=== PATIENT | female | born 1965 | race Caucasian/White ===

== ENCOUNTER → 2018-09-08 | Outpatient (CLI) | payer MEDICARE ==
--- NOTE | 2018-09-17 12:58 | MM ---
Reason for exam: screening (asymptomatic). Last mammogram was performed 1 year and 1 month ago. History: Patient is postmenopausal and had first child at age 34. Family history of breast cancer in sister at age 43. Took hormonal contraceptives for 20 years beginning at age 13. Took estrogen for 4 years beginning at age 42. Took progesterone for 4 years beginning at age 42. Physical Findings: A clinical breast exam by your physician is recommended on an annual basis and results should be correlated with mammographic findings. MG 3D Screening Mammo W/Cad Bilateral CC and MLO view(s) were taken. Prior study comparison: July 24, 2017, mammogram, performed at [facility]. September 26, 2015, mammogram, performed at [facility]. September 11, 2015, mammogram, performed at [facility]. October 06, 2012, bilateral digital screening mammo w/CAD. September 26, 2011, bilateral digital screening mammo w/CAD. The breast tissue is heterogeneously dense. This may lower the sensitivity of mammography. There are benign appearing round calcifications bilaterally. There is no discrete abnormality. ASSESSMENT: Benign, BI-RAD 2 RECOMMENDATION: Routine screening mammogram of both breasts in 1 year.
== END | disposition home or self-care (01) ==
LOC: RADMAMWWP 15:03
PROVIDERS: ATTEND Family Medicine
DX: Z12.31 Encounter for screening mammogram for malignant neoplasm of breast (principal)
CPT/HCPCS: 77063; 77067

== ENCOUNTER → 2018-11-04 | Outpatient (CLI) | payer MEDICARE | END | disposition home or self-care (01) | LOC: LABWHC1 13:21 | PROVIDERS: ATTEND Nurse Practitioner Acute Care | DX: I49.9 Cardiac arrhythmia, unspecified (principal) | CPT/HCPCS: 36415; 93005 ==

== ENCOUNTER → 2019-02-25 | Outpatient (CLI) | payer MEDICARE ==
--- NOTE | 2019-02-25 12:16 | MR ---
EXAMINATION TYPE: MR hip RT wo con DATE OF EXAM: 02/25/2019 COMPARISON: None HISTORY: Right hip pain Standard multiplanar, multisequence MRI departmental protocol Multiplanar, multisequence images of the right hip were acquired. Diffusion weighted imaging was perf ormed. FINDINGS: There is a bilateral curvilinear abnormal signal involving the subarticular bilateral femoral heads t he findings are suspicious for avascular necrosis. There is mild narrowing of the bilateral hip joint spaces with attenuation of the subarticular cartilage compatible with osteoarthritis. Right-sided la jose appears grossly intact. There is no evidence for acute fracture or dislocation. No intraosseous lesion seen. No free fluid evident. No evidence for soft tissue mass. Heterogenous bone marrow signal involving the pelvis is nonspecific. Correlate with CBC possible bone marrow reconversion. Postopera tive changes lumbar spine. IMPRESSION: 1. Findings are felt to bilateral avascular necrosis. Correlate clinically. 2. Abnormal decreased bone marrow signal throughout the pelvis could reflect bone marrow reconversion . Correlate with CBC.
== END ==
LOC: RADMRIMAIN 11:08
PROVIDERS: ATTEND Psychiatry & Neurology Neurology
DX: R93.7 Abnormal findings on diagnostic imaging of other parts of musculoskeletal system (principal); M25.551 Pain in right hip; Z88.8 Allergy status to other drugs, medicaments and biological substances

== ENCOUNTER → 2019-06-11 | Outpatient (CLI) | payer MEDICARE ==
--- NOTE | 2019-06-11 17:33 | MR ---
EXAMINATION TYPE: MR leo/nicole wo/w con DATE OF EXAM: 06/11/2019 COMPARISON: CT scan lumbar spine 02/12/2011. HISTORY: Cervicalgia, Low back pain, Radiculopathy L TECHNIQUE: Multiplanar, multisequence images of the lumbar spine is performed without and with IV contrast, util izing 10 mL intravenous Gadavist Multiplanar multiecho imaging of the cervical spine was obtained without and with IV contrast. FINDINGS: Cervical vertebra have normal alignment. There is metal artifact from previous fusion surgery at C5-6 and C6-7. There is posterior endplate spur formation at C6-7 with mild encroachment on the spinal ca nal. Canal is narrowed to 7.5 mm. There is similar narrowing at C3-4 due to posterior disc herniation and endplate spur formation. The brainstem is intact. I see no focal bone destruction. Contrast imag es show no pathologic enhancement. There is no evidence of cervical cord edema. Lumbar vertebra have normal alignment. There is narrowing at L5-S1 disc space with posterior fusion s urgery. There is no sign of lumbar spinal stenosis. There is mild lateral recess stenosis due to face t arthropathy at L3-4. There is no lumbar paraspinal mass. There is no compression fracture. I see no focal bone destruction. The contrast images show no lumbar pathologic enhancement. IMPRESSION: Previous cervical spine fusion surgery. There is a mild relative spinal stenosis at C3-4 and C6-7 as above. No fracture. Previous lumbar spine posterior fusion surgery. No spinal stenosis. No fracture. Lumbar spine appears not significantly different than old exam.
== END | disposition home or self-care (01) ==
LOC: RADMRIMAIN 10:22
PROVIDERS: ATTEND Psychiatry & Neurology Neurology
DX: M48.02 Spinal stenosis, cervical region (principal); M54.16 Radiculopathy, lumbar region; M54.6 Pain in thoracic spine; R51 Headache; Z98.1 Arthrodesis status
CPT/HCPCS: 72156; 72158; A9585

== ENCOUNTER → 2019-06-13 | Outpatient (CLI) | payer MEDICARE ==
--- NOTE | 2019-06-13 17:24 | MR ---
EXAMINATION TYPE: MR thoracic spine wo con DATE OF EXAM: 06/13/2019 COMPARISON: None HISTORY: Pain in thoracic spine, [place] CONTRAST: Performed utilizing 0 mL intravenous Gadavist gadolinium contrast. TECHNIQUE: Multiplanar, multiecho imaging on a 3.0 Anusha magnet is performed through the thoracic spi ne. Spinal cord maintains normal signal through its visualized course. Vertebral body alignment is normal. Vertebral body heights are preserved. Mild disc space narrowing and disc desiccation is within the lower thoracic spine. And T11-12: There is broad-based disc bulge with mild to moderate anterior thecal sac compression. Th is comes in close approximation with the spinal cord. No cord deformity is evident. No spinal canal s tenosis or neural foraminal stenosis is evident. T10-11: Broad-based disc bulge has moderate anterior thecal sac compression. This has cord contact. C ord deformity is not evident. No spinal canal stenosis or neural foraminal stenosis is present T8-9: Mild right paracentral disc bulge is present with anterior thecal sac contact. No spinal canal stenosis or neural foraminal stenosis is present. No spinal canal stenosis is evident. IMPRESSIONS: 1. Disc bulging present [id number] and T8-11-12 with mild to moderate anterior thecal sac compression. 2. Cord contact without cord deformity is present T10-T11. 3. Degenerative disc changes and disc desiccation lower thoracic spine.
--- NOTE | 2019-06-13 17:29 | MR ---
EXAMINATION TYPE: MR brain wo con DATE OF EXAM: 06/13/2019 COMPARISON: None HISTORY: Pain in thoracic spine, [place] CONTRAST: Performed utilizing 0 mL intravenous Gadavist gadolinium contrast. TECHNIQUE: Multiplanar, multiecho imaging on a 3.0 Anusha magnet is performed through the brain. Stud y is performed within 24 hours of arrival to the hospital. The craniovertebral junction is normal. The pituitary is normal. Diffusion-weighted imaging is performed. No abnormal hyperintensity is present to suggest an acute i ntracranial infarct or acute ischemic change. There are scattered punctate deep white matter changes within the bilateral cerebral hemispheres. Fin dings are nonspecific but could be related to microvascular ischemic change. Ventricles and sulci are appropriate for the patient age. IMPRESSIONS: 1. Chronic appearing deep white matter ischemic type changes.
== END | disposition home or self-care (01) ==
LOC: RADMRIMAIN 12:47
PROVIDERS: ATTEND Psychiatry & Neurology Neurology
DX: I67.82 Cerebral ischemia (principal); R90.89 Other abnormal findings on diagnostic imaging of central nervous system; M51.84 Other intervertebral disc disorders, thoracic region; M51.34 Other intervertebral disc degeneration, thoracic region; M54.16 Radiculopathy, lumbar region; M54.2 Cervicalgia
CPT/HCPCS: 70551; 72146

== ENCOUNTER → 2019-09-23 | Outpatient (CLI) | payer MEDICARE ==
--- NOTE | 2019-09-26 10:24 | MM ---
Reason for exam: screening (asymptomatic). Last mammogram was performed 1 year ago. History: Patient is postmenopausal and had first child at age 34. Family history of breast cancer in sister at age 43. Took hormonal contraceptives for 20 years beginning at age 13. Took estrogen for 4 years beginning at age 42. Took progesterone for 4 years beginning at age 42. Physical Findings: A clinical breast exam by your physician is recommended on an annual basis and results should be correlated with mammographic findings. MG 3D Screening Mammo W/Cad Bilateral CC and MLO view(s) were taken. Prior study comparison: September 08, 2018, bilateral MG 3d screening mammo w/cad. July 24, 2017, mammogram, performed at [facility]. The breast tissue is heterogeneously dense. This may lower the sensitivity of mammography. There is a 5mm mass in the left upper outer quadrant 6cm from nipple. Benign appearing bilateral calcifications. New 3mm asymmetry of the superior right breast at far posterior depth 13cm from nipple. ASSESSMENT: Incomplete: need additional imaging evaluation, BI-RAD 0 RECOMMENDATION: Special view mammogram of both breasts. If lesion persists on supplemental views, image directed ultrasound is recommended. [facility] will attempt to contact patient to return for supplemental views and ultrasound if indicated.
== END | disposition home or self-care (01) ==
LOC: RADMAMWWP 13:41
PROVIDERS: ATTEND Family Medicine
DX: Z12.31 Encounter for screening mammogram for malignant neoplasm of breast (principal)
CPT/HCPCS: 77063; 77067

== ENCOUNTER → 2019-10-06 | Outpatient (CLI) | payer MEDICARE ==
--- NOTE | 2019-10-06 13:17 | MM ---
Reason for exam: additional evaluation requested from abnormal screening. Last mammogram was performed less than 1 month ago. History: Patient is postmenopausal and had first child at age 34. Family history of breast cancer in sister at age 43. Took hormonal contraceptives for 20 years beginning at age 13. Took estrogen for 4 years beginning at age 42. Physical Findings: Nurse did not find any significant physical abnormalities on exam. MG 3D Work Up W/Cad TOVA Bilateral spot compression MLO view(s) were taken. XCCL view(s) were taken of the right breast. Spot compression CC and LM view(s) were taken of the left breast. Prior study comparison: September 23, 2019, bilateral MG 3d screening mammo w/cad. September 08, 2018, bilateral MG 3d screening mammo w/cad. The breast tissue is heterogeneously dense. This may lower the sensitivity of mammography. There is a 3mm right upper outer quadrant far posterior depth mass, likely a lymph node but not seen on prior exams. Ultrasound will be performed. The previously seen abnormality resolves on additional views and appears as fibroglandular tissue compatible with summation on the left breast. These results were verbally communicated with the patient and result sheet given to the patient on 10/06/19. ASSESSMENT: Incomplete: need additional imaging evaluation, BI-RAD 0 RECOMMENDATION: Ultrasound of the right breast. (upper outer quadrant)
--- NOTE | 2019-10-06 13:18 | USB ---
Reason for exam: additional evaluation requested from abnormal screening. History: Patient is postmenopausal and had first child at age 34. Family history of breast cancer in sister at age 43. Took hormonal contraceptives for 20 years beginning at age 13. Took estrogen for 4 years beginning at age 42. US Breast Workup Limited RT Right limited breast ultrasound including focal area of concern, retroareolar and axilla demonstrates no cystic or solid lesion seen. No sonographic correlate to the mammographic right finding. These results were verbally communicated with the patient and result sheet given to the patient on 10/06/19. ASSESSMENT: Probably benign, BI-RAD 3 RECOMMENDATION: Follow-up diagnostic mammogram of the right breast in 6 months.
== END | disposition home or self-care (01) ==
LOC: RADMAMWWP 10:33
PROVIDERS: ATTEND Family Medicine
DX: R92.8 Other abnormal and inconclusive findings on diagnostic imaging of breast (principal)
CPT/HCPCS: 77066; 76642; G0279; 77062

== ENCOUNTER → 2019-12-29 | Outpatient (CLI) | payer MEDICARE ==
[2019-12-29 14:00] LABS: HCT 46.7 % (34.0-46.0); HGB 15.3 gm/dL (11.4-16.0); MCH 30.6 pg (25.0-35.0); MCHC 32.9 g/dL (31.0-37.0); MCV 93.1 fL (80.0-100.0); Mean Platelet Volume 10.1; Platelet Count 120 k/uL (150-450); RBC 5.01 m/uL (3.80-5.40); RDW 12.8 % (11.5-15.5); WBC 10.4 k/uL (3.8-10.6)
[2019-12-29 14:04] LABS: Appearance,Urine Clear (Clear); Bilirubin,Urine Negative (Negative); Blood,Urine Negative (Negative); Color,Urine Light Yellow; Glucose,Urine (UA) Negative (Negative); Ketones,Urine Negative (Negative); Leukocyte Esterase,Urine Negative (Negative); Nitrite,Urine Negative (Negative); Protein,Urine Negative (Negative); Specific Gravity,Urine 1.007 (1.001-1.035); Urobilinogen,Urine <2.0 mg/dL (<2.0)
[2019-12-29 14:09] LABS: INR 0.9 (<1.2); Partial Thromboplastin Time 23.7 sec (22.0-30.0); Prothrombin Time 9.7 sec (9.0-12.0)
[2019-12-29 14:10] LABS: ALT 29 U/L (4-34); AST 40 U/L (14-36); African American GFR (CKD) >90 (>60 ml/min/1.73 sqM); Albumin 4.6 g/dL (3.5-5.0); Alkaline Phosphatase 91 U/L (38-126); Anion Gap 8 mmol/L; Blood Urea Nitrogen 16 mg/dL (7-17); Calcium 9.6 mg/dL (8.4-10.2); Carbon Dioxide 26 mmol/L (22-30); Chloride 103 mmol/L (98-107); Glucose 119 mg/dL (74-99); Non-African American GFR(CKD) >90 (>60 ml/min/1.73 sqM); Potassium 4.3 mmol/L (3.5-5.1); Sodium 137 mmol/L (137-145); Total Bilirubin 0.6 mg/dL (0.2-1.3); Total Protein 7.4 g/dL (6.3-8.2)
== END ==
LOC: LABPAT 12:54
PROVIDERS: ATTEND Orthopaedic Surgery
DX: Z01.818 Encounter for other preprocedural examination (principal); Z01.812 Encounter for preprocedural laboratory examination; M16.12 Unilateral primary osteoarthritis, left hip; Z51.81 Encounter for therapeutic drug level monitoring; Z79.01 Long term (current) use of anticoagulants
CPT/HCPCS: 36415; 80053; 81003; 85027; 85610; 85730; 87070; 93005

== ENCOUNTER → 2020-03-23 | Outpatient (CLI) | payer MEDICARE ==
[2020-03-23 13:54] LABS: HCT 46.1 % (34.0-46.0); HGB 15.1 gm/dL (11.4-16.0); MCH 31.2 pg (25.0-35.0); MCHC 32.8 g/dL (31.0-37.0); Mean Platelet Volume 9.5; Platelet Count 155 k/uL (150-450); RBC 4.85 m/uL (3.80-5.40); RDW 13.7 % (11.5-15.5); WBC 8.7 k/uL (3.8-10.6)
[2020-03-23 14:02] LABS: INR 0.9 (<1.2); Prothrombin Time 9.6 sec (9.0-12.0)
[2020-03-23 14:05] LABS: Appearance,Urine Clear (Clear); Bilirubin,Urine Negative (Negative); Blood,Urine Negative (Negative); Color,Urine Light Yellow; Glucose,Urine (UA) Negative (Negative); Ketones,Urine Negative (Negative); Leukocyte Esterase,Urine Negative (Negative); Nitrite,Urine Negative (Negative); PH, Urine 7.5 (5.0-8.0); Protein,Urine Negative (Negative); Specific Gravity,Urine 1.008 (1.001-1.035); Urobilinogen,Urine <2.0 mg/dL (<2.0)
[2020-03-23 14:07] LABS: ALT 26 U/L (4-34); AST 35 U/L (14-36); African American GFR (CKD) >90 (>60 ml/min/1.73 sqM); Albumin 4.2 g/dL (3.5-5.0); Alkaline Phosphatase 100 U/L (38-126); Anion Gap 6 mmol/L; Blood Urea Nitrogen 14 mg/dL (7-17); Calcium 9.4 mg/dL (8.4-10.2); Carbon Dioxide 25 mmol/L (22-30); Chloride 106 mmol/L (98-107); Glucose 111 mg/dL (74-99); Non-African American GFR(CKD) >90 (>60 ml/min/1.73 sqM); Potassium 4.8 mmol/L (3.5-5.1); Sodium 137 mmol/L (137-145); Total Bilirubin 0.6 mg/dL (0.2-1.3); Total Protein 7.3 g/dL (6.3-8.2)
== END | disposition home or self-care (01) ==
LOC: LABWHC1 12:13
PROVIDERS: ATTEND Orthopaedic Surgery
DX: Z01.818 Encounter for other preprocedural examination (principal)
CPT/HCPCS: 80053; 85027; 85610; 85730; 81003; 36415; U0003; 86850; 86900; 86901

== ENCOUNTER 2020-03-27 10:03 | Day surgery (SDC) | payer MEDICARE ==
[2020-03-22 14:15] VITALS: BMI 37.3
[~2020-03-27 10:03] MED LIST: ACETAMINOPHEN TAB 500 MG TAB PO ONE; DEXAMETHASONE SOD PHOSPHATE 10 MG/ML 1 ML VIAL IV ONE; GABAPENTIN 300 MG CAP PO ONE; LIDOCAINE 1% (10MG/ML) FOR IV START INTRADERMA PRN; MELOXICAM 7.5 MG TAB PO ONE; ONDANSETRON 4 MG/2 ML VIAL IVP ONE; TRANEXAMIC ACID 1,000 MG in SODIUM CHLORIDE 0.9% 100 ML IVPB ONE
[2020-03-27] MEDS: LACTATED RINGERS 1,000 ML IV SCH (10:33)
[2020-03-27] MEDS ORDERED: ONDANSETRON 4 MG/2 ML VIAL IVP PRN (11:26)
[2020-03-27] MEDS ORDERED: HYDROmorphone 0.5 MG/0.5 ML SYRINGE IVP PRN ×2 (11:26)
[2020-03-27] MEDS ORDERED: MAGNESIUM HYDROXIDE 2,400 MG/10 ML CUP PO PRN (11:26)
[2020-03-27] MEDS ORDERED: NALOXONE 0.4 MG/ML 1 ML VIAL IV PRN (11:26)
[2020-03-27] MEDS ORDERED: HYDROmorphone 1 MG/ML 1 ML SYRINGE IVP PRN (11:26)
[2020-03-27] MEDS ORDERED: hydrOXYzine PAMOATE 25 MG CAP PO PRN (11:26)
[2020-03-27] MEDS ORDERED: MIDAZOLAM 2 MG/2 ML VIAL ONE (11:41)
[2020-03-27] MEDS ORDERED: LIDOCAINE 1% INJ 10MG/ML (20 ML MDV) ONE (11:41)
[2020-03-27] MEDS ORDERED: SUCCINYLCHOLINE CHLORIDE VIAL 200 MG/10 ML VIAL IV ONE (11:41)
[2020-03-27] MEDS ORDERED: HEPARIN SODIUM,PORCINE 10,000 UNIT/ML 1 ML VIAL ONE (11:41)
[2020-03-27] MEDS ORDERED: fentaNYL (PF) 50 MCG/ML 2 ML AMP ONE (11:41)
[2020-03-27] MEDS ORDERED: SODIUM CHLORIDE 0.9% IRRIG 1,000 ML BTL IRRIGATION ONE (11:41)
[2020-03-27] MEDS ORDERED: PROPOFOL 10 MG/ML 20 ML VIAL IV ONE (11:41)
[2020-03-27] MEDS ORDERED: ePHEDrine SULFATE/0.9% NACL/PF 50 MG/5 ML SYRINGE IV ONE (11:41)
[2020-03-27] MEDS ORDERED: ONDANSETRON 4 MG/2 ML VIAL ONE (11:41)
[2020-03-27] MEDS ORDERED: HYDROmorphone (PF) 1 MG/ML ONE (11:41)
[2020-03-27] MEDS ORDERED: ceFAZolin 3,000 MG in SODIUM CHLORIDE 0.9% IRRIGATIO 3,000 ML IRRIGATION ONE (12:31)
[2020-03-27] MEDS: ROPIVACAINE 246.25 MG, EPINEPHrine 0.5 MG, KETOROLAC 30 MG, cloNIDine HCL/PF 80 MCG, WA... MISCELLANE ONE ×10 (12:32→13:11)
[2020-03-27] MEDS ORDERED: LACTATED RINGERS 1,000 ML IV ONE (12:58)
--- NOTE | 2020-03-27 13:20 | P.OP ---
Date of Procedure: 03/27/20 Preoperative Diagnosis: Severe avascular necrosis left hip Postoperative Diagnosis: Severe avacular necrosis left hip Procedure(s) Performed: Left total hip arthroplasty with a direct anterior approach Implants: Bangura and nephew Polarstem size 6 standard [employer]ura [employer] Nephew R3, 3 hole acetabular shell, 52 mm [employer]hew reflection 6.5 mm cancellus screw, 20 mm 2 [employer]hew R3, XLPE 20 acetabular liner [employer] Nephew Oxinium femoral head 36 m, +0 All components were press-fit. The articulation is Oxinium on polyethylene. Anesthesia: spinal Surgeon: Paul Trejo Office Manager Executive Assistant #1: Augustina Umaña Estimated Blood Loss (ml): 400 (190 mL returned with Cell Saver) Pathology: other (Femoral head) Condition: stable Disposition: PACU Indications for Procedure: After failure of conservative treatment we discussed the surgical and nonsurgical treatment options at length. Patient wishes to proceed with a total hip arthroplasty with a direct anterior approach. Complications specific to this procedure were discussed at length, including but not limited to infection, leg length discrepancy, dislocation, and nerve injury. Covid-19 was also discussed at length with the patient, and they are aware of the current policies and procedures. The patient was given the option of delaying surgery, but they elect to proceed knowing these risks. Patient is aware of all these complications and informed consent was obtained Operative Findings: The operative findings are consistent with severe avascular necrosis of the left hip Description of Procedure: Patient was seen and evaluated in the preoperative area, consent was reviewed, and the surgical site was marked with a skin marker. Patient was then brought to the operating room and given prophylactic antibiotics intravenously. 1 g of Tranexamic acid was also given. A spinal anesthetic was administered by the anesthesia department. The patient was then placed on the Painter table with the bony prominences well-padded. The hip area was then prepped and draped in usual sterile fashion. A universal timeout was then performed, which confirmed the patient's name, surgical site, ALLERGIES, and procedure being performed. Next the incision site was located at 1 cm distal and 1 cm lateral to the anterior superior iliac spine. The skin and subcutaneous tissues were sharply incised. Incision was carefully dissected down to the fascia overlying the tensor fascia trevor muscle. This fascia was then incised in line with the incision. Next, using blunt finger dissection, the tensor fascia trevor muscle was dissected off its investing fascia. The muscle was then carefully retracted laterally with a cobra retractor over the lateral neck of the femur. Next, the circumflex vessels were identified and cauterized using the AquaMantis device. The anterior hip capsule was then exposed. The capsule was then opened and an inverted T fashion. Cobra retractors were then placed intracapsularly. The proximal femur was then visualized. The femoral neck was then osteotomized appropriate level above the lesser trochanter. Small amount of traction was placed with the Painter table. A small wedge of bone was then removed from the remaining femoral head. Next, using a corkscrew femoral head was easily removed from the acetabulum. On gross visual inspection, the femoral head had evidence of avascular necrosis with subchondral collapse. Attention was then turned to the acetabulum. the acetabulum was exposed and any remaining labrum was excised. Sequential reaming of the acetabulum was performed using fluoroscopic guidance. When the appropriate size was reached, a trial was then placed. The position and fit of the trial was checked with fluoroscopy. The trial was then removed. Then, using fluoroscopic guidance, the final implant was impacted at 20 of anteversion and 40 of abduction, and fully seated in the acetabulum. 2 screws were then placed in the acetabulum. Again fluoroscopy was used to check position of the screws. Next, the liner was then impacted, with a 20 elevated liner located in the anterior superior quadrant. Component locking was confirmed. Attention was then directed to the femur. With the aid of the Painter table, the femur was externally rotated to approximately 130, extended, and abducted under the opposite leg. A side hook was then placed under the proximal femur, and the side hook elevator was used to elevate the proximal femur. Retractors were then placed. A capsular release was performed, as well as a release of the conjoined tendon, which afforded excellent visualization of the proximal femur. Next, a box osteotome was used to lateralize the proximal femur. A supervisor cigar making hand was then used to locate the femoral canal. Sequential broaching was then performed with appropriate size which afforded excellent fixation in the proximal femur. A trial was then placed with appropriate head and neck, and the hip was gently reduced with the aid of the Painter table. Fluoroscopy was then used to check position of the components, as well as to ensure equal leg lengths. The hip was then gently dislocated and the trials were then removed. Final implants were then impacted and the hip was again reduced. Final fluoroscopic x-rays confirmed that the components were in anatomic position, as well as equal leg lengths. The hip was also taken through range of motion, and found to be stable. The hip was then copiously irrigated with antibiotic solution with pulsatile lavage. The hip was then irrigated with Irrisept solution. The soft tissues were then injected with a ropivacaine solution, which consisted of 246.25 mg of ropivacaine, 0.5 mg of epinephrine, 30 mg of Toradol, 80 g of clonidine, and 48.45 mL of sterile water, for a total of 100 mL of fluid injected. A second dose of 1 g of Tranexamic acid was also given. the fascia was then closed with 2-0 strata fix suture. The subcutaneous tissue was closed with 3-0 Vicryl. The subcuticular tissue was closed with 3-0 strata fix suture. The skin was then closed with Dermabond glue and a sterile silver dressing. The patient was then transferred to the recovery room in stable condition. The undertaker assistant KARIME Crawford was required due to the complexity of surgery, and the need for skilled account management assistant for positioning, draping, exposure, retraction, and closure of the wound.
--- NOTE | 2020-03-27 13:31 | FL ---
EXAMINATION TYPE: FL guidance operating room DATE OF EXAM: 03/27/2020 HISTORY: Fluoroscopy time 36 seconds of fluoroscopy provided. IMPRESSION: 1. Fluoroscopy time.
--- NOTE | 2020-03-27 13:32 | XR ---
EXAMINATION TYPE: XR Hip Limited LT DATE OF EXAM: 03/27/2020 COMPARISON: NONE HISTORY: Postop TECHNIQUE: One view submitted. FINDINGS: There is postsurgical change in near anatomic alignment. There is soft tissue edema and emphysema. IMPRESSION: 1. Postoperative change. Appears in near-anatomic alignment.
[2020-03-27] MEDS: HYDROmorphone 0.5 MG/0.5 ML SYRINGE IVP PRN ×2 (13:58→14:06)
[2020-03-27] MEDS: SODIUM CHLORIDE 0.9% 1,000 ML IV SCH (15:34)
[2020-03-27 16:20] VITALS: RESP 18
[2020-03-27] MEDS ORDERED: OXYMETAZOLINE 0.05% NASL SPRAY 1 SPRAY BOTTLE EA NOSTRIL PRN (17:21)
[2020-03-27] MEDS ORDERED: DOXYLAMINE SUCCINATE 50 MG PO PRN (17:21)
[2020-03-27] MEDS: MORPHINE SULFATE ER 30 MG TABLET PO PRN (17:31)
--- NOTE | 2020-03-27 17:37 | P.CONS ---
History of Present Illness - Reason for Consult Recommendations regarding hypertensive medications - History of Present Illness Patient is admitted for left hip arthroplasty direct anterior approach for severe avascular necrosis of the left hip. Patient is postoperative only a few hours still coming out of anesthesia. Patient does have history of hypertension patient the pain is fairly well controlled at this time patient denied any fever chills nausea vomiting doesn't have a Anderson catheter didn't pass gas yet. Review of Systems REVIEW OF SYSTEMS: CONSTITUTIONAL: No fever, no malaise, no fatigue. HEENT: No recent visual problems or hearing problems. Denied any sore throat. CARDIOVASCULAR: No chest pain, orthopnea, PND, no palpitations, no syncope. PULMONARY: No shortness of breath, no cough, no hemoptysis. GASTROINTESTINAL: No diarrhea, no nausea, no vomiting, no abdominal pain. NEUROLOGICAL: No headaches, no weakness, no numbness. HEMATOLOGICAL: Denies any bleeding or petechiae. GENITOURINARY: Denies any burning micturition, frequency, or urgency. MUSCULOSKELETAL/RHEUMATOLOGICAL: Denies any joint pain, swelling, or any muscle pain. ENDOCRINE: Denies any polyuria or polydipsia. The rest of the 14-point review of systems is negative. Past Medical History Past Medical History: Fibromyalgia, Osteoarthritis (OA), Pneumonia, Thyroid Disorder Additional Past Medical History / Comment(s): migraines, "racing" heart rate, varicose veins, ulcer, lupus, sjogrens, thrombocytopeia, sinus issues History of Any Multi-Drug Resistant Organisms: None Reported Past Surgical History: Back Surgery, Hysterectomy, Tonsillectomy Additional Past Surgical History / Comment(s): spleenectomy, laparoscopy, alon cataracts with lens implants, cervical fusion x 2, lumbar fusion, alon carpal tunnel, rt leg "ablation" for a leak in a vein, Past Anesthesia/Blood Transfusion Reactions: No Reported Reaction Past Psychological History: No Psychological Hx Reported Smoking Status: Current every day smoker Past Alcohol Use History: Rare Additional Past Alcohol Use History / Comment(s): smoking 1/2 PPD, has smoked for 40 yrs Past Drug Use History: None Reported - Past Family History Mother Family Medical History: Cancer Additional Family Medical History / Comment(s): colon Medications and Allergies Home Medications Medication Instructions Recorded Confirmed Type Ascorbic Acid [Vitamin C] 1,000 mg PO DAILY 03/22/20 03/22/20 History Atorvastatin [Lipitor] 10 mg PO DAILY 03/22/20 03/22/20 History DULoxetine HCL [Cymbalta] 60 mg PO DAILY 03/22/20 03/22/20 History Doxylamine Succinate [Unisom] 50 mg PO HS 03/22/20 03/22/20 History Fluticasone Nasal Hundred [Flonase 1 spray EA NOSTRIL DAILY PRN 03/22/20 03/22/20 History Nasal Hundred] Hydroxychloroquine Sulfate 400 mg PO DAILY 03/22/20 03/22/20 History [Plaquenil] Ketorolac [Toradol] 10 mg PO BID PRN 03/22/20 03/22/20 History Levothyroxine Sodium [Synthroid] 100 mcg PO DAILY 03/22/20 03/22/20 History Magnesium 250 mg PO DAILY 03/22/20 03/22/20 History Morphine Sulfate [Ms Contin] 30 mg PO Q12HR 03/22/20 03/27/20 History Multivitamins, Thera [Multivitamin 1 tab PO HS 03/22/20 03/22/20 History (formulary)] Nadolol [Corgard] 80 mg PO DAILY 03/22/20 03/22/20 History Oxymetazoline 0.05% Nasl Hundred 2 spray EA NOSTRIL BID PRN 03/22/20 03/22/20 History [Afrin 0.05% Nasal Hundred] Phenylephrine HCl [Sudafed PE] 10 mg PO DAILY PRN 03/22/20 03/27/20 History Vitamin B Complex 1 each PO DAILY 03/22/20 03/22/20 History Zolpidem Tartrate [Zolpidem 12.5 mg PO HS PRN 03/22/20 03/22/20 History Tartrate ER] oxyCODONE HCL [OxyCONTIN] 10 mg PO Q12H 03/22/20 03/22/20 History Allergies Allergy/AdvReac Type Severity Reaction Status Date / Time Androgenic Anabolic Steroid AdvReac Unknown Verified 03/27/20 10:17 Antihistamines - Alkylamine AdvReac Unknown Verified 03/27/20 10:17 Physical Exam Vitals: Vital Signs Temp Pulse Pulse Resp BP BP Pulse Ox 03/27/20 16:54 74 110/73 98 03/27/20 16:24 69 119/82 97 03/27/20 16:09 69 110/74 100 03/27/20 15:54 69 117/77 99 03/27/20 15:39 69 116/77 99 03/27/20 15:29 71 18 03/27/20 15:24 97.4 F L 73 121/83 100 03/27/20 15:22 98.4 F 71 18 120/84 94 L 03/27/20 14:45 97.2 F L 71 16 127/76 100 03/27/20 14:30 71 17 121/72 99 03/27/20 14:15 69 16 122/71 100 03/27/20 14:00 71 16 127/79 99 03/27/20 13:44 97.2 F L 68 16 129/74 97 03/27/20 10:25 98.6 F 82 17 112/68 97 Intake and Output 03/27/20 03/27/20 03/27/20 06:59 14:59 22:59 Intake Total 1451 Output Total 400 Balance 1051 Intake: IV 1451 Output: Estimated Blood Loss 400 Other: Weight 106.2 kg PHYSICAL EXAMINATION: GENERAL: The patient is drowsy and oriented x3, not in any acute distress. Well developed, well nourished. HEENT: Pupils are round and equally reacting to light. EOMI. No scleral icterus. No conjunctival pallor. Normocephalic, atraumatic. No pharyngeal erythema. No thyromegaly. CARDIOVASCULAR: S1 and S2 present. No murmurs, rubs, or gallops. PULMONARY: Chest is clear to auscultation, no wheezing or crackles. ABDOMEN: Soft, nontender, nondistended, normoactive bowel sounds. No palpable organomegaly. MUSCULOSKELETAL: No joint swelling or deformity. EXTREMITIES: No cyanosis, clubbing, or pedal edema. NEUROLOGICAL: Gross neurological examination did not reveal any focal deficits. SKIN: No rashes. Assessment and Plan Plan: -Hypertension: Patient will be started on beta hari patient is on metabolic home patient blood pressure is expected to be bit low postoperatively. -Left hip arthroplasty and management as per primary service and patient is on the aspirin. Aspirin 325 mg for DVT prophylaxis -Hyperthyroidism continue with levothyroxine -depression continue with Cymbalta -Hyperlipidemia continue with Lipitor We'll continue to follow the patient on as-needed basis.
[2020-03-27] MEDS: oxyCODONE ER 10 MG TAB.ER.12H PO PRN (19:40)
[2020-03-27] MEDS ORDERED: SENNOSIDES-DOCUSATE SODIUM 1 EACH TAB PO SCH (21:00)
[2020-03-27] MEDS: ASPIRIN 81 MG PO SCH (21:42)
[2020-03-28] MEDS: SODIUM CHLORIDE 0.9% 1,000 ML IV SCH (00:18)
[2020-03-28] MEDS: LACTATED RINGERS 1,000 ML IV SCH (05:40)
[2020-03-28] MEDS: MORPHINE SULFATE ER 30 MG TABLET PO PRN (06:28)
[2020-03-28] MEDS ORDERED: LEVOTHYROXINE 100 MCG TAB PO SCH (06:30)
[2020-03-28] MEDS: oxyCODONE ER 10 MG TAB.ER.12H PO PRN (08:17)
[2020-03-28] MEDS: ASPIRIN 81 MG PO SCH (08:18)
[2020-03-28 08:22] LABS: Basophils # (A) 0.1 k/uL (0-0.2); Basophils % (A) 1 %; Eosinophils # (A) 0.3 k/uL (0-0.7); Eosinophils % (A) 3 %; HCT 37.7 % (34.0-46.0); HGB 12.2 gm/dL (11.4-16.0); Hypochromasia Slight; Lymphocytes # (A) 3.3 k/uL (1.0-4.8); Lymphocytes % (A) 25 %; MCH 31.1 pg (25.0-35.0); MCHC 32.3 g/dL (31.0-37.0); MCV 96.4 fL (80.0-100.0); Mean Platelet Volume 9.6; Monocytes # (A) 0.9 k/uL (0-1.0); Monocytes % (A) 7 %; Neutrophils # (A) 8.5 k/uL (1.3-7.7); Neutrophils % (A) 64 %; RBC 3.91 m/uL (3.80-5.40); RDW 13.6 % (11.5-15.5); WBC 13.4 k/uL (3.8-10.6)
[2020-03-28 08:45] VITALS: BP 95/63; PULSE 92; TEMP 98.7
--- NOTE | 2020-03-28 08:57 | P.DS ---
Providers Expected date of discharge: 03/28/20 Attending physician: Paul Trejo Consults: 03/27/20 11:26 Consult Physician Routine Consulting Provider: Jose J Carpenter Consult Reason/Comments: medical management Do you want consulting provider notified?: Yes Primary care physician: Gricelda Murdock - Discharge Diagnosis(es) (1) S/P total hip arthroplasty Current Visit: Yes Status: Acute (2) Avascular necrosis of bone of left hip Current Visit: Yes Status: Acute Hospital Course: This is a 54-year-old female with known history of avascular necrosis of the left hip. The patient presents for evaluation. After discussion and consideration patient elects to proceed with total hip arthroplasty. The patient is seen preoperatively by Dr. Trejo and medically cleared for surgery by their primary care physician. Patient is admitted to [facility] on 03/27/2020 for total hip arthroplasty. The procedures performed without complication or sequelae. The patient is doing well postoperatively. Labs and vital signs are stable on day of discharge. On day of discharge patient's hip incision is healing well. There is minimal erythema. There is no drainage noted at this time. There is minimal soft tissue swelling to the hip and thigh. Patient has full foot and ankle motion without difficulty or pain. Calf is soft and nontender to palpation. Neurovascular status to the left lower extremity is intact. Patient is discharged home in good condition. Patient has a pain contract with who will be prescribing post operative pain medication. Please see med rec for accurate list of home medications. Plan - Discharge Summary Discharge Rx Participant: Yes New Discharge Prescriptions: New Aspirin [Adult Low Dose Aspirin EC] 81 mg PO BID 30 Days #60 tablet. No Action oxyCODONE HCL [OxyCONTIN] 10 mg PO Q12H Morphine Sulfate [Ms Contin] 30 mg PO Q12HR Ketorolac [Toradol] 10 mg PO BID PRN PRN Reason: Pain Hydroxychloroquine Sulfate [Plaquenil] 400 mg PO DAILY Nadolol [Corgard] 80 mg PO DAILY DULoxetine HCL [Cymbalta] 60 mg PO DAILY Zolpidem Tartrate [Zolpidem Tartrate ER] 12.5 mg PO HS PRN PRN Reason: sleep Doxylamine Succinate [Unisom] 50 mg PO HS Atorvastatin [Lipitor] 10 mg PO DAILY Levothyroxine Sodium [Synthroid] 100 mcg PO DAILY Multivitamins, Thera [Multivitamin (formulary)] 1 tab PO HS Ascorbic Acid [Vitamin C] 1,000 mg PO DAILY Vitamin B Complex 1 each PO DAILY Magnesium 250 mg PO DAILY Oxymetazoline 0.05% Nasl [place] [Afrin 0.05% Nasal [place]] 2 spray EA NOSTRIL BID PRN PRN Reason: congesstion Fluticasone Nasal [place] [Flonase Nasal [place]] 1 spray EA NOSTRIL DAILY PRN PRN Reason: Congestion Phenylephrine HCl [Sudafed PE] 10 mg PO DAILY PRN PRN Reason: congesion Discharge Medication List Ascorbic Acid [Vitamin C] 1,000 mg PO DAILY 03/22/20 [History] Atorvastatin [Lipitor] 10 mg PO DAILY 03/22/20 [History] DULoxetine HCL [Cymbalta] 60 mg PO DAILY 03/22/20 [History] Doxylamine Succinate [Unisom] 50 mg PO HS 03/22/20 [History] Fluticasone Nasal [place] [Flonase Nasal [place]] 1 spray EA NOSTRIL DAILY PRN 03/22/20 [History] Hydroxychloroquine Sulfate [Plaquenil] 400 mg PO DAILY 03/22/20 [History] Ketorolac [Toradol] 10 mg PO BID PRN 03/22/20 [History] Levothyroxine Sodium [Synthroid] 100 mcg PO DAILY 03/22/20 [History] Magnesium 250 mg PO DAILY 03/22/20 [History] Morphine Sulfate [Ms Contin] 30 mg PO Q12HR 03/22/20 [History] Multivitamins, Thera [Multivitamin (formulary)] 1 tab PO HS 03/22/20 [History] Nadolol [Corgard] 80 mg PO DAILY 03/22/20 [History] Oxymetazoline 0.05% Nasl [place] [Afrin 0.05% Nasal [place]] 2 spray EA NOSTRIL BID PRN 03/22/20 [History] Phenylephrine HCl [Sudafed PE] 10 mg PO DAILY PRN 03/22/20 [History] Vitamin B Complex 1 each PO DAILY 03/22/20 [History] Zolpidem Tartrate [Zolpidem Tartrate ER] 12.5 mg PO HS PRN 03/22/20 [History] oxyCODONE HCL [OxyCONTIN] 10 mg PO Q12H 03/22/20 [History] Aspirin [Adult Low Dose Aspirin EC] 81 mg PO BID 30 Days #60 tablet. 03/28/20 [Rx] Follow up Appointment(s)/Referral(s): Gricelda Murdock MD [Primary Care Provider] - 1 Week Paul Trejo DO [Doctor of Osteopathic Medicine] - 04/11/20 11:00 am Patient Instructions/Handouts: Anterior Hip Replacement (DC) Activity/Diet/Wound Care/Special Instructions: Weightbearing as tolerated with walker. Leave dressing intact. Dressing may be removed by home care nurse or by patient in 10 days. May shower with dressing on. Recommend use of compression stockings daily until follow up to help prevent swelling and blood clots. May remove at night before sleeping. Please follow-up with [facility] in 2 weeks and call with any questions or concerns, . Discharge Disposition: HOME WITH HOME HEALTH SERVICES
[2020-03-28] MEDS ORDERED: DULoxetine HCL 60 MG CAPSULE.DR PO SCH (09:00)
[2020-03-28] MEDS ORDERED: ATORVASTATIN 10 MG TAB PO SCH (09:00)
[2020-03-28] MEDS ORDERED: NADOLOL 20 MG TAB PO SCH (09:00)
[2020-03-28] MEDS ORDERED: HYDROXYCHLOROQUINE SULFATE 200 MG TAB PO SCH (09:00)
[2020-03-28] MEDS ORDERED: MAGNESIUM OXIDE 400 MG TAB PO SCH (09:00)
[2020-03-28 11:07] LABS: Platelet Count 87 k/uL (150-450)
[2020-03-28 11:08] LABS: Poikilocytosis (M) Present
--- NOTE | 2020-03-28 12:52 | P.PN ---
Subjective no overnight events patient is clinically doing well but blood pressure remains low and 90 systolic after the patient patient blood pressure is not high at home either because of which are switching Nadolol all to metoprolol to avoid reflex tachycardia from discontinuation of nadolol Constitutional: Denied any fatigue denied any fever. Cardio vascular: denied any chest pain, palpitations Gastrointestinal denied any nausea vomiting Pulmonary: Denied any shortness of breath cough Neurologic denied any new focal deficits All inpatient medications were reviewed and appropriate changes in these medications as dictated in the interval history and assessment and plan. Objective - Vital Signs Vital signs: Vital Signs Temp 98.7 F 03/28/20 07:00 Pulse 92 03/28/20 08:00 Resp 18 03/28/20 08:00 BP 95/63 03/28/20 07:00 Pulse Ox 90 L 03/28/20 07:00 Intake & Output 03/27/20 03/28/20 03/28/20 18:59 06:59 18:59 Intake Total 1451 Output Total 400 400 300 Balance 1051 -400 -300 Weight 106.2 kg Intake: IV 1451 Output: Urine 400 300 Straight 300 Estimated Blood Loss 400 Other: Voiding Method Toilet # Bowel Movements 1 - Exam PHYSICAL EXAMINATION: GENERAL: The patient is alert and oriented x3, not in any acute distress. Obese HEENT: Pupils are round and equally reacting to light. EOMI. No scleral icterus. No conjunctival pallor. Normocephalic, atraumatic. No pharyngeal erythema. No thyromegaly. CARDIOVASCULAR: S1 and S2 present. No murmurs, rubs, or gallops. PULMONARY: Chest is clear to auscultation, no wheezing or crackles. ABDOMEN: Soft, chills or diarrhea secondary to be clear, sluggish bowel sounds Extremities: No cubbing, or pedal edema. NEUROLOGICAL: Gross neurological examination did not reveal any focal deficits. SKIN: No rashes. - Labs CBC & Chem 7: 03/28/20 07:34 Labs: Abnormal Lab Results - Last 24 Hours (Table) 03/28/20 Range/Units 07:34 WBC 13.4 H (3.8-10.6) k/uL Plt Count 87 L (150-450) k/uL Neutrophils # 8.5 H (1.3-7.7) k/uL Assessment and Plan Plan: -Hypertension: [place] as mentioned above -Left hip arthroplasty and management as per primary service and patient is on the aspirin. Aspirin 325 mg for DVT prophylaxis -Hyperthyroidism continue with levothyroxine -depression continue with Cymbalta -Hyperlipidemia continue with Lipitor
== END 2020-03-28 14:19 | disposition home health service (06) ==
LOC: OR 10:03 → 4SSUR 14:38 → OR 03-28 14:19
PROVIDERS: ATTEND Orthopaedic Surgery
DX: M87.052 Idiopathic aseptic necrosis of left femur (principal); I10 Essential (primary) hypertension; F32.9 Major depressive disorder, single episode, unspecified; E78.5 Hyperlipidemia, unspecified; E05.90 Thyrotoxicosis, unspecified without thyrotoxic crisis or storm; M35.00 Sjogren syndrome, unspecified; M32.9 Systemic lupus erythematosus, unspecified; D69.3 Immune thrombocytopenic purpura; F17.210 Nicotine dependence, cigarettes, uncomplicated; E66.9 Obesity, unspecified; G43.909 Migraine, unspecified, not intractable, without status migrainosus; I83.90 Asymptomatic varicose veins of unspecified lower extremity; M79.7 Fibromyalgia; Z88.8 Allergy status to other drugs, medicaments and biological substances; Z79.899 Other long term (current) drug therapy; Z79.890 Hormone replacement therapy; Z98.1 Arthrodesis status; Z87.01 Personal history of pneumonia (recurrent); Z90.710 Acquired absence of both cervix and uterus; Z90.89 Acquired absence of other organs; Z90.81 Acquired absence of spleen; Z98.41 Cataract extraction status, right eye; Z98.42 Cataract extraction status, left eye; Z96.1 Presence of intraocular lens; Z80.0 Family history of malignant neoplasm of digestive organs; Z82.49 Family history of ischemic heart disease and other diseases of the circulatory system; Z83.3 Family history of diabetes mellitus; Z68.37 Body mass index [BMI] 37.0-37.9, adult
CPT/HCPCS: 97110; 97161; 97535; 97165; 86891; 86900; 86901; 85025; 86850; 88300; 73501 ×2; 27130; P9022; C1776; J2250; J0171; J0330; J1644; J0690 ×3; J2405; J2001; J3010; J1885; J1170 ×2; J2795; J2704; J0735

== ENCOUNTER → 2020-05-15 | Outpatient (CLI) | payer MEDICARE ==
--- NOTE | 2020-05-15 15:48 | XR ---
Lumbar spine HISTORY: Intervertebral disc degeneration 4 views of the lumbar spine No comparisons Patient shows posterior lumbar fusion at L5-S1. Laminectomies are present at L5. There is a slight sp inal curvature. Lumbar vertebral bodies show preserved height and bone mineralization. Loss of disc h eight present L5-S1. There is multilevel spondylosis. Sclerosis in the posterior elements is consiste nt with facet arthropathy. IMPRESSION: Postop changes, degenerative disc disease. Facet arthropathy.
== END | disposition home or self-care (01) ==
LOC: RADXRMAIN 13:39
PROVIDERS: ATTEND Family Medicine
DX: M51.36 Other intervertebral disc degeneration, lumbar region (principal); M47.896 Other spondylosis, lumbar region; Z98.890 Other specified postprocedural states
CPT/HCPCS: 72100

== ENCOUNTER → 2020-05-29 | Outpatient (CLI) | payer MEDICARE ==
--- NOTE | 2020-05-29 12:55 | ECHOF ---
Referral Reason:R60.0 Localized edema MEASUREMENTS -------- HEIGHT: 168.9 cm WEIGHT: 112.5 kg BP: 108/60 RVIDd: 2.7 cm (< 3.3) IVSd: 1.0 cm (0.6 - 1.1) LVIDd: 4.3 cm (3.9 - 5.3) LVPWd: 1.0 cm (0.6 - 1.1) IVSs: 1.3 cm LVIDs: 2.7 cm LVPWs: 1.8 cm LA Diam: 3.4 cm (2.7 - 3.8) LAESV Index (A-L): 18.71 ml/m Ao Diam: 3.3 cm (2.0 - 3.7) AV Cusp: 2.0 cm (1.5 - 2.6) MV EXCURSION: 13.341 mm (> 18.000) MV EF SLOPE: 95 mm/s (70 - 150) EPSS: 0.5 cm MV E Kings: 0.92 m/s MV DecT: 181 ms MV A Kings: 0.86 m/s MV E/A Ratio: 1.07 RAP: 5.00 mmHg RVSP: 30.35 mmHg FINDINGS -------- Sinus rhythm. This was a technically good study. The left ventricular size is normal. Left ventricular wall thickness is normal. Overall left vent ricular systolic function is normal with, an EF between 60 - 65 %. The right ventricle is normal in size. Normal LA size by volume 22+/-6 ml/m2. The right atrium is normal in size. Interatrial and interventricular septum intact. The aortic valve is trileaflet and appears structurally normal. The mitral valve is normal. Mild tricuspid regurgitation present. Right ventricular systolic pressure is normal at < 35 mmHg. Trace/mild (physiologic) pulmonic regurgitation. The aortic root size is normal. Normal inferior vena cava with normal inspiratory collapse consistent with estimated right atrial pre ssure of 5 mmHg. There is no pericardial effusion. CONCLUSIONS -------- 1. The left ventricular size is normal. 2. Left ventricular wall thickness is normal. 3. Overall left ventricular systolic function is normal with, an EF between 60 - 65 %. 4. Mild tricuspid regurgitation present. 5. Trace/mild (physiologic) pulmonic regurgitation. 6. There is no pericardial effusion. TELEVISION STATION MANAGER: Danita Villeda RDCS
== END | disposition home or self-care (01) ==
LOC: RADECHMAIN 11:55
PROVIDERS: ATTEND Family Medicine
DX: I08.8 Other rheumatic multiple valve diseases (principal)
CPT/HCPCS: 93306

== ENCOUNTER → 2020-10-08 | Outpatient (CLI) | payer MEDICARE ==
--- NOTE | 2020-10-08 18:19 | US ---
EXAMINATION TYPE: US venous doppler duplex LE RT DATE OF EXAM: 10/08/2020 6:12 PM COMPARISON: NONE CLINICAL HISTORY: M25.561 pain in right knee. Pain x couple weeks. No hx of DVT. Patient does not jamal e blood thinner. SIDE PERFORMED: Right TECHNIQUE: The lower extremity deep venous system is examined utilizing real time linear array sonog shreyas with graded compression, doppler sonography and color-flow sonography. VESSELS IMAGED: Common Femoral Vein Deep Femoral Vein Greater Saphenous Vein * Femoral Vein Popliteal Vein Small Saphenous Vein * Proximal Calf Veins (* superficial vessels) Right Leg: No evidence of DVT in veins imaged at this time within the right leg. Limited due to kelsey a and patient body habitus. IMPRESSION: No sign of deep vein thrombosis in the right leg.
== END | disposition home or self-care (01) ==
LOC: RADUSWWP 17:01
PROVIDERS: ATTEND Orthopaedic Surgery
DX: I80.3 Phlebitis and thrombophlebitis of lower extremities, unspecified (principal)

== ENCOUNTER → 2020-11-01 | Outpatient (CLI) | payer MEDICARE ==
--- NOTE | 2020-11-01 13:15 | MR ---
EXAMINATION TYPE: MR knee RT wo con DATE OF EXAM: 11/01/2020 COMPARISON: None. HISTORY: Right knee pain x 1 month, no trauma TECHNIQUE: Multiplanar, multisequence imaging of the right knee is performed without IV contrast. FINDINGS: Exam slightly suboptimal secondary to patient's large body habitus. MEDIAL MENISCUS: Anterior and posterior horns are intact without tear. LATERAL MENISCUS: Anterior and posterior horns are intact without tear. CRUCIATE LIGAMENTS: The anterior and posterior cruciate ligaments are intact and unremarkable. COLLATERAL LIGAMENTS: The medial collateral ligament and lateral collateral ligament complex are inta ct and unremarkable. EXTENSOR MECHANISM: Visualized quadriceps and patellar tendons are intact. EFFUSION: Moderate size suprapatellar joint effusion. POPLITEAL CYST: No popliteal/claire cyst. TRICOMPARTMENT SPACES: Mild to moderate tricompartment joint space loss without significant spurring. CARTILAGE: Cartilaginous loss medial and lateral tibiofemoral compartments. No significant chondromal acia patella. BONE MARROW SIGNAL: No focal abnormal marrow signal is appreciated. OTHER: Extensive subcutaneous edema anterior prepatellar and superficial infrapatellar space. IMPRESSION: 1. No meniscal or ligamentous tear is seen. 2. Mild to moderate tricompartment degenerative changes as detailed above. 3. Moderate-sized suprapatellar joint effusion.
== END | disposition home or self-care (01) ==
LOC: RADMRIMAIN 11:27
PROVIDERS: ATTEND Orthopaedic Surgery
DX: M17.11 Unilateral primary osteoarthritis, right knee (principal)

== ENCOUNTER → 2020-12-19 | Outpatient (CLI) | payer MEDICARE ==
[2020-12-19 15:22] LABS: Appearance,Urine Clear (Clear); Bilirubin,Urine Negative (Negative); Blood,Urine Negative (Negative); Color,Urine Light Yellow; Glucose,Urine (UA) Negative (Negative); Ketones,Urine Negative (Negative); Leukocyte Esterase,Urine Negative (Negative); Nitrite,Urine Negative (Negative); Protein,Urine Negative (Negative); Specific Gravity,Urine 1.004 (1.001-1.035); Urobilinogen,Urine <2.0 mg/dL (<2.0)
[2020-12-19 23:58] LABS: HCT 43.3 % (37.2-46.3); HGB 14.3 g/dL (12.0-15.0); MCH 29.8 pg (27.0-32.0); MCV 90.2 fL (80.0-97.0); Platelet Count 139 X 10*3/uL (140-440); RDW 14.5 % (11.5-14.5); WBC 11.61 X 10*3/uL (4.50-10.00)
[2020-12-20 01:19] LABS: Basophils # (M) 0 X 10*3/uL (0.00-0.10); Eosinophils # (M) 1.63 X 10*3/uL (0.04-0.35); Lymphocytes # (M) 6.27 X 10*3/uL (0.90-5.00); Neutrophils # (M) 3.02 X 10*3/uL (2.00-8.90); Neutrophils % (M) 26 %
[2020-12-20 17:13] LABS: African American GFR (CKD) 82.8 (60.0-200.0); Albumin 4.5 g/dL (3.80-4.90); Albumin/Globulin Ratio 1.96 (1.60-3.17); Anion Gap 11.3 mmol/L (4.00-12.00); BUN/Creat Ratio 16.67 Ratio (12.00-20.00); Calcium 9.5 mg/dL (8.7-10.3); Carbon Dioxide 22.7 mmol/L (21.6-31.8); Globulin 2.3 g/dL (1.6-3.3); Non-African American GFR(CKD) 71.5 (60.0-200.0); Potassium 4.7 mmol/L (3.5-5.5); Total Bilirubin 0.4 mg/dL (0.2-1.2); Total Protein 6.8 g/dL (6.2-8.2)
== END | disposition home or self-care (01) ==
LOC: LABWHC1 14:34
PROVIDERS: ATTEND Family Medicine
DX: Z01.812 Encounter for preprocedural laboratory examination (principal)
CPT/HCPCS: 36415; 80053; 81003; 84443; 85025

== ENCOUNTER 2021-02-18 14:27 | Emergency (ER) | payer MEDICARE ==
[2021-02-18] MEDS ORDERED: SODIUM CHLORIDE 0.9% 1,000 ML IV STA (15:54)
--- NOTE | 2021-02-18 16:31 | ED ---
General Adult HPI - General Source: patient, RN notes reviewed Mode of arrival: wheelchair Limitations: no limitations <Nishant Messina - Last Filed: 02/18/21 19:44> <Citlaly Ramsay - Last Filed: 02/19/21 12:46> - General Chief complaint: Shortness of Breath Stated complaint: SOB Time Seen by Provider: 02/18/21 15:50 - History of Present Illness Initial comments: Patient is a 55-year-old female that presents to emergency department complaining of increased shortness of breath for the last 2 days.. She notes that there is a rumble in her chest. She notes that she does have a history of bilateral pneumonia and this episode feels very similar to that one. She was in no apparent distress or pain while sitting up in bed during exam and interview. She did note that she's had recent knee surgery so is hard for removed. She notes that she does smoke approximately half a pack to one pack of cigarettes per day. She denied any chest pain headache nausea vomiting diarrhea constipation fever fatigue chills. (Nishant Messina) - Related Data Home Medications Medication Instructions Recorded Confirmed Ascorbic Acid [Vitamin C] 1,000 mg PO DAILY 03/22/20 02/18/21 Atorvastatin [Lipitor] 20 mg PO DAILY 03/22/20 02/18/21 DULoxetine HCL [Cymbalta] 60 mg PO DAILY 03/22/20 02/18/21 Doxylamine Succinate [Unisom] 50 mg PO HS 03/22/20 02/18/21 Hydroxychloroquine Sulfate 200 mg PO DAILY 03/22/20 02/18/21 [Plaquenil] Ketorolac [Toradol] 10 mg PO BID PRN 03/22/20 02/18/21 Levothyroxine Sodium [Synthroid] 100 mcg PO DAILY 03/22/20 02/18/21 Magnesium 250 mg PO DAILY 03/22/20 02/18/21 Morphine Sulfate [Ms Contin] 30 mg PO Q12HR 03/22/20 02/18/21 Multivitamins, Thera [Multivitamin 1 tab PO HS 03/22/20 02/18/21 (formulary)] Oxymetazoline 0.05% Nasl [place] 2 spray EA NOSTRIL BID PRN 03/22/20 02/18/21 [Afrin 0.05% Nasal [place]] Vitamin B Complex 1 each PO DAILY 03/22/20 02/18/21 oxyCODONE HCL [OxyCONTIN] 10 mg PO Q12H 03/22/20 02/18/21 [place] [[place]] 5 mg PO TID 02/18/21 02/18/21 Pregabalin [Lyrica] 150 mg PO TID 02/18/21 02/18/21 Previous Rx's Medication Instructions Recorded Metoprolol Succinate (ER) [Toprol 50 mg PO DAILY #30 tab 03/28/20 XL] Albuterol Inhaler [Ventolin Hfa 2 puff INHALATION RT-QID #1 inhaler 02/18/21 Inhaler] Doxycycline Hyclate 100 mg PO BID #10 tab 02/18/21 Allergies Allergy/AdvReac Type Severity Reaction Status Date / Time Androgenic Anabolic Steroid AdvReac Unknown Verified 02/18/21 16:52 Antihistamines - Alkylamine AdvReac Unknown Verified 02/18/21 16:52 Review of Systems ROS Other: All systems not noted in ROS Statement are negative. <Nishant Messina - Last Filed: 02/18/21 19:44> ROS Other: All systems not noted in ROS Statement are negative. <Citlaly Ramsay - Last Filed: 02/19/21 12:46> ROS Statement: Those systems with pertinent positive or pertinent negative responses have been documented in the HPI. Past Medical History Past Medical History: Fibromyalgia, Osteoarthritis (OA), Pneumonia, Thyroid Disorder Additional Past Medical History / Comment(s): migraines, "racing" heart rate, varicose veins, ulcer, lupus, sjogrens, thrombocytopeia, sinus issues History of Any Multi-Drug Resistant Organisms: None Reported Past Surgical History: Back Surgery, Hysterectomy, Tonsillectomy Additional Past Surgical History / Comment(s): spleenectomy, laparaoscy, alon cataracts with lens implants, cervical fusion x 2, lumbar fusion, alon carpal tunnel, rt leg "ablation" for a leak in a vein, Past Anesthesia/Blood Transfusion Reactions: No Reported Reaction Past Psychological History: No Psychological Hx Reported Past Alcohol Use History: Rare Past Drug Use History: None Reported - Past Family History Mother Family Medical History: Cancer Additional Family Medical History / Comment(s): colon <Nishant Messina - Last Filed: 02/18/21 19:44> General Exam Limitations: no limitations General appearance: alert, in no apparent distress, obese Head exam: Present: atraumatic, normocephalic, normal inspection Eye exam: Present: normal appearance, PERRL, EOMI. Absent: scleral icterus, conjunctival injection, periorbital swelling Neck exam: Present: normal inspection. Absent: tenderness, meningismus, lymphadenopathy Respiratory exam: Present: rhonchi (Bilaterally in the middle lower lobes). Absent: normal lung sounds bilaterally, respiratory distress, wheezes, rales, stridor Cardiovascular Exam: Present: regular rate, normal rhythm, normal heart sounds. Absent: systolic murmur, diastolic murmur, rubs, gallop, clicks GI/Abdominal exam: Present: soft, normal bowel sounds. Absent: distended, tende rness, guarding, rebound, rigid Extremities exam: Present: normal inspection, full ROM, normal capillary refill. Absent: tenderness, pedal edema, joint swelling, calf tenderness Neurological exam: Present: alert, oriented X3, CN II-XII intact Psychiatric exam: Present: normal affect, normal mood Skin exam: Present: warm, dry, intact, normal color. Absent: rash <Nishant Messina - Last Filed: 02/18/21 19:44> Course Vital Signs 02/18/21 02/18/21 02/18/21 14:34 17:37 20:51 Temperature 97.8 F Pulse Rate 81 74 75 Respiratory 18 18 16 Rate Blood Pressure 140/86 113/96 137/81 O2 Sat by Pulse 97 98 96 Oximetry 02/18/21 22:18 Temperature 97.5 F L Pulse Rate 75 Respiratory 18 Rate Blood Pressure 132/82 O2 Sat by Pulse 95 Oximetry EKG Findings - EKG Comments: EKG Findings:: Ventricular rate 75 bpm, [place] interval 112 ms, QRS duration 96 ms, QT/QTC 384/428 ms, PRT axes 48/74/45. Normal sinus rhythm, normal ECG. <Nishant Messina - Last Filed: 02/18/21 19:44> Medical Decision Making - Lab Data Result diagrams: 02/18/21 16:13 02/18/21 16:13 - EKG Data -: EKG Interpreted by Ca EKG shows normal: sinus rhythm Rate: normal - Radiology Data Radiology results: report reviewed, image reviewed <Nishant Messina - Last Filed: 02/18/21 19:44> - Lab Data Result diagrams: 02/18/21 16:13 02/18/21 16:13 <Citlaly Ramsay - Last Filed: 02/19/21 12:46> - Medical Decision Making 55 she'll female complaining of increased shortness of breath over the last 2 days. Labs, EKG, chest x-ray, bus driver/monitor, 1 L normal saline ordered. Labs: D-dimer elevated at 0.8. Rest of labs unremarkable. CT chest angiogram to rule out pulmonary embolus ordered. Case discussed with Dr. Ramsay (Nishant Messina) Patient was evaluated by myself. Patient presents with shortness of breath for a month which has worsened over the past couple of days. Laboratory studies are reviewed. Elevated d-dimer therefore patient was sent for CT of her chest. CT demonstrates a small pulmonary nodule for which this is related to the patient that she will need to follow with her primary care doctor for further evaluation and repeat imaging. He ate given a prescription for an inhaler and doxycycline. Also recommended treatment with the steroid pack however the patient refused. Instructed that she should stop taking aspirin, continue using her Flonase and take an antihistamine daily. Return to the emergency room for any new or worsening symptoms. Patient agreed to this was discharged in stable condition (Citlaly Ramsay) - Lab Data Lab Results 02/18/21 02/18/21 02/18/21 Range/Units 16:13 16:13 16:13 WBC 11.8 H (3.8-10.6) k/uL RBC 4.95 (3.80-5.40) m/uL Hgb 14.5 (11.4-16.0) gm/dL Hct 45.0 (34.0-46.0) % MCV 90.9 (80.0-100.0) fL MCH 29.4 (25.0-35.0) pg MCHC 32.3 (31.0-37.0) g/dL RDW 13.8 (11.5-15.5) % Plt Count 62 L (150-450) k/uL MPV 10.8 Neutrophils % 34 % Lymphocytes % 47 % Monocytes % 7 % Eosinophils % 7 % Basophils % 1 % Neutrophils # 4.0 (1.3-7.7) k/uL Lymphocytes # 5.5 H (1.0-4.8) k/uL Monocytes # 0.8 (0-1.0) k/uL Eosinophils # 0.8 H (0-0.7) k/uL Basophils # 0.2 (0-0.2) k/uL Manual Slide Review Performed Large Platelets Present PT 9.7 (9.0-12.0) sec INR 0.9 (<1.2) APTT 24.2 (22.0-30.0) sec D-Dimer 0.81 H (<0.60) mg/L FEU Sodium 138 (137-145) mmol/L Potassium 4.3 (3.5-5.1) mmol/L Chloride 106 (98-107) mmol/L Carbon Dioxide 24 (22-30) mmol/L Anion Gap 8 mmol/L BUN 15 (7-17) mg/dL Creatinine 0.77 (0.52-1.04) mg/dL Est GFR (CKD-EPI)AfAm >90 (>60 ml/min/1.73 sqM) Est GFR (CKD-EPI)NonAf 87 (>60 ml/min/1.73 sqM) Glucose 85 (74-99) mg/dL Plasma Lactic Acid Tani (0.7-2.0) mmol/L Calcium 9.5 (8.4-10.2) mg/dL Total Bilirubin 0.7 (0.2-1.3) mg/dL AST 44 H (14-36) U/L ALT 30 (4-34) U/L Alkaline Phosphatase 123 (38-126) U/L Troponin I (0.000-0.034) ng/mL Total Protein 7.5 (6.3-8.2) g/dL Albumin 4.5 (3.5-5.0) g/dL 02/18/21 02/18/21 Range/Units 16:13 16:13 WBC (3.8-10.6) k/uL RBC (3.80-5.40) m/uL Hgb (11.4-16.0) gm/dL Hct (34.0-46.0) % MCV (80.0-100.0) fL MCH (25.0-35.0) pg MCHC (31.0-37.0) g/dL RDW (11.5-15.5) % Plt Count (150-450) k/uL MPV Neutrophils % % Lymphocytes % % Monocytes % % Eosinophils % % Basophils % % Neutrophils # (1.3-7.7) k/uL Lymphocytes # (1.0-4.8) k/uL Monocytes # (0-1.0) k/uL Eosinophils # (0-0.7) k/uL Basophils # (0-0.2) k/uL Manual Slide Review Large Platelets PT (9.0-12.0) sec INR (<1.2) APTT (22.0-30.0) sec D-Dimer (<0.60) mg/L FEU Sodium (137-145) mmol/L Potassium (3.5-5.1) mmol/L Chloride (98-107) mmol/L Carbon Dioxide (22-30) mmol/L Anion Gap mmol/L BUN (7-17) mg/dL Creatinine (0.52-1.04) mg/dL Est GFR (CKD-EPI)AfAm (>60 ml/min/1.73 sqM) Est GFR (CKD-EPI)NonAf (>60 ml/min/1.73 sqM) Glucose (74-99) mg/dL Plasma Lactic Acid Tani 0.7 (0.7-2.0) mmol/L Calcium (8.4-10.2) mg/dL Total Bilirubin (0.2-1.3) mg/dL AST (14-36) U/L ALT (4-34) U/L Alkaline Phosphatase (38-126) U/L Troponin I <0.012 (0.000-0.034) ng/mL Total Protein (6.3-8.2) g/dL Albumin (3.5-5.0) g/dL - EKG Data EKG Comments: Ventricular rate 75 bpm, [place] interval 112 ms, QRS duration 96 ms, QT/QTC 384/428 ms, PRT axes 48/74/45. Normal sinus rhythm, normal ECG (Nishant Messina) - Radiology Data Chest x-ray: Slightly of the hemidiaphragms may represent and then some medicines change. Otherwise no acute cardiopulmonary process (Messina,Nishant) Disposition <Nishant Messina - Last Filed: 02/18/21 19:44> Is patient prescribed a controlled substance at d/c from ED?: No Time of Disposition: 21:49 <Maggie Ramsayah Silvina - Last Filed: 02/19/21 12:46> Clinical Impression: Cough, Bronchospasm, Pulmonary nodule Disposition: HOME SELF-CARE Condition: Stable Instructions (If sedation given, give patient instructions): Acute Bronchitis (ED) Additional Instructions: Please follow up with your primary care doctor in 2-4 days. They need to follow you for you 4 mm pulmonary nodule. Use the inhaler every 4 hours. Take the antibiotic as directed. Return to the ED for any new or worsening symptoms. Prescriptions: Doxycycline Hyclate 100 mg PO BID #10 tab Albuterol Inhaler [Ventolin Hfa Inhaler] 2 puff INHALATION RT-QID #1 inhaler Referrals: Gricelda Murdock MD [Primary Care Provider] - 1-2 days
[2021-02-18 16:38] LABS: Basophils # (A) 0.2 k/uL (0-0.2); Basophils % (A) 1 %; Eosinophils # (A) 0.8 k/uL (0-0.7); Eosinophils % (A) 7 %; HGB 14.5 gm/dL (11.4-16.0); Lymphocytes # (A) 5.5 k/uL (1.0-4.8); Lymphocytes % (A) 47 %; MCH 29.4 pg (25.0-35.0); MCHC 32.3 g/dL (31.0-37.0); MCV 90.9 fL (80.0-100.0); Mean Platelet Volume 10.8; Monocytes # (A) 0.8 k/uL (0-1.0); Monocytes % (A) 7 %; Neutrophils % (A) 34 %; RBC 4.95 m/uL (3.80-5.40); RDW 13.8 % (11.5-15.5); WBC 11.8 k/uL (3.8-10.6)
[2021-02-18 16:45] LABS: ALT 30 U/L (4-34); AST 44 U/L (14-36); African American GFR (CKD) >90 (>60 ml/min/1.73 sqM); Albumin 4.5 g/dL (3.5-5.0); Alkaline Phosphatase 123 U/L (38-126); Anion Gap 8 mmol/L; Blood Urea Nitrogen 15 mg/dL (7-17); Calcium 9.5 mg/dL (8.4-10.2); Carbon Dioxide 24 mmol/L (22-30); Chloride 106 mmol/L (98-107); Glucose 85 mg/dL (74-99); Non-African American GFR(CKD) 87 (>60 ml/min/1.73 sqM); Potassium 4.3 mmol/L (3.5-5.1); Sodium 138 mmol/L (137-145); Total Bilirubin 0.7 mg/dL (0.2-1.3); Total Protein 7.5 g/dL (6.3-8.2)
--- NOTE | 2021-02-18 17:01 | XR ---
EXAMINATION TYPE: XR chest 2V DATE OF EXAM: 02/18/2021 CLINICAL HISTORY: difficulty breathing. TECHNIQUE: Frontal and lateral view of the chest. COMPARISON: None FINDINGS: There is some flattening of the hemidiaphragms. The cardiomediastinal silhouette is within normal limits for size. Pulmonary vasculature is normal. There is no focal air space opacity. No pl eural effusion. No pneumothorax seen. Degenerative changes of the spine. IMPRESSION: Flattening of the hemidiaphragms may represent emphysematous change. Otherwise no acute cardiopulmona ry process.
[2021-02-18 17:08] LABS: INR 0.9 (<1.2)
[2021-02-18 17:09] LABS: Partial Thromboplastin Time 24.2 sec (22.0-30.0); Prothrombin Time 9.7 sec (9.0-12.0)
[2021-02-18 17:19] LABS: Platelet Count 62 k/uL (150-450)
[2021-02-18 17:21] LABS: Large Platelets Present
[2021-02-18 17:36] LABS: D-Dimer 0.81 mg/L FEU (<0.60)
--- NOTE | 2021-02-18 20:31 | CT ---
EXAMINATION TYPE: CT chest angio for PE DATE OF EXAM: 02/18/2021 COMPARISON: Same day radiographs. HISTORY: Elevated DDimer CT DLP: 504.1 mGycm Automated exposure control for dose reduction was used. CONTRAST: CT Chest for pulmonary embolism performed with with IV Contrast, patient injected with 100 mL of Isov ue 370. FINDINGS: LUNGS: The lungs are grossly clear, there is no significant infiltrate. There is no pleural effusio n or pneumothorax seen. The tracheobronchial tree is patent. There is a 4 mm left upper lobe nodule. MEDIASTINUM: There is satisfactory enhancement of the pulmonary artery and its branches, there is no CT evidence for pulmonary embolism. There are no greater than 1 cm hilar or mediastinal lymph nodes. No pericardial effusion is seen. OTHER: No additional significant abnormality is seen. IMPRESSION: No acute PE or other cardiopulmonary abnormality. Nonspecific 4 mm left upper lobe nodule. Recommend follow-up in 3-6 months.
[2021-02-18 20:53] VITALS: PULSE 75
[2021-02-18] MEDS ORDERED: DOXYCYCLINE 100 MG CAP PO STA (21:46)
[2021-02-18 22:21] VITALS: BP 132/82; RESP 18; TEMP 97.5
== END 2021-02-18 22:18 | disposition home or self-care (01) ==
LOC: EC 14:27
DX: J98.01 Acute bronchospasm (principal); R91.1 Solitary pulmonary nodule; M19.90 Unspecified osteoarthritis, unspecified site; M79.7 Fibromyalgia; F17.210 Nicotine dependence, cigarettes, uncomplicated; Z79.1 Long term (current) use of non-steroidal anti-inflammatories (NSAID); Z79.899 Other long term (current) drug therapy
CPT/HCPCS: 36415; 93005; 85379; 80053; 83605; 84484; 85025; 85610; 85730; 71046; 71275; 99285; Q9967

== ENCOUNTER → 2021-10-14 | Outpatient (CLI) | payer MEDICARE ==
--- NOTE | 2021-10-14 15:40 | MR ---
EXAMINATION TYPE: MR lumbar spine wo con DATE OF EXAM: 10/14/2021 COMPARISON: None HISTORY: Spondylosis, radiculopathy, lumbar pain CONTRAST: 0 mL intravenous Gadavist. TECHNIQUE: Multiplanar, multisequence images of the lumbar spine were acquired. FINDINGS: Postsurgical changes from pedicle screws are present L5-S1. Some magnetic susceptibility a rtifact is evident. L5-S1: No significant disc bulge or disc herniation. Some disc space narrowing is present. No forami nal stenosis. Laminectomy has been performed. No obvious spinal canal stenosis. L4-L5: No significant disc bulge or disc herniation. No spinal canal stenosis. No foraminal stenosi s. L3-L4: No significant disc bulge or disc herniation. No spinal canal stenosis. No foraminal stenosi s. L2-L3: No significant disc bulge or disc herniation. No spinal canal stenosis. No foraminal stenosi s. L1-L2: No significant disc bulge or disc herniation. No spinal canal stenosis. No foraminal stenosi s. T12-L1: No significant disc bulge or disc herniation. No spinal canal stenosis. No foraminal stenos is. IMPRESSION: 1. No suspicious spinal canal stenosis or significant disc bulge in the postsurgical lumbar spine
== END | disposition home or self-care (01) ==
LOC: RADMRIMAIN 11:55
PROVIDERS: ATTEND Psychiatry & Neurology Neurology
DX: M51.16 Intervertebral disc disorders with radiculopathy, lumbar region (principal); Z98.890 Other specified postprocedural states
CPT/HCPCS: 72148

== ENCOUNTER → 2022-02-05 | Outpatient (CLI) | payer MEDICARE ==
[2022-02-05 19:10] LABS: ALT 25 U/L (8-44); AST 33 U/L (13-35); African American GFR (CKD) 82.3 (60.0-200.0); Albumin 4.2 g/dL (3.8-4.9); Albumin/Globulin Ratio 1.45 (1.60-3.17); Alkaline Phosphatase 103 U/L (41-126); BUN/Creat Ratio 23.11 Ratio (12.00-20.00); Blood Urea Nitrogen 20.8 mg/dL (9.0-27.0); Calcium 9.5 mg/dL (8.7-10.3); Carbon Dioxide 22.2 mmol/L (20.0-27.5); Chloride 103 mmol/L (96-109); Chol/HDL Ratio 3.71 Ratio; Globulin 2.9 g/dL (1.6-3.3); Glucose 109 mg/dL (70-110); LDL Cholesterol,Calculated 96.4 mg/dL (0.0-131.0); Potassium 4.8 mmol/L (3.5-5.5); Sodium 136 mmol/L (135-145); Total Protein 7.1 g/dL (6.2-8.2)
[2022-02-05 19:19] LABS: Basophils # (A) 0.13 X 10*3/uL (0.00-0.10); Basophils % (A) 1.3 %; Eosinophils # (A) 0.87 X 10*3/uL (0.04-0.35); Eosinophils % (A) 8.9 %; HCT 46.9 % (37.2-46.3); HGB 14.9 g/dL (12.0-15.0); Immature Grans, Automated 0.2 %; Lymphocytes # (A) 4.38 X 10*3/uL (0.90-5.00); MCH 29.6 pg (27.0-32.0); MCHC 31.8 g/dL (32.0-37.0); MCV 93.2 fL (80.0-97.0); Mean Platelet Volume 13.3 fL (9.5-12.2); Monocytes # (A) 0.94 X 10*3/uL (0.20-1.00); Monocytes % (A) 9.7 %; NRBC Per 100 WBC 0 /100 WBCS (0.0-0.0); Neutrophils % (A) 34.9 %; Platelet Count 173 X 10*3/uL (140-440); RBC 5.03 X 10*6/uL (4.10-5.20); RDW 14.4 % (11.5-14.5); WBC 9.74 X 10*3/uL (4.50-10.00)
== END | disposition home or self-care (01) ==
LOC: LABWHC1 11:20
PROVIDERS: ATTEND Family Medicine
DX: E03.9 Hypothyroidism, unspecified (principal); E78.5 Hyperlipidemia, unspecified
CPT/HCPCS: 36415; 80053; 80061; 84439; 84443; 85025

== ENCOUNTER → 2023-01-27 | Outpatient (CLI) | payer MEDICARE ==
--- NOTE | 2023-01-27 16:14 | XR ---
EXAMINATION TYPE: XR chest 2V DATE OF EXAM: 01/27/2023 COMPARISON: 02/18/2021 HISTORY: Shortness of breath TECHNIQUE: Frontal and lateral views of the chest are obtained. FINDINGS: Scattered senescent parenchymal changes noted. Hyperinflation compatible with COPD. No evidence for infiltrate. No evidence for atelectasis. Heart size is stable. Mediastinal structures are stable and grossly unremarkable. No evidence for hilar prominence. Degenerative changes dorsal spine. IMPRESSION: 1. No evidence for acute pulmonary disease.
== END | disposition home or self-care (01) ==
LOC: RADXRMAIN 15:53
PROVIDERS: ATTEND Family Medicine
DX: R07.9 Chest pain, unspecified (principal)
CPT/HCPCS: 71046

== ENCOUNTER 2023-02-10 14:36 | Inpatient (IN) | payer MEDICARE ==
[2023-02-10] MEDS ORDERED: SODIUM CHLORIDE 0.9% 1,000 ML IV STA (15:10)
[2023-02-10] MEDS ORDERED: IPRATROPIUM-ALBUTEROL 3 ML NEB INHALATION STA ×2 (15:10→16:50)
[2023-02-10] MEDS ORDERED: methylPREDNISolone SOD SUCCI 125 MG/2 ML VIAL IV STA (15:10)
--- NOTE | 2023-02-10 15:26 | ED ---
SOB HPI - General Chief Complaint: Shortness of Breath Stated Complaint: INOCENCIO Time Seen by Provider: 02/10/23 15:09 Source: patient, RN notes reviewed, old records reviewed Mode of arrival: wheelchair Limitations: no limitations - History of Present Illness Initial Comments: This is a 49-year-old female to the emergency department for evaluation brought in by her son for evaluation of severe shortness of breath and inability are unable to perform any tests without significant shortness of breath and resting. Patient has a history of daily smoking patient states it's of a cigarette without having severe shortness of breath and coughing. No fevers some occasional chest pain no travel history or sick contacts. Denies exposure to coronavirus. Patient has never had coronavirus. MD Complaint: shortness of breath, cough Severity: moderate Severity scale (1-10): 4 Quality: dull Improves With: nothing Worsens With: nothing Known History Of: COPD Context: recent URI Associated Symptoms: denies other symptoms Treatments Prior to Arrival: none - Related Data Home Medications Medication Instructions Recorded Confirmed Ascorbic Acid [Vitamin C] 1,000 mg PO DAILY 03/22/20 02/10/23 Atorvastatin [Lipitor] 20 mg PO DAILY 03/22/20 02/10/23 DULoxetine HCL [Cymbalta] 60 mg PO DAILY 03/22/20 02/10/23 Doxylamine Succinate [Unisom] 50 mg PO HS 03/22/20 02/10/23 Hydroxychloroquine Sulfate 200 mg PO BID 03/22/20 02/10/23 [Plaquenil] Levothyroxine Sodium [Synthroid] 100 mcg PO DAILY 03/22/20 02/10/23 Magnesium 250 mg PO DAILY 03/22/20 02/10/23 Morphine Sulfate [Ms Contin] 30 mg PO BID 03/22/20 02/10/23 Vitamin B Complex 1 cap PO DAILY 03/22/20 02/10/23 oxyCODONE HCL [OxyCONTIN] 10 mg PO Q12H 03/22/20 02/10/23 Pregabalin [Lyrica] 150 mg PO TID 02/18/21 02/10/23 Albuterol Inhaler [Ventolin Hfa 2 puff INHALATION RT-QID PRN 02/10/23 02/10/23 Inhaler] Multivit-Min/Iron/Folic/Lutein 1 tab PO HS 02/10/23 02/10/23 [Centrum Silver Women Tablet] Previous Rx's Medication Instructions Recorded Metoprolol Succinate (ER) [Toprol 50 mg PO DAILY #30 tab 03/28/20 XL] Allergies Allergy/AdvReac Type Severity Reaction Status Date / Time Androgenic Anabolic Steroid AdvReac Unknown Verified 02/10/23 17:01 Antihistamines - Alkylamine AdvReac Unknown Verified 02/10/23 17:01 Review of Systems ROS Statement: Those systems with pertinent positive or pertinent negative responses have been documented in the HPI. ROS Other: All systems not noted in ROS Statement are negative. Past Medical History Past Medical History: Fibromyalgia, Osteoarthritis (OA), Pneumonia, Thyroid Disorder Additional Past Medical History / Comment(s): migraines, "racing" heart rate, varicose veins, ulcer, lupus, sjogrens, thrombocytopeia, sinus issues History of Any Multi-Drug Resistant Organisms: None Reported Past Surgical History: Back Surgery, Hysterectomy, Tonsillectomy Additional Past Surgical History / Comment(s): spleenectomy, laparaoscy, alon cataracts with lens implants, cervical fusion x 2, lumbar fusion, alon carpal tunnel, rt leg "ablation" for a leak in a vein, Past Anesthesia/Blood Transfusion Reactions: No Reported Reaction Past Psychological History: No Psychological Hx Reported Smoking Status: Current every day smoker Past Alcohol Use History: Rare Past Drug Use History: None Reported - Past Family History Mother Family Medical History: Cancer Additional Family Medical History / Comment(s): colon General Exam Limitations: no limitations General appearance: alert, anxious, in distress Head exam: Present: atraumatic, normocephalic, normal inspection Eye exam: Present: normal appearance, PERRL, EOMI. Absent: scleral icterus, conjunctival injection, periorbital swelling ENT exam: Present: normal exam, mucous membranes moist Neck exam: Present: normal inspection. Absent: tenderness, meningismus, lymphadenopathy Respiratory exam: Present: respiratory distress, wheezes. Absent: rales, rhonchi, stridor Cardiovascular Exam: Present: normal rhythm, tachycardia, normal heart sounds. Absent: systolic murmur, diastolic murmur, rubs, gallop, clicks GI/Abdominal exam: Present: soft, normal bowel sounds. Absent: distended, tenderness, guarding, rebound, rigid Extremities exam: Present: normal inspection, full ROM, normal capillary refill. Absent: tenderness, pedal edema, joint swelling, calf tenderness Back exam: Present: normal inspection Neurological exam: Present: alert, oriented X3, CN II-XII intact Psychiatric exam: Present: normal affect, normal mood Skin exam: Present: warm, dry, intact, normal color. Absent: rash Course Vital Signs 02/10/23 02/10/23 02/10/23 14:41 15:30 15:47 Temperature 98.5 F Pulse Rate 105 H 103 H 106 H Respiratory 28 H Rate Blood Pressure 136/71 O2 Sat by Pulse 85 L Oximetry 02/10/23 02/10/23 16:50 18:21 Temperature 98.4 F Pulse Rate 100 82 Respiratory 22 19 Rate Blood Pressure 118/80 121/84 O2 Sat by Pulse 92 L 92 L Oximetry - Reevaluation(s) Reevaluation #1: 02/10/23 18:52 Medical record is reviewed Reevaluation #2: 02/10/23 18:52 Patient symptoms are not improved here in the ER, mildly improved with supplemental O2 Reevaluation #3: 02/10/23 18:52 Patient informed results and questions are answered Reevaluation #4: 02/10/23 18:53 Was pt. sent in by a medical professional or institution? @ -no Did you speak to anyone other than the patient for history? @ -no Did you review nursing and triage notes? @ -agree Were old charts reviewed? @ -no Differential Diagnosis? @ -dyspnea EKG interpreted by me (3pts min.)? @ -yes X-rays interpreted by me (1pt min.)? @ -yes CT interpreted by me (1pt min.)? @ -no U/S interpreted by me (1pt. min.)? @ -no What testing was considered but not performed? (CT, X-rays, U/S, labs)? Why? @ -no What meds were considered but not given? Why? @ -no Did you discuss the management of the patient with other professionals? @ -no Did you reconcile home meds? @ -yes Was smoking cessation discussed for >3mins.? @ -no Was critical care preformed (if so, how long)? @ -yes Were there social determinants of health that impacted care today? How? (Ho melessness, low income, unemployed, alcoholism, drug addiction, transportation, low edu. Level, literacy, decrease access to med. care, retirement, rehab)? @ -no Was there de-escalation of care discussed even if they declined? (Discuss DNR or withdrawal of care, Hospice)? @ -no What co-morbidities impacted this encounter? (DM, HTN, Smoking, COPD, CAD, Cancer, CVA,, sleep apnea, morbid obesity) @ -no Was patient admitted / discharged? @ -admit Undiagnosed new problem with uncertain prognosis? @ -no Drug Therapy requiring intensive monitoring for toxicity (Heparin, Nitro, Insulin, Cardizem)? @ -no Were any procedures done? @ -no Diagnosis/symptom? @ -pna,copd,hypoxia Acute, or Chronic, or Acute on Chronic? @ -acute Uncomplicated (without systemic symptoms) or Complicated (systemic symptoms)? @ -complicated Side effects of treatment? @ -no Exacerbation, Progression, or Severe Exacerbation] @ -no Poses a threat to life or bodily function? @ -yes Reevaluation #5: 02/10/23 18:53 Differential Dyspnea: Coronary syndrome, arrhythmia, tamponade, asthma, COPD, pulmonary embolism, pneumonia, pneumothorax, pulmonary effusion, anaphylaxis, diabetic ketoacidosis, flailed chest, pulmonary contusion, diaphragmatic rupture, anemia, neuromuscular , this is not meant to be an all-inclusive list. - Consultations Consultation #1: Spoke with admitting physicians who agree to admit this patient Medical Decision Making - Medical Decision Making 67 female DF for evaluation. Patient does have pneumonia, severe COPD undiagnosed, shortness of breath hypoxia here in the ER, negative for coronavirus. Patient be admitted for pulmonary consultation and treatment secondary to severe hypoxia - Lab Data Result diagrams: 02/10/23 15:32 02/10/23 15:32 Lab Results 02/10/23 02/10/23 02/10/23 Range/Units 15:32 15:32 15:32 WBC 17.4 H (3.8-10.6) k/uL RBC 4.73 (3.80-5.40) m/uL Hgb 14.2 (11.4-16.0) gm/dL Hct 43.0 (34.0-46.0) % MCV 90.9 (80.0-100.0) fL MCH 30.1 (25.0-35.0) pg MCHC 33.1 (31.0-37.0) g/dL RDW 13.8 (11.5-15.5) % Plt Count 129 L (150-450) k/uL MPV 11.2 Neutrophils % 69 % Lymphocytes % 19 % Monocytes % 6 % Eosinophils % 4 % Basophils % 0 % Neutrophils # 12.0 H (1.3-7.7) k/uL Lymphocytes # 3.2 (1.0-4.8) k/uL Monocytes # 1.0 (0-1.0) k/uL Eosinophils # 0.7 (0-0.7) k/uL Basophils # 0.1 (0-0.2) k/uL PT 10.2 (9.0-12.0) sec INR 1.0 (<1.2) APTT 27.7 (22.0-30.0) sec D-Dimer 0.76 H (<0.60) mg/L FEU Sodium 136 L (137-145) mmol/L Potassium 4.7 (3.5-5.1) mmol/L Chloride 101 (98-107) mmol/L Carbon Dioxide 28 (22-30) mmol/L Anion Gap 7 mmol/L BUN 14 (7-17) mg/dL Creatinine 0.55 (0.52-1.04) mg/dL Est GFR (CKD-EPI)AfAm >90 (>60 ml/min/1.73 sqM) Est GFR (CKD-EPI)NonAf >90 (>60 ml/min/1.73 sqM) Glucose 90 (74-99) mg/dL Calcium 9.1 (8.4-10.2) mg/dL Total Bilirubin 0.9 (0.2-1.3) mg/dL AST 44 H (14-36) U/L ALT 21 (4-34) U/L Alkaline Phosphatase 113 (38-126) U/L Troponin I (0.000-0.034) ng/mL NT-Pro-B Natriuret Pep pg/mL Total Protein 7.0 (6.3-8.2) g/dL Albumin 3.8 (3.5-5.0) g/dL 02/10/23 02/10/23 Range/Units 15:32 15:32 WBC (3.8-10.6) k/uL RBC (3.80-5.40) m/uL Hgb (11.4-16.0) gm/dL Hct (34.0-46.0) % MCV (80.0-100.0) fL MCH (25.0-35.0) pg MCHC (31.0-37.0) g/dL RDW (11.5-15.5) % Plt Count (150-450) k/uL MPV Neutrophils % % Lymphocytes % % Monocytes % % Eosinophils % % Basophils % % Neutrophils # (1.3-7.7) k/uL Lymphocytes # (1.0-4.8) k/uL Monocytes # (0-1.0) k/uL Eosinophils # (0-0.7) k/uL Basophils # (0-0.2) k/uL PT (9.0-12.0) sec INR (<1.2) APTT (22.0-30.0) sec D-Dimer (<0.60) mg/L FEU Sodium (137-145) mmol/L Potassium (3.5-5.1) mmol/L Chloride (98-107) mmol/L Carbon Dioxide (22-30) mmol/L Anion Gap mmol/L BUN (7-17) mg/dL Creatinine (0.52-1.04) mg/dL Est GFR (CKD-EPI)AfAm (>60 ml/min/1.73 sqM) Est GFR (CKD-EPI)NonAf (>60 ml/min/1.73 sqM) Glucose (74-99) mg/dL Calcium (8.4-10.2) mg/dL Total Bilirubin (0.2-1.3) mg/dL AST (14-36) U/L ALT (4-34) U/L Alkaline Phosphatase (38-126) U/L Troponin I <0.012 (0.000-0.034) ng/mL NT-Pro-B Natriuret Pep 195 pg/mL Total Protein (6.3-8.2) g/dL Albumin (3.5-5.0) g/dL - EKG Data -: EKG Interpreted by Me (EKG is sinus tachycardia 103 MA 116 QRS 94 QTC 379) - Radiology Data Radiology results: report reviewed (Chest x-ray CT chest show significant inflammation pneumonia), image reviewed Disposition Clinical Impression: Community acquired pneumonia, Acute exacerbation of chronic obstructive pulmonary disease, Hypoxia Disposition: ADMITTED IP TO THIS HOSP Condition: Serious Is patient prescribed a controlled substance at d/c from ED?: No Time of Disposition: 16:55
[2023-02-10 15:51] LABS: Basophils # (A) 0.1 k/uL (0-0.2); Basophils % (A) 0 %; Eosinophils # (A) 0.7 k/uL (0-0.7); Eosinophils % (A) 4 %; HGB 14.2 gm/dL (11.4-16.0); Lymphocytes # (A) 3.2 k/uL (1.0-4.8); Lymphocytes % (A) 19 %; MCH 30.1 pg (25.0-35.0); MCHC 33.1 g/dL (31.0-37.0); MCV 90.9 fL (80.0-100.0); Mean Platelet Volume 11.2; Monocytes % (A) 6 %; Neutrophils % (A) 69 %; Platelet Count 129 k/uL (150-450); RBC 4.73 m/uL (3.80-5.40); RDW 13.8 % (11.5-15.5); WBC 17.4 k/uL (3.8-10.6)
[2023-02-10 16:09] LABS: ALT 21 U/L (4-34); AST 44 U/L (14-36); African American GFR (CKD) >90 (>60 ml/min/1.73 sqM); Albumin 3.8 g/dL (3.5-5.0); Alkaline Phosphatase 113 U/L (38-126); Anion Gap 7 mmol/L; Blood Urea Nitrogen 14 mg/dL (7-17); Calcium 9.1 mg/dL (8.4-10.2); Carbon Dioxide 28 mmol/L (22-30); Chloride 101 mmol/L (98-107); Glucose 90 mg/dL (74-99); Non-African American GFR(CKD) >90 (>60 ml/min/1.73 sqM); Sodium 136 mmol/L (137-145); Total Bilirubin 0.9 mg/dL (0.2-1.3)
[2023-02-10 16:18] LABS: Potassium 4.7 mmol/L (3.5-5.1)
--- NOTE | 2023-02-10 16:26 | XR ---
EXAMINATION TYPE: XR chest 1V portable DATE OF EXAM: 02/10/2023 Comparison: 01/27/2023 Clinical History: 57 year-old female shortness of breath Findings: Heart normal size. Aorta within normal limits. Mild patchy and hazy bibasilar opacities have develope d from prior. No pleural effusion. ACDF hardware. Impression: New mild patchy and hazy bilateral opacities. Correlate for possible etiologies such as interstitial pneumonitis, hypersensitivity pneumonitis, and atypical/COVID pneumonia.
[2023-02-10 16:40] LABS: Partial Thromboplastin Time 27.7 sec (22.0-30.0); Prothrombin Time 10.2 sec (9.0-12.0)
[2023-02-10] MEDS ORDERED: AZITHROMYCIN 500 MG in SODIUM CHLORIDE 0.9% 250 ML IVPB STA (16:50)
[2023-02-10] MEDS ORDERED: ONDANSETRON 4 MG/2 ML VIAL IVP PRN (16:50)
[2023-02-10] MEDS ORDERED: NALOXONE 0.4 MG/ML 1 ML VIAL IV PRN (16:50)
[2023-02-10] MEDS: SODIUM CHLORIDE 0.9% 1,000 ML IV SCH (17:01)
--- NOTE | 2023-02-10 17:49 | CT ---
EXAMINATION TYPE: CT angio chest CT DLP: 435 mGycm, Automated exposure control for dose reduction was used. DATE OF EXAM: 02/10/2023 5:38 PM COMPARISON: 02/18/2021 CLINICAL INDICATION:Female, 57 years old with history of sob; SOB TECHNIQUE/CONTRAST: CTA scan of the thorax is performed with IV Contrast, patient injected with 90cc mL of Isovue 370, pu lmonary embolism protocol. MIP images are created and reviewed these are created on a separate works tation.. FINDINGS: Pulmonary Artery: There is no evidence for a central filling defect within the pulmonary vasculature to suggest acute pulmonary embolism. Limited evaluation of the segmental and subsegmental branches se condary to bolus timing. The pulmonary artery is of normal size. Lungs/Pleura: Peripheral groundglass opacities are seen throughout the lungs. Airway: Large airways are patent. Heart: Heart is within normal limits for size. Vasculature: No evidence of aortic aneurysm. Mediastinum: No gross evidence of adenopathy. Musculoskeletal: No acute osseous abnormalities Soft Tissues: Unremarkable. Lower neck: No significant findings. Upper Abdomen: No significant findings. IMPRESSION: 1. No evidence of central pulmonary embolism. Limited evaluation of the segmental and subsegmental br anches. 2. Peripheral groundglass pulmonary opacities consistent with atypical pulmonary infection such as CO VID-19.
[2023-02-10] MEDS ORDERED: ALBUTEROL NEBULIZED 1.25 MG/3 ML INHALATION SCH (20:00)
[2023-02-10] MEDS: oxyCODONE ER 10 MG TAB.ER.12H PO SCH (20:32)
[2023-02-10] MEDS: MORPHINE SULFATE ER 30 MG TABLET PO SCH (20:32)
[2023-02-10] MEDS: HYDROXYCHLOROQUINE SULFATE 200 MG TAB PO SCH (20:32)
[2023-02-10] MEDS: PREGABALIN 75 MG CAP PO SCH (20:33)
[2023-02-10] MEDS: DOXYLAMINE SUCCINATE 25 MG PO SCH (20:34)
[2023-02-10] MEDS ORDERED: ALBUTEROL NEBULIZED 2.5 MG/3 ML INHALATION PRN (21:12)
[2023-02-11] MEDS: methylPREDNISolone SOD SUCCI 125 MG/2 ML VIAL IV SCH ×4 (00:04→17:23)
[2023-02-11] MEDS: SODIUM CHLORIDE 0.9% 1,000 ML IV SCH ×3 (00:06→16:09)
--- NOTE | 2023-02-11 05:46 | P.CNPUL ---
History of Present Illness Consult date: 02/11/23 Requesting physician: Kenton Ordoñez Reason for consult: COPD, pneumonia Chief complaint: Shortness of breath History of present illness: I'm seeing this patient in new consultation today 01/22/2023 for community- acquired pneumonia. Patient is a 57-year-old female with past medical history significant for splenectomy, fibromyalgia, lupus, Sjogren's, hypothyroidism, current 1 pack per day every day smoker. Patient presented to the emergency room yesterday with chief complaint of shortness of breath that started approximately 2 weeks ago. Patient was treated outpatient for bronchitis with a combination of steroids and a Z-Jules. Her PCP is Dr. Murdock. Patient's shortness breath has been worse over the last 2 days. There is an associated minimally productive cough. Patient denies any subjective fevers, chills, chest pain, hemoptysis. Denies sick contacts. Patient is currently sitting up in bed, on 3 L nasal cannula, in no acute distress. Lung sounds are bronchospastic with scattered rhonchi on auscultation. Patient's chest x-ray on arrival showed mild patchy and hazy infiltrates at the bilateral bases. Follow-up chest CTA showed no evidence of pulmonary embolism, and peripheral ground glass pulmonary opacities consistent with atypical pneumonia. Patient was negative for COVID- 19, influenza, RSV. Patient's CBC on arrival shows leukocytosis with a WBC count of 17.4, hemoglobin 14.2, hematocrit hematocrit 43, platelets 129,000. Patient's BMP was essentially unremarkable. Patient's troponins were negative 3. NT proBNP was low. Patient is on a combination of azithromycin and ceftriaxone for community acquired pneumonia. Patient is receiving a combin ation of bronchodilators and IV Solu-Medrol. Anticoagulated with Lovenox. Afebrile. Vital signs are stable this time. Review of Systems REVIEW OF SYSTEMS: CONSTITUTIONAL: Denies any recent significant weight loss or weight gain. EYES: Denies change in vision. EARS, NOSE, MOUTH, THROAT: Denies headaches, denies sore throat. CARDIOVASCULAR: Denies chest pain, palpitations or syncopal episodes. RESPIRATORY: See HPI GASTROINTESTINAL: Denies change in appetite, abdominal pain, nausea and vomiting, or diarrhea GENITOURINARY: Denies hematuria, denies infections. MUSKULOSKELETAL: Denies pain, denies swelling. INTEGUMENTARY: Denies rash, denies eczema. NEUROLOGICAL: Denies recent memory loss, no recent seizure activity. PSYCHIATRIC: Denies anxiety, denies depression. HEMATOLOGIC/LYMPHATIC: Denies anemia, denies enlarged lymph node Past Medical History Past Medical History: Fibromyalgia, Osteoarthritis (OA), Pneumonia, Thyroid Disorder Additional Past Medical History / Comment(s): migraines, "racing" heart rate, varicose veins, ulcer, lupus, sjogrens, thrombocytopeia, sinus issues History of Any Multi-Drug Resistant Organisms: None Reported Past Surgical History: Back Surgery, Hysterectomy, Tonsillectomy Additional Past Surgical History / Comment(s): spleenectomy, laparaoscy, alon cataracts with lens implants, cervical fusion x 2, lumbar fusion, alon carpal tunnel, rt leg "ablation" for a leak in a vein, Past Anesthesia/Blood Transfusion Reactions: No Reported Reaction Smoking Status: Current every day smoker - Past Family History Mother Family Medical History: Cancer Additional Family Medical History / Comment(s): colon Medications and Allergies Home Medications Medication Instructions Recorded Confirmed Type Ascorbic Acid [Vitamin C] 1,000 mg PO DAILY 03/22/20 02/10/23 History Atorvastatin [Lipitor] 20 mg PO DAILY 03/22/20 02/10/23 History DULoxetine HCL [Cymbalta] 60 mg PO DAILY 03/22/20 02/10/23 History Doxylamine Succinate [Unisom] 50 mg PO HS 03/22/20 02/10/23 History Hydroxychloroquine Sulfate 200 mg PO BID 03/22/20 02/10/23 History [Plaquenil] Levothyroxine Sodium [Synthroid] 100 mcg PO DAILY 03/22/20 02/10/23 History Magnesium 250 mg PO DAILY 03/22/20 02/10/23 History Morphine Sulfate [Ms Contin] 30 mg PO BID 03/22/20 02/10/23 History Vitamin B Complex 1 cap PO DAILY 03/22/20 02/10/23 History oxyCODONE HCL [OxyCONTIN] 10 mg PO Q12H 03/22/20 02/10/23 History Metoprolol Succinate (ER) [Toprol 50 mg PO DAILY #30 tab 03/28/20 02/10/23 Rx XL] Pregabalin [Lyrica] 150 mg PO TID 02/18/21 02/10/23 History Albuterol Inhaler [Ventolin Hfa 2 puff INHALATION RT-QID PRN 02/10/23 02/10/23 History Inhaler] Multivit-Min/Iron/Folic/Lutein 1 tab PO HS 02/10/23 02/10/23 History [Centrum Silver Women Tablet] Allergies Allergy/AdvReac Type Severity Reaction Status Date / Time Androgenic Anabolic Steroid AdvReac Unknown Verified 02/10/23 17:01 Antihistamines - Alkylamine AdvReac Unknown Verified 02/10/23 17:01 Physical Exam Vitals: Vital Signs Temp Pulse Pulse Resp BP BP Pulse Ox 02/11/23 01:43 97.9 F 91 17 113/79 94 L 02/10/23 21:19 86 02/10/23 21:13 84 02/10/23 19:39 96.8 F L 17 120/62 98 02/10/23 18:21 98.4 F 82 19 121/84 92 L 02/10/23 16:50 100 22 118/80 92 L 02/10/23 15:47 106 H 02/10/23 15:30 103 H 02/10/23 14:41 98.5 F 105 H 28 H 136/71 85 L Intake and Output 02/10/23 02/10/23 02/11/23 14:59 22:59 06:59 Other: Voiding Method Toilet Weight 113.398 kg 113.398 kg GENERAL EXAM: Alert, 49-year-old white female, comfortable in no apparent distress. HEAD: Normocephalic and atraumatic EYES: Normal reaction of pupils, equal size. NOSE: Clear with pink turbinates. THROAT: No erythema or exudates. NECK: No masses, no JVD. CHEST: No chest wall deformity. LUNGS: Equal air entry with expiratory wheezes and scattered rhonchi throughout. On 3 L nasal cannula. No conversational dyspnea or accessory muscle use.. CVS: S1 and S2 normal with no audible murmur, regular rhythm. No extra heart sounds ABDOMEN: No hepatosplenomegaly, active bowel sounds, no guarding or rigidity. SPINE: No scoliosis or deformity SKIN: No rashes CENTRAL NERVOUS SYSTEM: No focal deficits, tone is normal in all 4 extremities. EXTREMITIES: There is no peripheral edema, clubbing, or cyanosis. Peripheral pulses are intact. Results - Laboratory Findings CBC and BMP: 02/10/23 15:32 02/10/23 15:32 PT/INR, D-dimer PT 10.2 sec (9.0-12.0) 02/10/23 15:32 INR 1.0 (<1.2) 02/10/23 15:32 D-Dimer 0.76 mg/L FEU (<0.60) H 02/10/23 15:32 Abnormal lab findings: Abnormal Labs 02/10/23 02/10/23 02/10/23 15:32 15:32 15:32 WBC 17.4 H Plt Count 129 L Neutrophils # 12.0 H D-Dimer 0.76 H Sodium 136 L AST 44 H - Diagnostic Findings Chest x-ray: image reviewed CT scan - chest: image reviewed Assessment and Plan Assessment: Suspected acute COPD exacerbation secondary to community-acquired pneumonia Acute hypoxic respiratory failure secondary to above History of splenectomy Sjogren's Lupus Fibromyalgia Chronic nicotine dependence Plan: Patient's medication, labs, chest x-ray, chest CTA reviewed Continue supplemental oxygen to maintain oxygen saturation of 92% or greater Continue azithromycin and Rocephin Blood cultures pending Sputum culture ordered Continue bronchodilators and SoluMedrol Start Symbicort inhaler Nicotine replacement offered smoking cessation information provided Lovenox for DVT prophylaxis We will continue to follow I have personally seen and examined the patient, performed the documentation and the assessment and plan as written. Number of minutes spent on the visit:20 . Time with Patient: Greater than 30
[2023-02-11] MEDS: ALBUTEROL NEBULIZED 2.5 MG/3 ML INHALATION SCH ×4 (08:33→21:30)
[2023-02-11] MEDS: SYMBICORT 160-4.5 MCG INHALER INHALATION SCH ×2 (08:33→21:29)
[2023-02-11] MEDS: ENOXAPARIN 40 MG/0.4 ML SYRINGE SQ SCH (09:24)
[2023-02-11] MEDS: NICOTINE 21MG/24HR PATCH TRANSDERM SCH (09:27)
[2023-02-11] MEDS: HYDROXYCHLOROQUINE SULFATE 200 MG TAB PO SCH ×2 (09:28→20:31)
[2023-02-11] MEDS: PREGABALIN 75 MG CAP PO SCH ×3 (09:28→20:32)
[2023-02-11] MEDS: MORPHINE SULFATE ER 30 MG TABLET PO SCH ×2 (09:28→20:31)
[2023-02-11] MEDS: oxyCODONE ER 10 MG TAB.ER.12H PO SCH ×2 (09:34→20:31)
[2023-02-11 11:14] LABS: Basophils # (A) 0.02 X 10*3/uL (0.00-0.10); Basophils % (A) 0.1 %; Eosinophils # (A) 0 X 10*3/uL (0.04-0.35); Eosinophils % (A) 0 %; HGB 13.6 g/dL (12.0-15.0); Immature Grans, Automated 0.7 %; Lymphocytes # (A) 3.01 X 10*3/uL (0.90-5.00); Lymphocytes % (A) 18.1 %; MCH 29.8 pg (27.0-32.0); MCHC 31.6 g/dL (32.0-37.0); MCV 94.1 fL (80.0-97.0); Monocytes # (A) 0.35 X 10*3/uL (0.20-1.00); Monocytes % (A) 2.1 %; NRBC Per 100 WBC 0 /100 WBCS (0.0-0.0); Platelet Count 150 X 10*3/uL (140-440); RBC 4.57 X 10*6/uL (4.10-5.20); WBC 16.59 X 10*3/uL (4.50-10.00)
[2023-02-11 14:41] LABS: African American GFR (CKD) 110.7 (60.0-200.0); Albumin 3.8 g/dL (3.8-4.9); Albumin/Globulin Ratio 1.34 (1.60-3.17); Anion Gap 13.2 mmol/L (10.00-18.00); BUN/Creat Ratio 21.03 Ratio (12.00-20.00); Blood Urea Nitrogen 14.7 mg/dL (9.0-27.0); Calcium 9.1 mg/dL (8.7-10.3); Carbon Dioxide 22.7 mmol/L (20.0-27.5); Globulin 2.8 g/dL (1.6-3.3); Non-African American GFR(CKD) 95.6 (60.0-200.0); Potassium 4.9 mmol/L (3.5-5.5); Total Bilirubin 0.2 mg/dL (0.30-1.20); Total Protein 6.6 g/dL (6.2-8.2)
[2023-02-11] MEDS: AZITHROMYCIN 500 MG in SODIUM CHLORIDE 0.9% 250 ML IVPB SCH (16:09)
[2023-02-11] MEDS: DOXYLAMINE SUCCINATE 25 MG PO SCH (20:31)
--- NOTE | 2023-02-11 21:52 | P.CONS ---
History of Present Illness - Reason for Consult Consult date: 02/11/23 Pneumonia Requesting physician: Lenore Frost - Chief Complaint Increasing shortness of breath and cough x few days - History of Present Illness Patient is a 57-year-old female with a past medical history significant for fibromyalgia osteoarthritis history of pneumonia and also with history of splenectomy presenting to the ER for evaluation of increasing short ness of breath and cough that has been going on for the last 2 to 3 weeks patient has been complaining of mostly cough which has been moderate intensity initially dry however not bring up some sputum which evaluated: No hemoptysis did have some lower rib cage chest pain from coughing patient has been treated by primary care physician with a Z-Jules however the patient did not have any improvement in her symptoms after worsening as the patient presented to hospital on arrival to the ER the patient was afebrile no fever has been recorded subsequently her white count 17.4 with a left shift kidney function has been normal liver enzymes are normal influenza RSV and COVID testing has been negative patient did have a chest x-ray new mild patchy and hazy bilateral opacity CT angiogram of the chest no evidence of PE peripheral groundglass opacities consider atypical pulmonary infection patient did have a negative COVID test here and also at home COVID test when her symptoms started and another covid test by her primary care physician were negative patient has been started on Rocephin and Zithromax , infectious diseases was consulated for further managment of antibiotic therapy Review of Systems Positive point and negatives has been mentioned in the HPI, complete review of systems was performed and all other systems are negative Past Medical History Past Medical History: Fibromyalgia, Osteoarthritis (OA), Pneumonia, Thyroid Disorder Additional Past Medical History / Comment(s): migraines, "racing" heart rate, varicose veins, ulcer, lupus, sjogrens, thrombocytopeia, sinus issues History of Any Multi-Drug Resistant Organisms: None Reported Past Surgical History: Back Surgery, Hysterectomy, Tonsillectomy Additional Past Surgical History / Comment(s): spleenectomy, laparaoscy, alon cataracts with lens implants, cervical fusion x 2, lumbar fusion, alon carpal tunnel, rt leg "ablation" for a leak in a vein, Past Anesthesia/Blood Transfusion Reactions: No Reported Reaction Smoking Status: Current every day smoker - Past Family History Mother Family Medical History: Cancer Additional Family Medical History / Comment(s): colon Medications and Allergies Home Medications Medication Instructions Recorded Confirmed Type Ascorbic Acid [Vitamin C] 1,000 mg PO DAILY 03/22/20 02/10/23 History Atorvastatin [Lipitor] 20 mg PO DAILY 03/22/20 02/10/23 History DULoxetine HCL [Cymbalta] 60 mg PO DAILY 03/22/20 02/10/23 History Doxylamine Succinate [Unisom] 50 mg PO HS 03/22/20 02/10/23 History Hydroxychloroquine Sulfate 200 mg PO BID 03/22/20 02/10/23 History [Plaquenil] Levothyroxine Sodium [Synthroid] 100 mcg PO DAILY 03/22/20 02/10/23 History Magnesium 250 mg PO DAILY 03/22/20 02/10/23 History Morphine Sulfate [Ms Contin] 30 mg PO BID 03/22/20 02/10/23 History Vitamin B Complex 1 cap PO DAILY 03/22/20 02/10/23 History oxyCODONE HCL [OxyCONTIN] 10 mg PO Q12H 03/22/20 02/10/23 History Metoprolol Succinate (ER) [Toprol 50 mg PO DAILY #30 tab 03/28/20 02/10/23 Rx XL] Pregabalin [Lyrica] 150 mg PO TID 02/18/21 02/10/23 History Albuterol Inhaler [Ventolin Hfa 2 puff INHALATION RT-QID PRN 02/10/23 02/10/23 History Inhaler] Multivit-Min/Iron/Folic/Lutein 1 tab PO HS 02/10/23 02/10/23 History [Centrum Silver Women Tablet] Nicotine 21Mg/24Hr Patch [Habitrol] 1 patch TRANSDERM DAILY #5 patch 02/17/23 Rx cefUROXime axetiL [Ceftin] 500 mg PO BID 5 Days #10 tab 02/17/23 Rx predniSONE 10 mg PO DIRECTED #40 tab 02/17/23 Rx Allergies Allergy/AdvReac Type Severity Reaction Status Date / Time Androgenic Anabolic Steroid AdvReac Unknown Verified 02/10/23 17:01 Antihistamines - Alkylamine AdvReac Unknown Verified 02/10/23 17:01 Physical Exam Vitals: Vital Signs Temp Pulse Pulse Resp BP BP Pulse Ox 02/11/23 12:44 84 02/11/23 12:31 84 02/11/23 08:45 86 18 02/11/23 08:36 94 L 02/11/23 08:33 84 18 02/11/23 07:06 97.9 F 85 19 116/78 93 L 02/11/23 01:43 97.9 F 91 17 113/79 94 L 02/10/23 21:19 86 02/10/23 21:13 84 02/10/23 19:39 96.8 F L 17 120/62 98 02/10/23 18:21 98.4 F 82 19 121/84 92 L 02/10/23 16:50 100 22 118/80 92 L 02/10/23 15:47 106 H 02/10/23 15:30 103 H Intake and Output 02/11/23 02/11/23 02/11/23 06:59 14:59 22:59 Other: Voiding Method Toilet # Voids 3 GENERAL DESCRIPTION: Middle-aged female lying in bed, no distress. No tachypnea or accessory muscle of respiration use. HEENT: Shows Pallor , no scleral icterus. Oral mucous membrane is dry. NECK: Trachea central, no thyromegaly. LUNGS: Unlabored breathing. Coarse breath sounds bilaterally, occasional wheeze. HEART: S1, S2, regular rate and rhythm. No loud murmur ABDOMEN: Soft, no tenderness , guarding or rigidity, no organomegaly EXTREMITIES: No edema of feet. SKIN: No rash, no masses palpable. NEUROLOGICAL: The patient is awake, alert, oriented x3, mood and affect normal. Results CBC & Chem 7: 02/16/23 07:22 02/16/23 07:22 Labs: Abnormal Lab Results - Last 24 Hours (Table) 02/10/23 02/10/23 02/10/23 Range/Units 15:32 15:32 15:32 WBC 17.4 H (3.8-10.6) k/uL MCHC (32.0-37.0) g/dL Plt Count 129 L (150-450) k/uL MPV (9.5-12.2) fL Immature Gran # (0.00-0.04) X 10*3/uL Neutrophils # 12.0 H (1.3-7.7) k/uL Eosinophils # (0.04-0.35) X 10*3/uL D-Dimer 0.76 H (<0.60) mg/L FEU Sodium 136 L (137-145) mmol/L BUN/Creatinine Ratio (12.00-20.00) Ratio Glucose (70-110) mg/dL Total Bilirubin (0.30-1.20) mg/dL AST 44 H (14-36) U/L Albumin/Globulin Ratio (1.60-3.17) g/dL 02/11/23 02/11/23 Range/Units 06:32 06:32 WBC 16.59 H (3.8-10.6) k/uL MCHC 31.6 L (32.0-37.0) g/dL Plt Count (150-450) k/uL MPV 13.0 H (9.5-12.2) fL Immature Gran # 0.11 H (0.00-0.04) X 10*3/uL Neutrophils # 13.10 H (1.3-7.7) k/uL Eosinophils # 0 L (0.04-0.35) X 10*3/uL D-Dimer (<0.60) mg/L FEU Sodium (137-145) mmol/L BUN/Creatinine Ratio 21.03 H (12.00-20.00) Ratio Glucose 147 H (70-110) mg/dL Total Bilirubin 0.20 L (0.30-1.20) mg/dL AST (14-36) U/L Albumin/Globulin Ratio 1.34 L (1.60-3.17) g/dL Assessment and Plan (1) Community acquired pneumonia Current Visit: Yes Status: Acute Code(s): J18.9 - PNEUMONIA, UNSPECIFIED ORGANISM SNOMED Code(s): 570492258 Plan: 1patient presented to hospital with increasing shortness of breath and cough symptom has been going on for 2-4 presented to the hospital and has been outpatient Zithromax therapy with multiple negative COVID testing patient did have a chest x-ray as well as CT suggested multifocal airspace disease suggestive of atypical infection. 2we will obtain a sputum for Gram stain and culture check a CRP and a procalcitonin level. 3continue with Rocephin and Zithromax. We will follow on clinical condition and cultures to further adjust medication if needed Thank you for this consultation we will follow the patient along with you Time with Patient: Greater than 30
--- NOTE | 2023-02-11 22:24 | HP ---
HISTORY AND PHYSICAL CHIEF COMPLAINT: Shortness of breath. HISTORY OF PRESENT ILLNESS: This is a 57-year-old woman with a past medical history of pneumonia, fibromyalgia, history of smoking, was complaining of shortness of breath over the past several days. The patient came to [facility]. The chest x-ray showed bilateral lower lobe infiltrates and D-dimer was elevated. CT angio showed bilateral interstitial infiltrate highly suggestive of COVID pneumonia or viral interstitial pneumonia. The patient was admitted for further evaluation and treatment. Initial viral testing was negative. There is no history of any fever, rigors, or chills. PAST MEDICAL HISTORY: Reviewed, include fibromyalgia, history of pneumonia. The rest of the history and rest of the chart is also reviewed. HOME MEDICATIONS: Reviewed include multivitamin. Dose and rest of the chart are also reviewed. ALLERGIES: Reviewed include antihistamines. FAMILY HISTORY: History of cancer. SOCIAL HISTORY: Continued smoking. Rare alcohol intake. REVIEW OF SYSTEMS: A 14-point review is negative except as mentioned earlier. PHYSICAL EXAMINATION: VITAL SIGNS: Pulse is 86, blood pressure 116/72, respirations 18. HEENT: Conjunctivae normal. NECK: No jugular venous distention. CARDIOVASCULAR: S1, S2 muffled. RESPIRATIONS: Bilateral scattered rhonchi. Expiratory wheezing also present. ABDOMEN: Soft, nontender. LEGS: No edema. No swelling. NERVOUS SYSTEM: No focal deficits. SKIN: No ulcer, rash, bleeding. JOINTS: No active deforming arthropathy. LABORATORY DATA: Reviewed. CT scan, chest x-ray personally reviewed. ASSESSMENT: 1. Bilateral interstitial pneumonia, possibly viral pneumonia. Rule out COVID-19 pneumonia. 2. Chronic obstructive pulmonary disease acute exacerbation. 3. History of nicotine dependence. 4. Degenerative joint disease. 5. History of pneumonia. 6. Fibromyalgia. 7. Multiple medical issues. RECOMMENDATIONS: This is a 57-year-old woman, who presented with multiple complex medical issues. We will monitor the patient closely. We will treat COPD with intensive bronchodilators, IV steroids, and empiric antibiotics. Infectious Disease evaluation. Procalcitonin. I would repeat COVID PCR. Resume the home medications once they are confirmed. Monitor blood sugars closely. Prognosis guarded because of multiple complex medical issues. Further recommendations to follow. MMODL / IJN: [id number] /
[2023-02-12] MEDS: SODIUM CHLORIDE 0.9% 1,000 ML IV SCH ×3 (00:02→15:38)
[2023-02-12] MEDS: methylPREDNISolone SOD SUCCI 125 MG/2 ML VIAL IV SCH ×4 (00:04→17:52)
[2023-02-12] MEDS: NICOTINE 21MG/24HR PATCH TRANSDERM SCH (07:58)
[2023-02-12] MEDS: PREGABALIN 75 MG CAP PO SCH ×3 (07:58→21:49)
[2023-02-12] MEDS: MORPHINE SULFATE ER 30 MG TABLET PO SCH ×2 (07:58→21:49)
[2023-02-12] MEDS: oxyCODONE ER 10 MG TAB.ER.12H PO SCH ×2 (07:59→21:49)
[2023-02-12] MEDS: HYDROXYCHLOROQUINE SULFATE 200 MG TAB PO SCH ×2 (07:59→22:05)
[2023-02-12] MEDS: ENOXAPARIN 40 MG/0.4 ML SYRINGE SQ SCH (08:00)
[2023-02-12] MEDS: SYMBICORT 160-4.5 MCG INHALER INHALATION SCH ×2 (09:03→23:08)
[2023-02-12] MEDS: ALBUTEROL NEBULIZED 2.5 MG/3 ML INHALATION SCH ×4 (09:03→23:07)
--- NOTE | 2023-02-12 13:01 | XR ---
EXAMINATION TYPE: XR chest 1V portable DATE OF EXAM: 02/12/2023 HISTORY: Shortness of breath. COMPARISON: 02/10/2023 TECHNIQUE: Single view of the chest is submitted. FINDINGS: Demonstrated are scattered senescent parenchymal change. Patchy hazy bilateral opacities seen previously appear to have improved although there is persistent interstitial prominence and bronchial wall thickening. The heart is stable. Hilar and mediastinal structures are within normal limits. Degenerative changes are seen of the dorsal spine. IMPRESSION: 1. Correlate for interstitial pneumonia or atypical pneumonia. Overall appearance is improved. Corre late clinically.
--- NOTE | 2023-02-12 13:21 | P.PN ---
Subjective Progress Note Date: 02/12/23 I'm seeing this patient in new consultation today 01/22/2023 for community- acquired pneumonia. Patient is a 57-year-old female with past medical history significant for splenectomy, fibromyalgia, lupus, Sjogren's, hypothyroidism, current 1 pack per day every day smoker. Patient presented to the emergency room yesterday with chief complaint of shortness of breath that started approximately 2 weeks ago. Patient was treated outpatient for bronchitis with a combination of steroids and a Z-Jules. Her PCP is Dr. Murdock. Patient's shortness breath has been worse over the last 2 days. There is an associated minimally productive cough. Patient denies any subjective fevers, chills, chest pain, hemoptysis. Denies sick contacts. Patient is currently sitting up in bed, on 3 L nasal cannula, in no acute distress. Lung sounds are bronchospastic with scattered rhonchi on auscultation. Patient's chest x-ray on arrival showed mild patchy and hazy infiltrates at the bilateral bases. Follow-up chest CTA showed no evidence of pulmonary embolism, and peripheral ground glass pulmonary opacities consistent with atypical pneumonia. Patient was negative for COVID- 19, influenza, RSV. Patient's CBC on arrival shows leukocytosis with a WBC count of 17.4, hemoglobin 14.2, hematocrit hematocrit 43, platelets 129,000. Patient's BMP was essentially unremarkable. Patient's troponins were negative 3. NT proBNP was low. Patient is on a combination of azithromycin and ceftriaxone for community acquired pneumonia. Patient is receiving a combination of bronchodilators and IV Solu-Medrol. Anticoagulated with Lovenox. Afebrile. Vital signs are stable this time. The patient is seen today 02/12/2023 in follow-up on the regular medical floor. She is slightly better today compared to yesterday. Still short of breath with minimal exertion. Still with a loose nonproductive cough. Maintaining O2 saturations in the 90s on 3 L/m per nasal cannula. Her pro-calcitonin is 0.08. Follow-up chest x-ray shows interstitial pneumonia versus atypical pneumonia. Overall improvement in appearance. Blood cultures pending. Sputum culture pending. Follow-up COVID-19 screen still negative. She remains on ceftriaxone and azithromycin. Continued on Symbicort and albuterol along with IV Solu-Medrol. NicoDerm patch in place. Objective - Vital Signs Vital signs: Vital Signs Temp 97.7 F 02/12/23 07:01 Pulse 94 02/12/23 12:09 Resp 18 02/12/23 12:09 BP 126/83 02/12/23 07:01 Pulse Ox 96 02/12/23 09:07 FiO2 Intake & Output 02/11/23 02/12/23 02/12/23 18:59 06:59 18:59 Intake Total 500 Balance 500 Intake: Oral 500 Other: Voiding Method Toilet Toilet Toilet # Voids 2 5 - Exam GENERAL EXAM: Alert, pleasant 49-year-old female, on 3 L nasal cannula, comfortable in no apparent distress. HEAD: Normocephalic. EYES: Normal reaction of pupils, equal size. NOSE: Clear with pink turbinates. THROAT: No erythema or exudates. NECK: No masses, no JVD. CHEST: No chest wall deformity. LUNGS: Equal air entry with few scattered rhonchi bilaterally. CVS: S1 and S2 normal with no audible murmur, regular rhythm. ABDOMEN: No hepatosplenomegaly, normal bowel sounds, no guarding or rigidity. SPINE: No scoliosis or deformity SKIN: No rashes CENTRAL NERVOUS SYSTEM: No focal deficits, tone is normal in all 4 extremities. EXTREMITIES: There is no peripheral edema. No clubbing, no cyanosis. Peripheral pulses are intact. - Labs CBC & Chem 7: 02/11/23 06:32 02/11/23 06:32 Labs: Abnormal Lab Results - Last 24 Hours (Table) 02/11/23 02/12/23 Range/Units 06:32 05:56 BUN/Creatinine Ratio 21.03 H (12.00-20.00) Ratio Glucose 147 H (70-110) mg/dL Total Bilirubin 0.20 L (0.30-1.20) mg/dL C-Reactive Protein 6.4 H (<1.0) mg/dL Albumin/Globulin Ratio 1.34 L (1.60-3.17) g/dL Microbiology - Last 24 Hours (Table) 02/10/23 17:30 Blood Culture - Preliminary Blood 02/10/23 17:15 Blood Culture - Preliminary Blood 02/11/23 12:36 Sputum Culture - Preliminary Sputum Assessment and Plan Assessment: Suspected acute COPD exacerbation secondary to community-acquired pneumonia. Follow-up CoVID 19 19 screen negative. Pro-calcitonin 0.08. Follow-up chest x- ray showing improvement. Continued on antibiotics for now. Acute hypoxic respiratory failure secondary to above History of splenectomy Sjogren's Lupus Fibromyalgia Chronic nicotine dependence Plan: The patient was seen and evaluated Chest x-ray, labs and medications reviewed Follow-up CoVID 19 screen negative Continue ceftriaxone and azithromycin Continue bronchodilators and steroids Titrate the FiO2 as tolerated We will continue to follow I have personally seen and examined the patient, performed the documentation and the assessment and plan as written. Number of minutes spent on the visit: 10.
[2023-02-12] MEDS: AZITHROMYCIN 500 MG in SODIUM CHLORIDE 0.9% 250 ML IVPB SCH (16:22)
[2023-02-12] MEDS: DOXYLAMINE SUCCINATE 25 MG PO SCH (21:48)
[2023-02-12] MEDS: diphenhydrAMINE 25 MG CAP PO PRN (21:50)
[2023-02-13] MEDS: SODIUM CHLORIDE 0.9% 1,000 ML IV SCH ×2 (00:14→04:58)
[2023-02-13] MEDS: methylPREDNISolone SOD SUCCI 125 MG/2 ML VIAL IV SCH ×5 (00:20→23:00)
--- NOTE | 2023-02-13 05:04 | PN ---
PROGRESS NOTE DATE OF SERVICE: 02/12/2023 SUBJECTIVE: This is a 57-year-old woman who was admitted with bilateral interstitial pneumonia, possibly viral pneumonia, is being closely monitored. The patient is feeling slightly better. The most recent chest x-ray, which I reviewed personally showed some improvement. OBJECTIVE: VITAL SIGNS: Pulse is 107, blood pressure 114/80, respirations 17. CHEST: A few scattered rhonchi and crackles. ABDOMEN: Soft. NERVOUS SYSTEM: Nonfocal. LABORATORY DATA: Reviewed. COVID-19 test is negative ASSESSMENT: 1. Bilateral interstitial pneumonia, possibly viral pneumonia: COVID-19 test is negative. 2. Chronic obstructive pulmonary disease acute exacerbation. 3. History of nicotine dependence. 4. Degenerative joint disease. 5. History of pneumonia. 6. History of nicotine dependence. 7. Fibromyalgia. 8. Multiple medical issues. RECOMMENDATIONS: Recommend to continue current management and symptomatic treatment. Continue with bronchodilators, empiric antibiotics, steroids. Closely follow with Infectious Disease. Further recommendations to follow. MMODL / IJN: [id number] /
[2023-02-13] MEDS: HYDROXYCHLOROQUINE SULFATE 200 MG TAB PO SCH ×2 (08:39→20:44)
[2023-02-13] MEDS: MORPHINE SULFATE ER 30 MG TABLET PO SCH ×2 (08:40→20:43)
[2023-02-13] MEDS: PREGABALIN 75 MG CAP PO SCH ×3 (08:40→20:43)
[2023-02-13] MEDS: oxyCODONE ER 10 MG TAB.ER.12H PO SCH ×2 (08:40→20:43)
[2023-02-13] MEDS: NICOTINE 21MG/24HR PATCH TRANSDERM SCH (08:40)
[2023-02-13] MEDS: ENOXAPARIN 40 MG/0.4 ML SYRINGE SQ SCH (08:41)
[2023-02-13] MEDS: ALBUTEROL NEBULIZED 2.5 MG/3 ML INHALATION SCH ×4 (08:55→21:29)
[2023-02-13] MEDS: SYMBICORT 160-4.5 MCG INHALER INHALATION SCH ×2 (08:55→21:29)
[2023-02-13 09:40] LABS: African American GFR (CKD) 116.4 (60.0-200.0); Anion Gap 8.5 mmol/L (10.00-18.00); BUN/Creat Ratio 24.17 Ratio (12.00-20.00); Blood Urea Nitrogen 14.5 mg/dL (9.0-27.0); Calcium 9.4 mg/dL (8.7-10.3); Carbon Dioxide 26.5 mmol/L (20.0-27.5); Non-African American GFR(CKD) 100.5 (60.0-200.0)
[2023-02-13 10:48] LABS: HCT 40.2 % (37.2-46.3); HGB 12.6 g/dL (12.0-15.0); MCH 29.1 pg (27.0-32.0); MCHC 31.3 g/dL (32.0-37.0); MCV 92.8 fL (80.0-97.0); Mean Platelet Volume 13.4 fL (9.5-12.2); NRBC Per 100 WBC 0.1 /100 WBCS (0.0-0.0); Platelet Count 183 X 10*3/uL (140-440); RBC 4.33 X 10*6/uL (4.10-5.20); RDW 14.5 % (11.5-14.5); WBC 23.47 X 10*3/uL (4.50-10.00)
[2023-02-13 12:00] LABS: Basophils # (A) 0.04 X 10*3/uL (0.00-0.10); Basophils % (A) 0.2 %; Eosinophils # (A) 0 X 10*3/uL (0.04-0.35); Eosinophils % (A) 0 %; Immature Grans, Automated 0.7 %; Lymphocytes # (A) 2.65 X 10*3/uL (0.90-5.00); Lymphocytes % (A) 11.3 %; Monocytes # (A) 0.87 X 10*3/uL (0.20-1.00); Monocytes % (A) 3.7 %; Neutrophils # (A) 19.74 X 10*3/uL (1.80-7.70); Neutrophils % (A) 84.1 %
[2023-02-13 12:01] LABS: RBC Morphology NORMAL
--- NOTE | 2023-02-13 12:32 | P.PN ---
Subjective Progress Note Date: 02/13/23 I'm seeing this patient in new consultation today 01/22/2023 for community- acquired pneumonia. Patient is a 57-year-old female with past medical history significant for splenectomy, fibromyalgia, lupus, Sjogren's, hypothyroidism, current 1 pack per day every day smoker. Patient presented to the emergency room yesterday with chief complaint of shortness of breath that started approximately 2 weeks ago. Patient was treated outpatient for bronchitis with a combination of steroids and a Z-Jules. Her PCP is Dr. Murdock. Patient's shortness breath has been worse over the last 2 days. There is an associated minimally productive cough. Patient denies any subjective fevers, chills, chest pain, hemoptysis. Denies sick contacts. Patient is currently sitting up in bed, on 3 L nasal cannula, in no acute distress. Lung sounds are bronchospastic with scattered rhonchi on auscultation. Patient's chest x-ray on arrival showed mild patchy and hazy infiltrates at the bilateral bases. Follow-up chest CTA showed no evidence of pulmonary embolism, and peripheral ground glass pulmonary opacities consistent with atypical pneumonia. Patient was negative for COVID- 19, influenza, RSV. Patient's CBC on arrival shows leukocytosis with a WBC count of 17.4, hemoglobin 14.2, hematocrit hematocrit 43, platelets 129,000. Patient's BMP was essentially unremarkable. Patient's troponins were negative 3. NT proBNP was low. Patient is on a combination of azithromycin and ceftriaxone for community acquired pneumonia. Patient is receiving a combination of bronchodilators and IV Solu-Medrol. Anticoagulated with Lovenox. Afebrile. Vital signs are stable this time. The patient is seen today 02/12/2023 in follow-up on the regular medical floor. She is slightly better today compared to yesterday. Still short of breath with minimal exertion. Still with a loose nonproductive cough. Maintaining O2 saturations in the 90s on 3 L/m per nasal cannula. Her pro-calcitonin is 0.08. Follow-up chest x-ray shows interstitial pneumonia versus atypical pneumonia. Overall improvement in appearance. Blood cultures pending. Sputum culture pending. Follow-up COVID-19 screen still negative. She remains on ceftriaxone and azithromycin. Continued on Symbicort and albuterol along with IV Solu-Medrol. NicoDerm patch in place. The patient is seen today 02/13/2023 in follow-up on the regular medical floor. She is sitting up in bed. Awake and alert in no acute distress. Follow-up chest x-ray is showing improvement in the interstitial pneumonia. She is feeling better today compared to yesterday. Maintaining O2 saturations in the high 90s on 3 L/m per nasal cannula. Afebrile. Hemodynamically stable. Blood culture pending. Sputum culture pending. Follow-up pro-calcitonin still negative at 0.05. White count 23.4. Hemoglobin 12.6. Sodium 141. Potassium 5.0. BUN 14.5. Creatinine 0.6. Glucose 132. She remains on ceftriaxone and azithromycin. Continue on Symbicort and albuterol. Remains on IV Solu-Medrol. NicoDerm patch is in place. Objective - Vital Signs Vital signs: Vital Signs Temp 98.3 F 02/13/23 06:57 Pulse 92 02/13/23 09:09 Resp 19 02/13/23 06:57 BP 134/81 02/13/23 06:57 Pulse Ox 98 02/13/23 08:56 FiO2 Intake & Output 02/12/23 02/13/23 02/13/23 18:59 06:59 18:59 Intake Total 500 Balance 500 Intake: Oral 500 Other: Voiding Method Toilet Toilet # Voids 1 3 # Bowel Movements 1 - Exam GENERAL EXAM: Alert, pleasant 57-year-old female, sitting up in bed, on 3 L nasal cannula, comfortable in no apparent distress. HEAD: Normocephalic. EYES: Normal reaction of pupils, equal size. NOSE: Clear with pink turbinates. THROAT: No erythema or exudates. NECK: No masses, no JVD. CHEST: No chest wall deformity. LUNGS: Equal air entry with few scattered rhonchi bilaterally. CVS: S1 and S2 normal with no audible murmur, regular rhythm. ABDOMEN: No hepatosplenomegaly, normal bowel sounds, no guarding or rigidity. SPINE: No scoliosis or deformity SKIN: No rashes CENTRAL NERVOUS SYSTEM: No focal deficits, tone is normal in all 4 extremities. EXTREMITIES: There is no peripheral edema. No clubbing, no cyanosis. Peripheral pulses are intact. - Labs CBC & Chem 7: 02/13/23 05:44 02/13/23 05:44 Labs: Abnormal Lab Results - Last 24 Hours (Table) 02/13/23 02/13/23 Range/Units 05:44 05:44 WBC 23.47 H (4.50-10.00) X 10*3/uL MCHC 31.3 L (32.0-37.0) g/dL MPV 13.4 H (9.5-12.2) fL Absolute Nucleated RBC 0.02 H (0.00-0.00) X 10*3/uL Immature Gran # 0.17 H (0.00-0.04) X 10*3/uL Neutrophils # 19.74 H (1.80-7.70) X 10*3/uL Eosinophils # 0 L (0.04-0.35) X 10*3/uL NRBC/100 WBC Diff 0.1 H (0.0-0.0) /100 WBCS Anion Gap 8.50 L (10.00-18.00) mmol/L BUN/Creatinine Ratio 24.17 H (12.00-20.00) Ratio Glucose 132 H (70-110) mg/dL Microbiology - Last 24 Hours (Table) 02/10/23 17:30 Blood Culture - Preliminary Blood 02/10/23 17:15 Blood Culture - Preliminary Blood Assessment and Plan Assessment: Suspected acute COPD exacerbation secondary to community-acquired pneumonia. Follow-up CoVID 19 19 screen negative. Pro-calcitonin 0.05. Follow-up chest x- ray showing improvement. Continued on antibiotics for now. Acute hypoxic respiratory failure secondary to above History of splenectomy Sjogren's Lupus Fibromyalgia Chronic nicotine dependence Plan: The patient was seen and evaluated Labs and medications reviewed Follow-up CoVID 19 screen negative Continue ceftriaxone and azithromycin Continue bronchodilators and steroids Again educated regarding the importance of complete smoking cessation NicoDerm patch remains in place Titrate down the FiO2 as tolerated We will continue to follow I have personally seen and examined the patient, performed the documentation and the assessment and plan as written. Number of minutes spent on the visit: 10.
--- NOTE | 2023-02-13 13:27 | XR ---
EXAMINATION TYPE: XR chest 1V portable DATE OF EXAM: 02/13/2023 CLINICAL HISTORY: Difficulty breathing progress study. TECHNIQUE: Single AP portable upright view of the chest is obtained. COMPARISON: Chest x-ray from one day earlier and older studies. FINDINGS: Persistent patchy left mid to lower lung increased opacities. Additional areas of increase d opacity bilaterally on recent CT are less well seen on plain films. Cardiac silhouette size stable and within normal limits. Osseous structures are intact. IMPRESSION: Persistent left mid to lower lung acute infiltrates. No significant change from most rece nt x-ray.
--- NOTE | 2023-02-13 15:42 | P.PN ---
Subjective Progress Note Date: 02/12/23 Principal diagnosis: Pneumonia Patient is a 57-year-old female with a past medical history significant for fibromyalgia osteoarthritis history of pneumonia and also with history of splenectomy presenting to the ER for evaluation of increasing shortness of breath and cough, patient did have CT angiogram of the chest with groundglass opacity concerning for pneumonia. On today's evaluation that is 02/12/2023, the patient remains to be afebrile the patient is currently breathing comfortably on 3 L nasal cannula oxygen patient denies having any chest pain could have a cough moderate intensity with minimal sputum production or hemoptysis no nausea no vomiting no abdominal pain or diarrhea Objective - Vital Signs Vital signs: Vital Signs Temp 97.7 F 02/12/23 07:01 Pulse 94 02/12/23 12:09 Resp 18 02/12/23 12:09 BP 126/83 02/12/23 07:01 Pulse Ox 96 02/12/23 09:07 FiO2 Intake & Output 02/11/23 02/12/23 02/12/23 18:59 06:59 18:59 Intake Total 500 Balance 500 Intake: Oral 500 Other: Voiding Method Toilet Toilet Toilet # Voids 2 5 - Exam GENERAL DESCRIPTION: Middle-aged female lying in bed in no distress RESPIRATORY SYSTEM: Unlabored breathing , coarse breath sounds bilaterally HEART: S1 S2 regular rate and rhythm , ABDOMEN: Soft , no tenderness EXTREMITIES: No edema feet - Labs CBC & Chem 7: 02/13/23 05:44 02/13/23 05:44 Labs: Abnormal Lab Results - Last 24 Hours (Table) 02/11/23 02/12/23 Range/Units 06:32 05:56 BUN/Creatinine Ratio 21.03 H (12.00-20.00) Ratio Glucose 147 H (70-110) mg/dL Total Bilirubin 0.20 L (0.30-1.20) mg/dL C-Reactive Protein 6.4 H (<1.0) mg/dL Albumin/Globulin Ratio 1.34 L (1.60-3.17) g/dL Microbiology - Last 24 Hours (Table) 02/10/23 17:30 Blood Culture - Preliminary Blood 02/10/23 17:15 Blood Culture - Preliminary Blood 02/11/23 12:36 Sputum Culture - Preliminary Sputum Assessment and Plan (1) Community acquired pneumonia Current Visit: Yes Status: Acute Code(s): J18.9 - PNEUMONIA, UNSPECIFIED ORGANISM SNOMED Code(s): 873868299 Plan: 1patient presented to hospital with increasing shortness of breath and cough symptom has been going on for 2-4 presented to the hospital and has been outpatient Zithromax therapy with multiple negative COVID testing patient did have a chest x-ray as well as CT suggested multifocal airspace disease suggestive of atypical infection. 2 sputum for Gram stain and culture currently pending, patient did have elevated CRP however procalcitonin level is normal. 3may continue with Rocephin and Zithromax. Time with Patient: Less than 30
--- NOTE | 2023-02-13 15:45 | P.PN ---
Subjective Progress Note Date: 02/13/23 Principal diagnosis: Pneumonia Patient is a 57-year-old female with a past medical history significant for fibromyalgia osteoarthritis history of pneumonia and also with history of splenectomy presenting to the ER for evaluation of increasing shortness of breath and cough, patient did have CT angiogram of the chest with groundglass opacity concerning for pneumonia. On today's evaluation that is 02/13/2023, the patient continues to be afebrile, the patient is currently breathing comfortably on 3 L nasal cannula oxygen patient denies having any chest pain the patient cough has mildly decreased in intensity with minimal sputum production or hemoptysis no nausea no vomiting no abdominal pain or diarrhea Objective - Vital Signs Vital signs: Vital Signs Temp 98.0 F 02/13/23 14:17 Pulse 80 02/13/23 15:35 Resp 17 02/13/23 14:17 BP 147/80 02/13/23 14:17 Pulse Ox 96 02/13/23 14:17 FiO2 Intake & Output 02/12/23 02/13/23 02/13/23 18:59 06:59 18:59 Intake Total 500 Balance 500 Intake: Oral 500 Other: Voiding Method Toilet Toilet # Voids 1 3 4 # Bowel Movements 1 - Exam GENERAL DESCRIPTION: Middle-aged female lying in bed in no distress RESPIRATORY SYSTEM: Unlabored breathing , coarse breath sounds bilaterally HEART: S1 S2 regular rate and rhythm , ABDOMEN: Soft , no tenderness EXTREMITIES: No edema feet - Labs CBC & Chem 7: 02/13/23 05:44 02/13/23 05:44 Labs: Abnormal Lab Results - Last 24 Hours (Table) 02/13/23 02/13/23 Range/Units 05:44 05:44 WBC 23.47 H (4.50-10.00) X 10*3/uL MCHC 31.3 L (32.0-37.0) g/dL MPV 13.4 H (9.5-12.2) fL Absolute Nucleated RBC 0.02 H (0.00-0.00) X 10*3/uL Immature Gran # 0.17 H (0.00-0.04) X 10*3/uL Neutrophils # 19.74 H (1.80-7.70) X 10*3/uL Eosinophils # 0 L (0.04-0.35) X 10*3/uL NRBC/100 WBC Diff 0.1 H (0.0-0.0) /100 WBCS Anion Gap 8.50 L (10.00-18.00) mmol/L BUN/Creatinine Ratio 24.17 H (12.00-20.00) Ratio Glucose 132 H (70-110) mg/dL Microbiology - Last 24 Hours (Table) 02/11/23 12:36 Gram Stain - Final Sputum Sputum Culture - Final 02/10/23 17:30 Blood Culture - Preliminary Blood 02/10/23 17:15 Blood Culture - Preliminary Blood Assessment and Plan (1) Community acquired pneumonia Current Visit: Yes Status: Acute Code(s): J18.9 - PNEUMONIA, UNSPECIFIED ORGANISM SNOMED Code(s): 945029944 Plan: 1patient presented to hospital with increasing shortness of breath and cough symptom has been going on for 2-4 presented to the hospital and has been outpatient Zithromax therapy with multiple negative COVID testing patient did have a chest x-ray as well as CT suggested multifocal airspace disease suggestive of atypical infection. 2 sputum for Gram stain and culture currently pending, patient did have elevated CRP however procalcitonin level is normal. 3patient with abnormal CT suggestive of multifocal pneumonia with some clinical improvement, to continue with bronchodilator and steroids per pulmonary and a short course of antibiotics with elevated CRP Time with Patient: Less than 30
[2023-02-13] MEDS: AZITHROMYCIN 500 MG in SODIUM CHLORIDE 0.9% 250 ML IVPB SCH (16:35)
[2023-02-13] MEDS: MULTIVITAMINS, THERA 1 EACH TAB PO SCH (20:43)
[2023-02-13] MEDS: DOXYLAMINE SUCCINATE 25 MG PO SCH (20:45)
[2023-02-13] MEDS: diphenhydrAMINE 25 MG CAP PO PRN (23:00)
[2023-02-14] MEDS: methylPREDNISolone SOD SUCCI 125 MG/2 ML VIAL IV SCH (06:36)
[2023-02-14] MEDS: LEVOTHYROXINE 100 MCG TAB PO SCH (06:36)
--- NOTE | 2023-02-14 07:45 | PN ---
PROGRESS NOTE DATE OF SERVICE: 02/13/2023 SUBJECTIVE: This 57-year-old woman was admitted with bilateral pneumonia, possibly viral in nature. She is improving at this time. No chest pain. No palpitations. No fever. Most recent chest x-ray which I reviewed personally showed persistent bilateral infiltrate. COVID-19 is negative, but highly suggestive of COVID-19 infection. PHYSICAL EXAMINATION: VITAL SIGNS: Pulse is 81, blood pressure 130/81, respirations 19. CHEST: A few scattered rhonchi. CARDIOVASCULAR: S1, S2 muffled. ABDOMEN: Soft. NERVOUS SYSTEM: Nonfocal. LABORATORY DATA: Reviewed. ASSESSMENT: 1. Bilateral interstitial pneumonia, possibly viral pneumonia, COVID-19 test is negative. 2. Chronic obstructive pulmonary disease acute exacerbation. 3. History of nicotine dependence. 4. Gastroparesis. 5. Degenerative joint disease. 6. Multiple medical issues. RECOMMENDATIONS: This 57-year-old woman who presented with multiple medical issues at this time. I recommend to continue with IV antibiotics. Repeat labs in the morning. Otherwise, closely follow with Pulmonary, Infectious Disease. Further recommendations to follow. MMODL / IJN: [id number] /
[2023-02-14] MEDS: NICOTINE 21MG/24HR PATCH TRANSDERM SCH (08:22)
[2023-02-14] MEDS: HYDROXYCHLOROQUINE SULFATE 200 MG TAB PO SCH ×2 (08:23→20:17)
[2023-02-14] MEDS: PREGABALIN 75 MG CAP PO SCH ×3 (08:23→22:40)
[2023-02-14] MEDS: ATORVASTATIN 20 MG TAB PO SCH (08:23)
[2023-02-14] MEDS: MAGNESIUM OXIDE 400 MG TAB PO SCH (08:23)
[2023-02-14] MEDS: DULoxetine HCL 60 MG CAPSULE.DR PO SCH (08:23)
[2023-02-14] MEDS: ENOXAPARIN 40 MG/0.4 ML SYRINGE SQ SCH (08:23)
[2023-02-14] MEDS: METOPROLOL SUCCINATE (ER) 50 MG TAB.ER.24H PO SCH (08:24)
[2023-02-14] MEDS: MORPHINE SULFATE ER 30 MG TABLET PO SCH ×2 (08:24→20:17)
[2023-02-14] MEDS: ALBUTEROL NEBULIZED 2.5 MG/3 ML INHALATION SCH ×4 (08:26→20:29)
[2023-02-14] MEDS: SYMBICORT 160-4.5 MCG INHALER INHALATION SCH ×2 (08:26→20:29)
[2023-02-14] MEDS: oxyCODONE ER 10 MG TAB.ER.12H PO SCH ×2 (08:33→20:18)
[2023-02-14] MEDS ORDERED: NON FORMULARY DRUG (Vitamin B Complex [Vitamin B Complex] 1 EACH Capsule) PO SCH (09:00)
[2023-02-14 10:18] LABS: African American GFR (CKD) 112.2 (60.0-200.0); Anion Gap 13.5 mmol/L (10.00-18.00); BUN/Creat Ratio 18.33 Ratio (12.00-20.00); Blood Urea Nitrogen 12.3 mg/dL (9.0-27.0); Calcium 9.2 mg/dL (8.7-10.3); Non-African American GFR(CKD) 96.8 (60.0-200.0)
[2023-02-14 10:56] LABS: Basophils # (A) 0.03 X 10*3/uL (0.00-0.10); Basophils % (A) 0.1 %; Eosinophils # (A) 0 X 10*3/uL (0.04-0.35); Eosinophils % (A) 0 %; HGB 13.2 g/dL (12.0-15.0); Immature Grans, Automated 1.1 %; Lymphocytes # (A) 2.96 X 10*3/uL (0.90-5.00); Lymphocytes % (A) 14.2 %; MCH 30.1 pg (27.0-32.0); MCHC 32.2 g/dL (32.0-37.0); MCV 93.6 fL (80.0-97.0); Mean Platelet Volume 13.4 fL (9.5-12.2); Monocytes # (A) 1.18 X 10*3/uL (0.20-1.00); Monocytes % (A) 5.7 %; NRBC Per 100 WBC 0.1 /100 WBCS (0.0-0.0); Neutrophils # (A) 16.46 X 10*3/uL (1.80-7.70); Neutrophils % (A) 78.9 %; Platelet Count 167 X 10*3/uL (140-440); RBC 4.38 X 10*6/uL (4.10-5.20); RDW 14.7 % (11.5-14.5); WBC 20.86 X 10*3/uL (4.50-10.00)
[2023-02-14] MEDS: methylPREDNISolone SOD SUCCI 40 MG/ML 1 ML VIAL IV SCH ×3 (12:39→23:49)
--- NOTE | 2023-02-14 13:02 | P.PN ---
Subjective Progress Note Date: 02/14/23 I'm seeing this patient in new consultation today 01/22/2023 for community- acquired pneumonia. Patient is a 57-year-old female with past medical history significant for splenectomy, fibromyalgia, lupus, Sjogren's, hypothyroidism, current 1 pack per day every day smoker. Patient presented to the emergency room yesterday with chief complaint of shortness of breath that started approximately 2 weeks ago. Patient was treated outpatient for bronchitis with a combination of steroids and a Z-Jules. Her PCP is Dr. Murdock. Patient's shortness breath has been worse over the last 2 days. There is an associated minimally productive cough. Patient denies any subjective fevers, chills, chest pain, hemoptysis. Denies sick contacts. Patient is currently sitting up in bed, on 3 L nasal cannula, in no acute distress. Lung sounds are bronchospastic with scattered rhonchi on auscultation. Patient's chest x-ray on arrival showed mild patchy and hazy infiltrates at the bilateral bases. Follow-up chest CTA showed no evidence of pulmonary embolism, and peripheral ground glass pulmonary opacities consistent with atypical pneumonia. Patient was negative for COVID- 19, influenza, RSV. Patient's CBC on arrival shows leukocytosis with a WBC count of 17.4, hemoglobin 14.2, hematocrit hematocrit 43, platelets 129,000. Patient's BMP was essentially unremarkable. Patient's troponins were negative 3. NT proBNP was low. Patient is on a combination of azithromycin and ceftriaxone for community acquired pneumonia. Patient is receiving a combination of bronchodilators and IV Solu-Medrol. Anticoagulated with Lovenox. Afebrile. Vital signs are stable this time. The patient is seen today 02/12/2023 in follow-up on the regular medical floor. She is slightly better today compared to yesterday. Still short of breath with minimal exertion. Still with a loose nonproductive cough. Maintaining O2 saturations in the 90s on 3 L/m per nasal cannula. Her pro-calcitonin is 0.08. Follow-up chest x-ray shows interstitial pneumonia versus atypical pneumonia. Overall improvement in appearance. Blood cultures pending. Sputum culture pending. Follow-up COVID-19 screen still negative. She remains on ceftriaxone and azithromycin. Continued on Symbicort and albuterol along with IV Solu-Medrol. NicoDerm patch in place. The patient is seen today 02/13/2023 in follow-up on the regular medical floor. She is sitting up in bed. Awake and alert in no acute distress. Follow-up chest x-ray is showing improvement in the interstitial pneumonia. She is feeling better today compared to yesterday. Maintaining O2 saturations in the high 90s on 3 L/m per nasal cannula. Afebrile. Hemodynamically stable. Blood culture pending. Sputum culture pending. Follow-up pro-calcitonin still negative at 0.05. White count 23.4. Hemoglobin 12.6. Sodium 141. Potassium 5.0. BUN 14.5. Creatinine 0.6. Glucose 132. She remains on ceftriaxone and azithromycin. Continue on Symbicort and albuterol. Remains on IV Solu-Medrol. NicoDerm patch is in place. The patient is seen today 02/14/2023 in follow-up on the regular medical floor. She remains awake and alert in no acute distress. She is doing about the same. She's been slow to progress. She is complaining of some insomnia most likely due to the steroids. She is maintaining O2 saturations in the 90s on 2 L/m per nasal cannula. She still has a loose cough. Still with some wheezing. She's been continued on Symbicort, albuterol, IV Solu-Medrol. Remains on ceftriaxone. Lovenox for DVT prophylaxis. NicoDerm patch in place. Blood cultures reveal no growth. Sputum culture revealed no growth. White count 20.8. Hemoglobin 13 .2. Platelets 167. Sodium 142. Potassium 5.0. Bicarb 23. BUN 12.3. Creatinine 0.7. Glucose 154. Pro-calcitonin 0.05. Objective - Vital Signs Vital signs: Vital Signs Temp 97.8 F 02/14/23 07:16 Pulse 88 02/14/23 12:15 Resp 18 02/14/23 07:16 BP 143/78 02/14/23 07:16 Pulse Ox 96 02/14/23 08:27 FiO2 Intake & Output 02/13/23 02/14/23 02/14/23 18:59 06:59 18:59 Other: Voiding Method Toilet Toilet # Voids 4 2 - Exam GENERAL EXAM: Alert, 57-year-old female, resting in bed, on 2 L nasal cannula, comfortable in no apparent distress. HEAD: Normocephalic. EYES: Normal reaction of pupils, equal size. NOSE: Clear with pink turbinates. THROAT: No erythema or exudates. NECK: No masses, no JVD. CHEST: No chest wall deformity. LUNGS: Equal air entry with few scattered rhonchi bilaterally. CVS: S1 and S2 normal with no audible murmur, regular rhythm. ABDOMEN: No hepatosplenomegaly, normal bowel sounds, no guarding or rigidity. SPINE: No scoliosis or deformity SKIN: No rashes CENTRAL NERVOUS SYSTEM: No focal deficits, tone is normal in all 4 extremities. EXTREMITIES: There is no peripheral edema. No clubbing, no cyanosis. Peripheral pulses are intact. - Labs CBC & Chem 7: 02/14/23 04:35 02/14/23 04:35 Labs: Abnormal Lab Results - Last 24 Hours (Table) 02/14/23 02/14/23 Range/Units 04:35 04:35 WBC 20.86 H (4.50-10.00) X 10*3/uL RDW 14.7 H (11.5-14.5) % MPV 13.4 H (9.5-12.2) fL Absolute Nucleated RBC 0.02 H (0.00-0.00) X 10*3/uL Immature Gran # 0.23 H (0.00-0.04) X 10*3/uL Neutrophils # 16.46 H (1.80-7.70) X 10*3/uL Monocytes # 1.18 H (0.20-1.00) X 10*3/uL Eosinophils # 0 L (0.04-0.35) X 10*3/uL NRBC/100 WBC Diff 0.1 H (0.0-0.0) /100 WBCS Glucose 154 H (70-110) mg/dL Microbiology - Last 24 Hours (Table) 02/10/23 17:30 Blood Culture - Preliminary Blood 02/10/23 17:15 Blood Culture - Preliminary Blood 02/11/23 12:36 Gram Stain - Final Sputum Sputum Culture - Final Assessment and Plan Assessment: Suspected acute COPD exacerbation secondary to community-acquired pneumonia. Follow-up CoVID 19 19 screen negative. Pro-calcitonin 0.05. Follow-up chest x- ray showing improvement. Acute hypoxic respiratory failure secondary to above History of splenectomy Sjogren's Lupus Fibromyalgia Chronic nicotine dependence Plan: The patient was seen and evaluated Labs and medications reviewed Follow-up pro calcitonin remains negative Infectious diseases on the Continue bronchodilators Decrease steroids due to insomnia Titrate down the FiO2 as tolerated We will continue to follow I have personally seen and examined the patient, performed the documentation and the assessment and plan as written. Number of minutes spent on the visit: 10.
[2023-02-14] MEDS: MULTIVITAMINS, THERA 1 EACH TAB PO SCH (20:18)
[2023-02-14] MEDS: DOXYLAMINE SUCCINATE 25 MG PO SCH (20:18)
--- NOTE | 2023-02-14 21:21 | P.PN ---
Subjective This is a pleasant 57 results female who was admitted with respiratory distress and dyspnea and coughing secondary to acute COPD exacerbation also community acquired pneumonia with acute hypoxic respiratory failure Patient is being treated with ceftriaxone and Zithromax and submental 40 mg Patient states that she has more coughing today but she wants to keep that and declined antitussive medication because was to clear her chest. She still complaining from exertional dyspnea. She has leukocytosis secondary to steroid effect but no fever. Mildly tachycardic. CT of the chest showing negative for PE but that she got gross appearance CRP elevated both Protonix, codeine is normal at 0.05 and 0.08 Objective - Vital Signs Vital signs: Vital Signs Temp 97.8 F 02/14/23 07:16 Pulse 88 02/14/23 12:15 Resp 18 02/14/23 07:16 BP 143/78 02/14/23 07:16 Pulse Ox 96 02/14/23 08:27 FiO2 Intake & Output 02/13/23 02/14/23 02/14/23 18:59 06:59 18:59 Other: Voiding Method Toilet Toilet # Voids 4 2 - Exam -GENERAL: The patient is alert and oriented x3, not in any acute distress. Obese HEENT: Pupils are round and equally reacting to light. EOMI. No scleral icterus. No conjunctival pallor. Normocephalic, atraumatic. No pharyngeal erythema. No thyromegaly. CARDIOVASCULAR: S1 and S2 present. No murmurs, rubs, or gallops. -PULMONARY: Chest is clear to auscultation, bilateral expiratory wheezing . no crackles. ABDOMEN: Soft, nontender, nondistended, normoactive bowel sounds. No palpable organomegaly. MUSCULOSKELETAL: No joint swelling or deformity. EXTREMITIES: No cyanosis, clubbing, or pedal edema. NEUROLOGICAL: Gross neurological examination did not reveal any focal deficits. SKIN: No rashes. no petechiae. - Labs CBC & Chem 7: 02/14/23 04:35 02/14/23 04:35 Labs: Abnormal Lab Results - Last 24 Hours (Table) 02/14/23 02/14/23 Range/Units 04:35 04:35 WBC 20.86 H (4.50-10.00) X 10*3/uL RDW 14.7 H (11.5-14.5) % MPV 13.4 H (9.5-12.2) fL Absolute Nucleated RBC 0.02 H (0.00-0.00) X 10*3/uL Immature Gran # 0.23 H (0.00-0.04) X 10*3/uL Neutrophils # 16.46 H (1.80-7.70) X 10*3/uL Monocytes # 1.18 H (0.20-1.00) X 10*3/uL Eosinophils # 0 L (0.04-0.35) X 10*3/uL NRBC/100 WBC Diff 0.1 H (0.0-0.0) /100 WBCS Glucose 154 H (70-110) mg/dL Microbiology - Last 24 Hours (Table) 02/10/23 17:30 Blood Culture - Preliminary Blood 02/10/23 17:15 Blood Culture - Preliminary Blood 02/11/23 12:36 Gram Stain - Final Sputum Sputum Culture - Final Assessment and Plan Assessment: Acute COPD exacerbation Community acquired pneumonia Acute hypoxic respiratory failure Leukocytosis secondary to above Obesity with BMI of 39.7 Plan: Continue the steroids, IV salmeterol lower 40 mg continue with antibiotic with infectious disease on the case. Currently on Zithromax and ceftriaxone. Pulmonary team consult Continue with bronchodilator monitor leukocytosis We recommend patient follow up outpatient upon discharge with pulmonology and PCP Labs and medication were reviewed.. Continue same treatment. Continue with sym ptomatic treatment. Resume home medication. Monitor labs and vitals. DVT and GI prophylaxis. Further recommendations as per clinical course of the patient DVT prophylaxis: Subcutaneous heparin GI Prophylaxis: Pepcid Prognosis is guarded
[2023-02-14] MEDS: diphenhydrAMINE 25 MG CAP PO PRN (22:40)
[2023-02-15] MEDS: LEVOTHYROXINE 100 MCG TAB PO SCH (05:55)
[2023-02-15] MEDS: methylPREDNISolone SOD SUCCI 40 MG/ML 1 ML VIAL IV SCH ×4 (05:56→23:07)
[2023-02-15] MEDS: MAGNESIUM OXIDE 400 MG TAB PO SCH (08:18)
[2023-02-15] MEDS: MORPHINE SULFATE ER 30 MG TABLET PO SCH ×2 (08:18→20:40)
[2023-02-15] MEDS: oxyCODONE ER 10 MG TAB.ER.12H PO SCH ×2 (08:18→20:41)
[2023-02-15] MEDS: PREGABALIN 75 MG CAP PO SCH ×3 (08:18→20:41)
[2023-02-15] MEDS: ENOXAPARIN 40 MG/0.4 ML SYRINGE SQ SCH (08:18)
[2023-02-15] MEDS: ATORVASTATIN 20 MG TAB PO SCH (08:18)
[2023-02-15] MEDS: NICOTINE 21MG/24HR PATCH TRANSDERM SCH (08:18)
[2023-02-15] MEDS: METOPROLOL SUCCINATE (ER) 50 MG TAB.ER.24H PO SCH (08:18)
[2023-02-15] MEDS: DULoxetine HCL 60 MG CAPSULE.DR PO SCH (08:18)
[2023-02-15] MEDS: HYDROXYCHLOROQUINE SULFATE 200 MG TAB PO SCH ×2 (08:19→20:40)
--- NOTE | 2023-02-15 08:37 | P.PN ---
Subjective Progress Note Date: 02/14/23 Principal diagnosis: Pneumonia Patient is a 57-year-old female with a past medical history significant for fibromyalgia osteoarthritis history of pneumonia and also with history of splenectomy presenting to the ER for evaluation of increasing shortness of breath and cough, patient did have CT angiogram of the chest with groundglass opacity concerning for pneumonia. On today's evaluation that is 02/14/2023, the patient remains to be afebrile, the patient is currently breathing comfortably on 3 L nasal cannula oxygen patient denies having any chest pain the patient cough has decreased in intensity with no significant sputum production, the patient denies nausea no vomiting no abdominal pain or diarrhea Objective - Vital Signs Vital signs: Vital Signs Temp 97.9 F 02/14/23 13:52 Pulse 90 02/14/23 13:52 Resp 18 02/14/23 13:52 BP 148/86 02/14/23 13:52 Pulse Ox 95 02/14/23 13:52 FiO2 Intake & Output 02/13/23 02/14/23 02/14/23 18:59 06:59 18:59 Other: Voiding Method Toilet Toilet # Voids 4 2 - Exam GENERAL DESCRIPTION: Middle-aged female lying in bed in no distress RESPIRATORY SYSTEM: Unlabored breathing , coarse breath sounds bilaterally HEART: S1 S2 regular rate and rhythm , ABDOMEN: Soft , no tenderness EXTREMITIES: No edema feet - Labs CBC & Chem 7: 02/14/23 04:35 02/14/23 04:35 Labs: Abnormal Lab Results - Last 24 Hours (Table) 02/14/23 02/14/23 Range/Units 04:35 04:35 WBC 20.86 H (4.50-10.00) X 10*3/uL RDW 14.7 H (11.5-14.5) % MPV 13.4 H (9.5-12.2) fL Absolute Nucleated RBC 0.02 H (0.00-0.00) X 10*3/uL Immature Gran # 0.23 H (0.00-0.04) X 10*3/uL Neutrophils # 16.46 H (1.80-7.70) X 10*3/uL Monocytes # 1.18 H (0.20-1.00) X 10*3/uL Eosinophils # 0 L (0.04-0.35) X 10*3/uL NRBC/100 WBC Diff 0.1 H (0.0-0.0) /100 WBCS Glucose 154 H (70-110) mg/dL Microbiology - Last 24 Hours (Table) 02/10/23 17:30 Blood Culture - Preliminary Blood 02/10/23 17:15 Blood Culture - Preliminary Blood 02/11/23 12:36 Gram Stain - Final Sputum Sputum Culture - Final Assessment and Plan (1) Community acquired pneumonia Current Visit: Yes Status: Acute Code(s): J18.9 - PNEUMONIA, UNSPECIFIED ORGANISM SNOMED Code(s): 429893008 Plan: 1patient presented to hospital with increasing shortness of breath and cough symptom has been going on for 2-4 presented to the hospital and has been outpatient Zithromax therapy with multiple negative COVID testing patient did have a chest x-ray as well as CT suggested multifocal airspace disease suggestive of atypical infection. 2 sputum for Gram stain and culture so far negative, patient did have elevated CRP however procalcitonin level is normal. 3patient with abnormal CT suggestive of multifocal pneumonia with some clinical improvement, patient to continue with bronchodilator and steroids per pulmonary and a short course of antibiotics and monitor clinical course closely Time with Patient: Less than 30
[2023-02-15] MEDS: ALBUTEROL NEBULIZED 2.5 MG/3 ML INHALATION SCH ×4 (09:31→22:02)
[2023-02-15] MEDS: SYMBICORT 160-4.5 MCG INHALER INHALATION SCH ×2 (09:31→22:02)
[2023-02-15 10:29] LABS: HCT 39.7 % (37.2-46.3); MCHC 32.7 g/dL (32.0-37.0); MCV 91.5 fL (80.0-97.0); Mean Platelet Volume 13.3 fL (9.5-12.2); NRBC Per 100 WBC 0 /100 WBCS (0.0-0.0); Platelet Count 175 X 10*3/uL (140-440); RBC 4.34 X 10*6/uL (4.10-5.20); RDW 14.3 % (11.5-14.5); WBC 18.63 X 10*3/uL (4.50-10.00)
[2023-02-15 10:30] LABS: Basophils # (A) 0.02 X 10*3/uL (0.00-0.10); Basophils % (A) 0.1 %; Eosinophils # (A) 0 X 10*3/uL (0.04-0.35); Eosinophils % (A) 0 %; Immature Grans, Automated 0.6 %; Lymphocytes # (A) 3.76 X 10*3/uL (0.90-5.00); Lymphocytes % (A) 20.2 %; Monocytes % (A) 5.4 %; Neutrophils # (A) 13.73 X 10*3/uL (1.80-7.70); Neutrophils % (A) 73.7 %; RBC Morphology NORMAL
--- NOTE | 2023-02-15 11:51 | P.PN ---
Subjective Progress Note Date: 02/15/23 I'm seeing this patient in new consultation today 01/22/2023 for community- acquired pneumonia. Patient is a 57-year-old female with past medical history significant for splenectomy, fibromyalgia, lupus, Sjogren's, hypothyroidism, current 1 pack per day every day smoker. Patient presented to the emergency room yesterday with chief complaint of shortness of breath that started approximately 2 weeks ago. Patient was treated outpatient for bronchitis with a combination of steroids and a Z-Jules. Her PCP is Dr. Murdock. Patient's shortness breath has been worse over the last 2 days. There is an associated minimally productive cough. Patient denies any subjective fevers, chills, chest pain, hemoptysis. Denies sick contacts. Patient is currently sitting up in bed, on 3 L nasal cannula, in no acute distress. Lung sounds are bronchospastic with scattered rhonchi on auscultation. Patient's chest x-ray on arrival showed mild patchy and hazy infiltrates at the bilateral bases. Follow-up chest CTA showed no evidence of pulmonary embolism, and peripheral ground glass pulmonary opacities consistent with atypical pneumonia. Patient was negative for COVID- 19, influenza, RSV. Patient's CBC on arrival shows leukocytosis with a WBC count of 17.4, hemoglobin 14.2, hematocrit hematocrit 43, platelets 129,000. Patient's BMP was essentially unremarkable. Patient's troponins were negative 3. NT proBNP was low. Patient is on a combination of azithromycin and ceftriaxone for community acquired pneumonia. Patient is receiving a combination of bronchodilators and IV Solu-Medrol. Anticoagulated with Lovenox. Afebrile. Vital signs are stable this time. The patient is seen today 02/12/2023 in follow-up on the regular medical floor. She is slightly better today compared to yesterday. Still short of breath with minimal exertion. Still with a loose nonproductive cough. Maintaining O2 saturations in the 90s on 3 L/m per nasal cannula. Her pro-calcitonin is 0.08. Follow-up chest x-ray shows interstitial pneumonia versus atypical pneumonia. Overall improvement in appearance. Blood cultures pending. Sputum culture pending. Follow-up COVID-19 screen still negative. She remains on ceftriaxone and azithromycin. Continued on Symbicort and albuterol along with IV Solu-Medrol. NicoDerm patch in place. The patient is seen today 02/13/2023 in follow-up on the regular medical floor. She is sitting up in bed. Awake and alert in no acute distress. Follow-up chest x-ray is showing improvement in the interstitial pneumonia. She is feeling better today compared to yesterday. Maintaining O2 saturations in the high 90s on 3 L/m per nasal cannula. Afebrile. Hemodynamically stable. Blood culture pending. Sputum culture pending. Follow-up pro-calcitonin still negative at 0.05. White count 23.4. Hemoglobin 12.6. Sodium 141. Potassium 5.0. BUN 14.5. Creatinine 0.6. Glucose 132. She remains on ceftriaxone and azithromycin. Continue on Symbicort and albuterol. Remains on IV Solu-Medrol. NicoDerm patch is in place. The patient is seen today 02/14/2023 in follow-up on the regular medical floor. She remains awake and alert in no acute distress. She is doing about the same. She's been slow to progress. She is complaining of some insomnia most likely due to the steroids. She is maintaining O2 saturations in the 90s on 2 L/m per nasal cannula. She still has a loose cough. Still with some wheezing. She's been continued on Symbicort, albuterol, IV Solu-Medrol. Remains on ceftriaxone. Lovenox for DVT prophylaxis. NicoDerm patch in place. Blood cultures reveal no growth. Sputum culture revealed no growth. White count 20.8. Hemoglobin 13 .2. Platelets 167. Sodium 142. Potassium 5.0. Bicarb 23. BUN 12.3. Creatinine 0.7. Glucose 154. Pro-calcitonin 0.05. The patient is seen today 02/15/2023 in follow-up on the regular medical floor. She is sitting up in bed. Awake and alert in no acute distress. She continues to have a loose nonproductive cough. Still with some crackles and wheezing. She is better today compared to yesterday. Sputum culture reveals no growth. White count 18.6. Hemoglobin 13.0. Platelets 175. She remains on ceftriaxone. ID service is on the case. Continue on Symbicort, albuterol, IV Solu-Medrol. NicoDerm patch is in place. Lovenox for DVT prophylaxis. Objective - Vital Signs Vital signs: Vital Signs Temp 97.9 F 02/15/23 07:13 Pulse 88 02/15/23 10:05 Resp 18 02/15/23 07:13 BP 143/86 02/15/23 07:13 Pulse Ox 96 02/15/23 07:13 FiO2 Intake & Output 02/14/23 02/15/23 02/15/23 18:59 06:59 18:59 Intake Total 1080 Balance 1080 Intake: Oral 1080 Other: # Voids 3 2 - Exam GENERAL EXAM: Alert, pleasant 57-year-old female, on 2 L nasal cannula, comfortable in no apparent distress. HEAD: Normocephalic. EYES: Normal reaction of pupils, equal size. NOSE: Clear with pink turbinates. THROAT: No erythema or exudates. NECK: No masses, no JVD. CHEST: No chest wall deformity. LUNGS: Equal air entry with few scattered rhonchi bilaterally. CVS: S1 and S2 normal with no audible murmur, regular rhythm. ABDOMEN: No hepatosplenomegaly, normal bowel sounds, no guarding or rigidity. SPINE: No scoliosis or deformity SKIN: No rashes CENTRAL NERVOUS SYSTEM: No focal deficits, tone is normal in all 4 extremities. EXTREMITIES: There is no peripheral edema. No clubbing, no cyanosis. Peripheral pulses are intact. - Labs CBC & Chem 7: 02/15/23 06:01 02/14/23 04:35 Labs: Abnormal Lab Results - Last 24 Hours (Table) 02/15/23 Range/Units 06:01 WBC 18.63 H (4.50-10.00) X 10*3/uL MPV 13.3 H (9.5-12.2) fL Immature Gran # 0.12 H (0.00-0.04) X 10*3/uL Neutrophils # 13.73 H (1.80-7.70) X 10*3/uL Eosinophils # 0 L (0.04-0.35) X 10*3/uL Microbiology - Last 24 Hours (Table) 02/10/23 17:30 Blood Culture - Preliminary Blood 02/10/23 17:15 Blood Culture - Preliminary Blood Assessment and Plan Assessment: Suspected acute COPD exacerbation secondary to community-acquired pneumonia. Follow-up CoVID 19 19 screen negative. Pro-calcitonin 0.05. Acute hypoxic respiratory failure secondary to above History of splenectomy Sjogren's Lupus Fibromyalgia Chronic nicotine dependence Plan: The patient was seen and evaluated Labs and medications reviewed Follow-up pro calcitonin remains negative Titrate down the FiO2 as tolerated Follow-up chest x-ray in a.m. If no significant improvement may require bronchoscopy We will continue to follow I have personally seen and examined the patient, performed the documentation and the assessment and plan as written. Number of minutes spent on the visit: 10.
--- NOTE | 2023-02-15 17:01 | P.PN ---
Subjective This is a pleasant 57 results female who was admitted with respiratory distress and dyspnea and coughing secondary to acute COPD exacerbation also community acquired pneumonia with acute hypoxic respiratory failure Patient is being treated with ceftriaxone and Zithromax and submental 40 mg Patient states that she has more coughing today but she wants to keep that and declined antitussive medication because was to clear her chest. She still complaining from exertional dyspnea. She has leukocytosis secondary to steroid effect but no fever. Mildly tachycardic. CT of the chest showing negative for PE but that she got gross appearance CRP elevated both Protonix, codeine is normal at 0.05 and 0.08 01/29/2023 Patient dyspnea still not significantly improved although she feels little better than yesterday. Patient still wheezing and still with significant coughing She is sitting in bed most of the time She will be continued on ceftriaxone and Zithromax and salmeterol 40 mg every 6 hours Pulmonary team recommending bronchoalveolar lavage if no improvement Repeat chest x-ray in the morning Objective - Vital Signs Vital signs: Vital Signs Temp 97.9 F 02/15/23 07:13 Pulse 88 02/15/23 10:05 Resp 18 02/15/23 07:13 BP 143/86 02/15/23 07:13 Pulse Ox 96 02/15/23 07:13 FiO2 Intake & Output 02/14/23 02/15/23 02/15/23 18:59 06:59 18:59 Intake Total 1080 Balance 1080 Intake: Oral 1080 Other: # Voids 3 2 - Exam -GENERAL: The patient is alert and oriented x3, not in any acute distress. Obese HEENT: Pupils are round and equally reacting to light. EOMI. No scleral icterus. No conjunctival pallor. Normocephalic, atraumatic. No pharyngeal erythema. No thyromegaly. CARDIOVASCULAR: S1 and S2 present. No murmurs, rubs, or gallops. -PULMONARY: Chest is clear to auscultation, bilateral expiratory wheezing . no crackles. ABDOMEN: Soft, nontender, nondistended, normoactive bowel sounds. No palpable organomegaly. MUSCULOSKELETAL: No joint swelling or deformity. EXTREMITIES: No cyanosis, clubbing, or pedal edema. NEUROLOGICAL: Gross neurological examination did not reveal any focal deficits. SKIN: No rashes. no petechiae. - Labs CBC & Chem 7: 02/15/23 06:01 02/14/23 04:35 Labs: Abnormal Lab Results - Last 24 Hours (Table) 02/14/23 02/15/23 Range/Units 04:35 06:01 WBC 20.86 H 18.63 H (4.50-10.00) X 10*3/uL RDW 14.7 H (11.5-14.5) % MPV 13.4 H 13.3 H (9.5-12.2) fL Absolute Nucleated RBC 0.02 H (0.00-0.00) X 10*3/uL Immature Gran # 0.23 H 0.12 H (0.00-0.04) X 10*3/uL Neutrophils # 16.46 H 13.73 H (1.80-7.70) X 10*3/uL Monocytes # 1.18 H (0.20-1.00) X 10*3/uL Eosinophils # 0 L 0 L (0.04-0.35) X 10*3/uL NRBC/100 WBC Diff 0.1 H (0.0-0.0) /100 WBCS Microbiology - Last 24 Hours (Table) 02/10/23 17:30 Blood Culture - Preliminary Blood 02/10/23 17:15 Blood Culture - Preliminary Blood Assessment and Plan Assessment: Acute COPD exacerbation Community acquired pneumonia Acute hypoxic respiratory failure Leukocytosis secondary to above Obesity with BMI of 39.7 Plan: Continue the steroids, IV salmeterol lower 40 mg continue with antibiotic with infectious disease on the case. Currently on Z ithromax and ceftriaxone. Pulmonary team consult Continue with bronchodilator monitor leukocytosis We recommend patient follow up outpatient upon discharge with pulmonology and PCP Labs and medication were reviewed.. Continue same treatment. Continue with symptomatic treatment. Resume home medication. Monitor labs and vitals. DVT and GI prophylaxis. Further recommendations as per clinical course of the patient DVT prophylaxis: Subcutaneous heparin GI Prophylaxis: Pepcid Prognosis is guarded
[2023-02-15] MEDS: MULTIVITAMINS, THERA 1 EACH TAB PO SCH (20:41)
[2023-02-15] MEDS: DOXYLAMINE SUCCINATE 25 MG PO SCH (20:58)
--- NOTE | 2023-02-15 23:00 | P.PN ---
Subjective Progress Note Date: 02/15/23 Principal diagnosis: Pneumonia Patient is a 57-year-old female with a past medical history significant for fibromyalgia osteoarthritis history of pneumonia and also with history of splenectomy presenting to the ER for evaluation of increasing shortness of breath and cough, patient did have CT angiogram of the chest with groundglass opacity concerning for pneumonia. On today's evaluation that is 02/15/2023, the patient continues to be afebrile, the patient is currently breathing comfortably on 2 L nasal cannula oxygen, and the patient denies having any chest pain the patient cough has decreased in intensity with occasional sputum production, the patient denies nausea no vomiting no abdominal pain or diarrhea Objective - Vital Signs Vital signs: Vital Signs Temp 97.9 F 02/15/23 07:13 Pulse 71 02/15/23 07:13 Resp 18 02/15/23 07:13 BP 143/86 02/15/23 07:13 Pulse Ox 96 02/15/23 07:13 FiO2 Intake & Output 02/14/23 02/15/23 02/15/23 18:59 06:59 18:59 Intake Total 1080 Balance 1080 Intake: Oral 1080 Other: # Voids 3 2 - Exam GENERAL DESCRIPTION: Middle-aged female lying in bed in no distress RESPIRATORY SYSTEM: Unlabored breathing , coarse breath sounds bilaterally HEART: S1 S2 regular rate and rhythm , ABDOMEN: Soft , no tenderness EXTREMITIES: No edema feet - Labs CBC & Chem 7: 02/15/23 06:01 02/14/23 04:35 Labs: Abnormal Lab Results - Last 24 Hours (Table) 02/14/23 02/14/23 Range/Units 04:35 04:35 WBC 20.86 H (4.50-10.00) X 10*3/uL RDW 14.7 H (11.5-14.5) % MPV 13.4 H (9.5-12.2) fL Absolute Nucleated RBC 0.02 H (0.00-0.00) X 10*3/uL Immature Gran # 0.23 H (0.00-0.04) X 10*3/uL Neutrophils # 16.46 H (1.80-7.70) X 10*3/uL Monocytes # 1.18 H (0.20-1.00) X 10*3/uL Eosinophils # 0 L (0.04-0.35) X 10*3/uL NRBC/100 WBC Diff 0.1 H (0.0-0.0) /100 WBCS Glucose 154 H (70-110) mg/dL Microbiology - Last 24 Hours (Table) 02/10/23 17:30 Blood Culture - Preliminary Blood 02/10/23 17:15 Blood Culture - Preliminary Blood Assessment and Plan (1) Community acquired pneumonia Current Visit: Yes Status: Acute Code(s): J18.9 - PNEUMONIA, UNSPECIFIED ORGANISM SNOMED Code(s): 960925396 Plan: 1patient presented to hospital with increasing shortness of breath and cough symptom has been going on for 2-4 presented to the hospital and has been outpatient Zithromax therapy with multiple negative COVID testing patient did have a chest x-ray as well as CT suggested multifocal airspace disease suggestive of atypical infection. 2 sputum for Gram stain and culture so far negative, patient did have elevated CRP however procalcitonin level is normal. 3patient with abnormal CT suggestive of multifocal pneumonia patient is slowly clinically improving, patient to continue with bronchodilator and steroids per pulmonary and continue with Rocephin sputum has been repeated results will be followed and monitor clinical course closely Time with Patient: Less than 30
[2023-02-15] MEDS: diphenhydrAMINE 25 MG CAP PO PRN (23:07)
[2023-02-16] MEDS: LEVOTHYROXINE 100 MCG TAB PO SCH (05:05)
[2023-02-16] MEDS: methylPREDNISolone SOD SUCCI 40 MG/ML 1 ML VIAL IV SCH ×2 (05:05→11:44)
--- NOTE | 2023-02-16 07:55 | XR ---
EXAMINATION TYPE: XR chest 2V DATE OF EXAM: 02/16/2023 7:02 AM COMPARISON: Chest radiographs from 02/13/2023 TECHNIQUE: XR chest 2V Frontal and lateral views of the chest. CLINICAL INDICATION:Female, 57 years old with history of Atypical pneumonia; FINDINGS: Lungs/Pleura: No pleural effusion or pneumothorax. Decreased patchy airspace opacities within the alon ateral lower lungs from prior examination. Pulmonary vascularity: Unremarkable. Heart/mediastinum: Cardiomediastinal silhouette is unremarkable. Musculoskeletal: No acute osseous pathology. Cervical fusion hardware. Degenerative changes visualize d spine. IMPRESSION: Decreased patchy airspace opacities within the bilateral lower lungs.
[2023-02-16] MEDS: HYDROXYCHLOROQUINE SULFATE 200 MG TAB PO SCH ×2 (08:35→21:15)
[2023-02-16] MEDS: oxyCODONE ER 10 MG TAB.ER.12H PO SCH ×2 (08:35→21:14)
[2023-02-16] MEDS: NICOTINE 21MG/24HR PATCH TRANSDERM SCH (08:35)
[2023-02-16] MEDS: ENOXAPARIN 40 MG/0.4 ML SYRINGE SQ SCH (08:36)
[2023-02-16] MEDS: PREGABALIN 75 MG CAP PO SCH ×3 (08:36→21:15)
[2023-02-16] MEDS: DULoxetine HCL 60 MG CAPSULE.DR PO SCH (08:36)
[2023-02-16] MEDS: METOPROLOL SUCCINATE (ER) 50 MG TAB.ER.24H PO SCH (08:36)
[2023-02-16] MEDS: MAGNESIUM OXIDE 400 MG TAB PO SCH (08:36)
[2023-02-16] MEDS: MORPHINE SULFATE ER 30 MG TABLET PO SCH ×2 (08:36→21:15)
[2023-02-16] MEDS: ATORVASTATIN 20 MG TAB PO SCH (08:36)
[2023-02-16] MEDS: ALBUTEROL NEBULIZED 2.5 MG/3 ML INHALATION SCH ×4 (08:48→21:00)
[2023-02-16] MEDS: SYMBICORT 160-4.5 MCG INHALER INHALATION SCH ×2 (08:48→21:00)
[2023-02-16 11:06] LABS: Basophils # (A) 0.02 X 10*3/uL (0.00-0.10); Basophils % (A) 0.1 %; Eosinophils # (A) 0 X 10*3/uL (0.04-0.35); Eosinophils % (A) 0 %; HCT 42.5 % (37.2-46.3); HGB 13.7 g/dL (12.0-15.0); Immature Grans, Automated 0.7 %; Lymphocytes # (A) 3.06 X 10*3/uL (0.90-5.00); Lymphocytes % (A) 20.2 %; MCH 29.3 pg (27.0-32.0); MCHC 32.2 g/dL (32.0-37.0); MCV 90.8 fL (80.0-97.0); Monocytes # (A) 0.94 X 10*3/uL (0.20-1.00); Monocytes % (A) 6.2 %; NRBC Per 100 WBC 0 /100 WBCS (0.0-0.0); Neutrophils # (A) 11.03 X 10*3/uL (1.80-7.70); Neutrophils % (A) 72.8 %; Platelet Count 227 X 10*3/uL (140-440); RBC 4.68 X 10*6/uL (4.10-5.20); RDW 14.2 % (11.5-14.5); WBC 15.16 X 10*3/uL (4.50-10.00)
[2023-02-16 11:12] LABS: African American GFR (CKD) 110.7 (60.0-200.0); Anion Gap 14.1 mmol/L (10.00-18.00); Blood Urea Nitrogen 19.6 mg/dL (9.0-27.0); Calcium 9.2 mg/dL (8.7-10.3); Carbon Dioxide 25.9 mmol/L (20.0-27.5); Non-African American GFR(CKD) 95.5 (60.0-200.0); Potassium 4.5 mmol/L (3.5-5.5)
--- NOTE | 2023-02-16 13:17 | P.PN ---
Subjective This is a pleasant 57 results female who was admitted with respiratory distress and dyspnea and coughing secondary to acute COPD exacerbation also community acquired pneumonia with acute hypoxic respiratory failure Patient is being treated with ceftriaxone and Zithromax and submental 40 mg Patient states that she has more coughing today but she wants to keep that and declined antitussive medication because was to clear her chest. She still complaining from exertional dyspnea. She has leukocytosis secondary to steroid effect but no fever. Mildly tachycardic. CT of the chest showing negative for PE but that she got gross appearance CRP elevated both Protonix, codeine is normal at 0.05 and 0.08 01/29/2023 Patient dyspnea still not significantly improved although she feels little better than yesterday. Patient still wheezing and still with significant coughing She is sitting in bed most of the time She will be continued on ceftriaxone and Zithromax and salmeterol 40 mg every 6 hours Pulmonary team recommending bronchoalveolar lavage if no improvement Repeat chest x-ray in the morning 02/16/2023 Patient states that her dyspnea is improving. Patient is still SIGNIFICANT coughing. She still declines any cough medicine. She still have wheezing but that is improving as well Her vitals are stable. Leukocytosis improving Patient qualify for home oxygen, discussed the immigration case worker Patient repeat chest x-ray showing decreased patchy opacity in the lung bases, claim benefit specialist her by myself and agree with his findings. Patient remains on ceftriaxone and Zithromax, submental 40 mg every 6 hours. Objective - Vital Signs Vital signs: Vital Signs Temp 97.8 F 02/16/23 06:44 Pulse 84 02/16/23 12:20 Resp 18 02/16/23 06:44 BP 137/81 02/16/23 06:44 Pulse Ox 83 L 02/16/23 10:50 FiO2 Intake & Output 02/15/23 02/16/23 02/16/23 18:59 06:59 18:59 Intake Total 1080 Balance 1080 Intake: Oral 1080 Other: # Voids 3 4 # Bowel Movements 1 - Exam -GENERAL: The patient is alert and oriented x3, not in any acute distress. Obese HEENT: Pupils are round and equally reacting to light. EOMI. No scleral icterus. No conjunctival pallor. Normocephalic, atraumatic. No pharyngeal erythema. No thyromegaly. CARDIOVASCULAR: S1 and S2 present. No murmurs, rubs, or gallops. -PULMONARY: Chest is clear to auscultation, bilateral expiratory wheezing . no crackles. ABDOMEN: Soft, nontender, nondistended, normoactive bowel sounds. No palpable organomegaly. MUSCULOSKELETAL: No joint swelling or deformity. EXTREMITIES: No cyanosis, clubbing, or pedal edema. NEUROLOGICAL: Gross neurological examination did not reveal any focal deficits. SKIN: No rashes. no petechiae. - Labs CBC & Chem 7: 02/16/23 07:22 02/16/23 07:22 Labs: Abnormal Lab Results - Last 24 Hours (Table) 02/16/23 02/16/23 Range/Units 07:22 07:22 WBC 15.16 H (4.50-10.00) X 10*3/uL MPV 13.0 H (9.5-12.2) fL Immature Gran # 0.11 H (0.00-0.04) X 10*3/uL Neutrophils # 11.03 H (1.80-7.70) X 10*3/uL Eosinophils # 0 L (0.04-0.35) X 10*3/uL BUN/Creatinine Ratio 28.00 H (12.00-20.00) Ratio Microbiology - Last 24 Hours (Table) 02/14/23 20:34 Gram Stain - Preliminary Sputum Sputum Culture - Preliminary Natasha albicans 02/10/23 17:30 Blood Culture - Final Blood 02/10/23 17:15 Blood Culture - Final Blood Assessment and Plan Assessment: Acute COPD exacerbation Community acquired pneumonia Acute hypoxic respiratory failure Leukocytosis secondary to above Obesity with BMI of 39.7 Plan: Continue the steroids, IV Solu-Medrol 40 mg continue with antibiotic with infectious disease on the case. Currently on Zithromax and ceftriaxone. Pulmonary team consult Continue with bronchodilator monitor leukocytosis We recommend patient follow up outpatient upon discharge with pulmonology and PCP Labs and medication were reviewed.. Continue same treatment. Continue with symptomatic treatment. Resume home medication. Monitor labs and vitals. DVT and GI prophylaxis. Further recommendations as per clinical course of the patient DVT prophylaxis: Subcutaneous heparin GI Prophylaxis: Pepcid Prognosis is guarded
--- NOTE | 2023-02-16 15:54 | P.PN ---
Subjective Progress Note Date: 02/16/23 I'm seeing this patient in new consultation today 01/22/2023 for community- acquired pneumonia. Patient is a 57-year-old female with past medical history significant for splenectomy, fibromyalgia, lupus, Sjogren's, hypothyroidism, current 1 pack per day every day smoker. Patient presented to the emergency room yesterday with chief complaint of shortness of breath that started approximately 2 weeks ago. Patient was treated outpatient for bronchitis with a combination of steroids and a Z-Jules. Her PCP is Dr. Murdock. Patient's shortness breath has been worse over the last 2 days. There is an associated minimally productive cough. Patient denies any subjective fevers, chills, chest pain, hemoptysis. Denies sick contacts. Patient is currently sitting up in bed, on 3 L nasal cannula, in no acute distress. Lung sounds are bronchospastic with scattered rhonchi on auscultation. Patient's chest x-ray on arrival showed mild patchy and hazy infiltrates at the bilateral bases. Follow-up chest CTA showed no evidence of pulmonary embolism, and peripheral ground glass pulmonary opacities consistent with atypical pneumonia. Patient was negative for COVID- 19, influenza, RSV. Patient's CBC on arrival shows leukocytosis with a WBC count of 17.4, hemoglobin 14.2, hematocrit hematocrit 43, platelets 129,000. Patient's BMP was essentially unremarkable. Patient's troponins were negative 3. NT proBNP was low. Patient is on a combination of azithromycin and ceftriaxone for community acquired pneumonia. Patient is receiving a combination of bronchodilators and IV Solu-Medrol. Anticoagulated with Lovenox. Afebrile. Vital signs are stable this time. The patient is seen today 02/12/2023 in follow-up on the regular medical floor. She is slightly better today compared to yesterday. Still short of breath with minimal exertion. Still with a loose nonproductive cough. Maintaining O2 saturations in the 90s on 3 L/m per nasal cannula. Her pro-calcitonin is 0.08. Follow-up chest x-ray shows interstitial pneumonia versus atypical pneumonia. Overall improvement in appearance. Blood cultures pending. Sputum culture pending. Follow-up COVID-19 screen still negative. She remains on ceftriaxone and azithromycin. Continued on Symbicort and albuterol along with IV Solu-Medrol. NicoDerm patch in place. The patient is seen today 02/13/2023 in follow-up on the regular medical floor. She is sitting up in bed. Awake and alert in no acute distress. Follow-up chest x-ray is showing improvement in the interstitial pneumonia. She is feeling better today compared to yesterday. Maintaining O2 saturations in the high 90s on 3 L/m per nasal cannula. Afebrile. Hemodynamically stable. Blood culture pending. Sputum culture pending. Follow-up pro-calcitonin still negative at 0.05. White count 23.4. Hemoglobin 12.6. Sodium 141. Potassium 5.0. BUN 14.5. Creatinine 0.6. Glucose 132. She remains on ceftriaxone and azithromycin. Continue on Symbicort and albuterol. Remains on IV Solu-Medrol. NicoDerm patch is in place. The patient is seen today 02/14/2023 in follow-up on the regular medical floor. She remains awake and alert in no acute distress. She is doing about the same. She's been slow to progress. She is complaining of some insomnia most likely due to the steroids. She is maintaining O2 saturations in the 90s on 2 L/m per nasal cannula. She still has a loose cough. Still with some wheezing. She's been continued on Symbicort, albuterol, IV Solu-Medrol. Remains on ceftriaxone. Lovenox for DVT prophylaxis. NicoDerm patch in place. Blood cultures reveal no growth. Sputum culture revealed no growth. White count 20.8. Hemoglobin 13 .2. Platelets 167. Sodium 142. Potassium 5.0. Bicarb 23. BUN 12.3. Creatinine 0.7. Glucose 154. Pro-calcitonin 0.05. The patient is seen today 02/15/2023 in follow-up on the regular medical floor. She is sitting up in bed. Awake and alert in no acute distress. She continues to have a loose nonproductive cough. Still with some crackles and wheezing. She is better today compared to yesterday. Sputum culture reveals no growth. White count 18.6. Hemoglobin 13.0. Platelets 175. She remains on ceftriaxone. ID service is on the case. Continue on Symbicort, albuterol, IV Solu-Medrol. NicoDerm patch is in place. Lovenox for DVT prophylaxis. The patient is seen today 02/16/2023 in follow-up on the regular medical floor. She is currently awake and alert in no acute distress. Sitting up in bed. Improved today compared to yesterday. Feeling nearly back to her baseline. Fo llow-up chest x-ray reveals decreased patchy airspace opacities in the bilateral lower lungs. He is maintaining good O2 saturations in the mid 90s on 2 L/m per nasal cannula. She does desaturate to 83% during a 6 minute walk on room air. Qualify for home oxygen. Blood cultures revealed no growth. Sputum culture revealed no growth. White count 15.1. Hemoglobin 13.7. Platelets 227. Sodium 141. Potassium 4.5. Bicarb 26. BUN 20. Creatinine 0.7. She is continued on Symbicort, albuterol, IV Solu-Medrol. Lovenox for DVT prophylaxis. NicoDerm patch in place. Empiric antibiotics in the form of ceftriaxone. Objective - Vital Signs Vital signs: Vital Signs Temp 97.9 F 02/16/23 14:57 Pulse 76 02/16/23 14:57 Resp 20 02/16/23 14:57 BP 122/79 02/16/23 14:57 Pulse Ox 95 02/16/23 14:57 FiO2 Intake & Output 02/15/23 02/16/23 02/16/23 18:59 06:59 18:59 Intake Total 1080 Balance 1080 Intake: Oral 1080 Other: # Voids 3 4 # Bowel Movements 1 - Exam GENERAL EXAM: Alert, pleasant 57-year-old female, sitting comfortably in bed, on 2 L nasal cannula, in no apparent distress. HEAD: Normocephalic. EYES: Normal reaction of pupils, equal size. NOSE: Clear with pink turbinates. THROAT: No erythema or exudates. NECK: No masses, no JVD. CHEST: No chest wall deformity. LUNGS: Equal air entry with few scattered rhonchi bilaterally. CVS: S1 and S2 normal with no audible murmur, regular rhythm. ABDOMEN: No hepatosplenomegaly, normal bowel sounds, no guarding or rigidity. SPINE: No scoliosis or deformity SKIN: No rashes CENTRAL NERVOUS SYSTEM: No focal deficits, tone is normal in all 4 extremities. EXTREMITIES: There is no peripheral edema. No clubbing, no cyanosis. Peripheral pulses are intact. - Labs CBC & Chem 7: 02/16/23 07:22 02/16/23 07:22 Labs: Abnormal Lab Results - Last 24 Hours (Table) 02/16/23 02/16/23 Range/Units 07:22 07:22 WBC 15.16 H (4.50-10.00) X 10*3/uL MPV 13.0 H (9.5-12.2) fL Immature Gran # 0.11 H (0.00-0.04) X 10*3/uL Neutrophils # 11.03 H (1.80-7.70) X 10*3/uL Eosinophils # 0 L (0.04-0.35) X 10*3/uL BUN/Creatinine Ratio 28.00 H (12.00-20.00) Ratio Microbiology - Last 24 Hours (Table) 02/14/23 20:34 Gram Stain - Preliminary Sputum Sputum Culture - Preliminary Natasha albicans 02/10/23 17:30 Blood Culture - Final Blood 02/10/23 17:15 Blood Culture - Final Blood Assessment and Plan Assessment: Suspected acute COPD exacerbation secondary to atypical pneumonia. Follow-up CoVID 19 screen negative. Pro-calcitonin 0.08 and a repeat of 0.05. Acute hypoxic respiratory failure secondary to above History of splenectomy Sjogren's Lupus Fibromyalgia Chronic nicotine dependence Plan: The patient was seen and evaluated Chest x-ray, labs and medications reviewed Cleared for discharge from the pulmonary standpoint Evaluate for possible home oxygen Complete a prednisone taper Antibiotics per ID services Follow-up in the office in 1 week I have personally seen and examined the patient, performed the documentation and the assessment and plan as written. Number of minutes spent on the visit: 10.
[2023-02-16] MEDS: DOXYLAMINE SUCCINATE 25 MG PO SCH (21:08)
[2023-02-16] MEDS: MULTIVITAMINS, THERA 1 EACH TAB PO SCH (21:15)
--- NOTE | 2023-02-16 22:04 | P.PN ---
Subjective Progress Note Date: 02/16/23 Principal diagnosis: Pneumonia Patient is a 57-year-old female with a past medical history significant for fibromyalgia osteoarthritis history of pneumonia and also with history of splenectomy presenting to the ER for evaluation of increasing shortness of breath and cough, patient did have CT angiogram of the chest with groundglass opacity concerning for pneumonia. On today's evaluation that is 02/16/2023, the patient remains to be afebrile, the patient is breathing comfortably on 2 L nasal cannula oxygen, and the patient denies having any chest pain the patient cough has decreased in intensity and less sputum production, the patient denies nausea no vomiting no abdominal pain or diarrhea Objective - Vital Signs Vital signs: Vital Signs Temp 97.8 F 02/16/23 06:44 Pulse 84 02/16/23 12:20 Resp 18 02/16/23 06:44 BP 137/81 02/16/23 06:44 Pulse Ox 83 L 02/16/23 10:50 FiO2 Intake & Output 02/15/23 02/16/23 02/16/23 18:59 06:59 18:59 Intake Total 1080 Balance 1080 Intake: Oral 1080 Other: # Voids 3 4 # Bowel Movements 1 - Exam GENERAL DESCRIPTION: Middle-aged female lying in bed in no distress RESPIRATORY SYSTEM: Unlabored breathing , coarse breath sounds bilaterally HEART: S1 S2 regular rate and rhythm , ABDOMEN: Soft , no tenderness EXTREMITIES: No edema feet - Labs CBC & Chem 7: 02/16/23 07:22 02/16/23 07:22 Labs: Abnormal Lab Results - Last 24 Hours (Table) 02/16/23 02/16/23 Range/Units 07:22 07:22 WBC 15.16 H (4.50-10.00) X 10*3/uL MPV 13.0 H (9.5-12.2) fL Immature Gran # 0.11 H (0.00-0.04) X 10*3/uL Neutrophils # 11.03 H (1.80-7.70) X 10*3/uL Eosinophils # 0 L (0.04-0.35) X 10*3/uL BUN/Creatinine Ratio 28.00 H (12.00-20.00) Ratio Microbiology - Last 24 Hours (Table) 02/10/23 17:30 Blood Culture - Final Blood 02/10/23 17:15 Blood Culture - Final Blood 02/14/23 20:34 Gram Stain - Preliminary Sputum Sputum Culture - Preliminary Assessment and Plan (1) Community acquired pneumonia Current Visit: Yes Status: Acute Code(s): J18.9 - PNEUMONIA, UNSPECIFIED ORGANISM SNOMED Code(s): 453723711 Plan: 1patient presented to hospital with increasing shortness of breath and cough symptom has been going on for 2-4 presented to the hospital and has been outpatient Zithromax therapy with multiple negative COVID testing patient did have a chest x-ray as well as CT suggested multifocal airspace disease suggestive of atypical infection. 2 sputum for Gram stain and culture so far negative, patient did have elevated CRP however procalcitonin level is normal. 3patient with abnormal CT suggestive of multifocal pneumonia patient is slowly clinically improving, patient is afebrile white count started 15,000, patient to continue with bronchodilator and steroids per pulmonary and continue with Rocephin, the patient repeat sputum is growing Natasha likely colonizer Time with Patient: Less than 30
[2023-02-16] MEDS: diphenhydrAMINE 25 MG CAP PO PRN (22:46)
[2023-02-17 02:31] VITALS: RESP 17; TEMP 97.7
[2023-02-17] MEDS: LEVOTHYROXINE 100 MCG TAB PO SCH (06:32)
[2023-02-17 07:23] VITALS: BP 105/73
[2023-02-17] MEDS: DULoxetine HCL 60 MG CAPSULE.DR PO SCH (08:05)
[2023-02-17] MEDS: ENOXAPARIN 40 MG/0.4 ML SYRINGE SQ SCH (08:05)
[2023-02-17] MEDS: HYDROXYCHLOROQUINE SULFATE 200 MG TAB PO SCH (08:05)
[2023-02-17] MEDS: ATORVASTATIN 20 MG TAB PO SCH (08:05)
[2023-02-17] MEDS: PREGABALIN 75 MG CAP PO SCH ×2 (08:06→16:34)
[2023-02-17] MEDS: MAGNESIUM OXIDE 400 MG TAB PO SCH (08:06)
[2023-02-17] MEDS: oxyCODONE ER 10 MG TAB.ER.12H PO SCH (08:06)
[2023-02-17] MEDS: METOPROLOL SUCCINATE (ER) 50 MG TAB.ER.24H PO SCH (08:06)
[2023-02-17] MEDS: MORPHINE SULFATE ER 30 MG TABLET PO SCH (08:07)
[2023-02-17] MEDS: NICOTINE 21MG/24HR PATCH TRANSDERM SCH (08:09)
[2023-02-17] MEDS: ALBUTEROL NEBULIZED 2.5 MG/3 ML INHALATION SCH ×3 (08:18→15:38)
[2023-02-17] MEDS: SYMBICORT 160-4.5 MCG INHALER INHALATION SCH (08:18)
[2023-02-17] MEDS ORDERED: predniSONE 20 MG TAB PO SCH (09:00)
--- NOTE | 2023-02-17 12:38 | P.PN ---
Subjective Progress Note Date: 02/17/23 I'm seeing this patient in new consultation today 01/22/2023 for community- acquired pneumonia. Patient is a 57-year-old female with past medical history significant for splenectomy, fibromyalgia, lupus, Sjogren's, hypothyroidism, current 1 pack per day every day smoker. Patient presented to the emergency room yesterday with chief complaint of shortness of breath that started approximately 2 weeks ago. Patient was treated outpatient for bronchitis with a combination of steroids and a Z-Jules. Her PCP is Dr. Murdock. Patient's shortness breath has been worse over the last 2 days. There is an associated minimally productive cough. Patient denies any subjective fevers, chills, chest pain, hemoptysis. Denies sick contacts. Patient is currently sitting up in bed, on 3 L nasal cannula, in no acute distress. Lung sounds are bronchospastic with scattered rhonchi on auscultation. Patient's chest x-ray on arrival showed mild patchy and hazy infiltrates at the bilateral bases. Follow-up chest CTA showed no evidence of pulmonary embolism, and peripheral ground glass pulmonary opacities consistent with atypical pneumonia. Patient was negative for COVID- 19, influenza, RSV. Patient's CBC on arrival shows leukocytosis with a WBC count of 17.4, hemoglobin 14.2, hematocrit hematocrit 43, platelets 129,000. Patient's BMP was essentially unremarkable. Patient's troponins were negative 3. NT proBNP was low. Patient is on a combination of azithromycin and ceftriaxone for community acquired pneumonia. Patient is receiving a combination of bronchodilators and IV Solu-Medrol. Anticoagulated with Lovenox. Afebrile. Vital signs are stable this time. The patient is seen today 02/12/2023 in follow-up on the regular medical floor. She is slightly better today compared to yesterday. Still short of breath with minimal exertion. Still with a loose nonproductive cough. Maintaining O2 saturations in the 90s on 3 L/m per nasal cannula. Her pro-calcitonin is 0.08. Follow-up chest x-ray shows interstitial pneumonia versus atypical pneumonia. Overall improvement in appearance. Blood cultures pending. Sputum culture pending. Follow-up COVID-19 screen still negative. She remains on ceftriaxone and azithromycin. Continued on Symbicort and albuterol along with IV Solu-Medrol. NicoDerm patch in place. The patient is seen today 02/13/2023 in follow-up on the regular medical floor. She is sitting up in bed. Awake and alert in no acute distress. Follow-up chest x-ray is showing improvement in the interstitial pneumonia. She is feeling better today compared to yesterday. Maintaining O2 saturations in the high 90s on 3 L/m per nasal cannula. Afebrile. Hemodynamically stable. Blood culture pending. Sputum culture pending. Follow-up pro-calcitonin still negative at 0.05. White count 23.4. Hemoglobin 12.6. Sodium 141. Potassium 5.0. BUN 14.5. Creatinine 0.6. Glucose 132. She remains on ceftriaxone and azithromycin. Continue on Symbicort and albuterol. Remains on IV Solu-Medrol. NicoDerm patch is in place. The patient is seen today 02/14/2023 in follow-up on the regular medical floor. She remains awake and alert in no acute distress. She is doing about the same. She's been slow to progress. She is complaining of some insomnia most likely due to the steroids. She is maintaining O2 saturations in the 90s on 2 L/m per nasal cannula. She still has a loose cough. Still with some wheezing. She's been continued on Symbicort, albuterol, IV Solu-Medrol. Remains on ceftriaxone. Lovenox for DVT prophylaxis. NicoDerm patch in place. Blood cultures reveal no growth. Sputum culture revealed no growth. White count 20.8. Hemoglobin 13 .2. Platelets 167. Sodium 142. Potassium 5.0. Bicarb 23. BUN 12.3. Creatinine 0.7. Glucose 154. Pro-calcitonin 0.05. The patient is seen today 02/15/2023 in follow-up on the regular medical floor. She is sitting up in bed. Awake and alert in no acute distress. She continues to have a loose nonproductive cough. Still with some crackles and wheezing. She is better today compared to yesterday. Sputum culture reveals no growth. White count 18.6. Hemoglobin 13.0. Platelets 175. She remains on ceftriaxone. ID service is on the case. Continue on Symbicort, albuterol, IV Solu-Medrol. NicoDerm patch is in place. Lovenox for DVT prophylaxis. The patient is seen today 02/16/2023 in follow-up on the regular medical floor. She is currently awake and alert in no acute distress. Sitting up in bed. Improved today compared to yesterday. Feeling nearly back to her baseline. Fo llow-up chest x-ray reveals decreased patchy airspace opacities in the bilateral lower lungs. He is maintaining good O2 saturations in the mid 90s on 2 L/m per nasal cannula. She does desaturate to 83% during a 6 minute walk on room air. Qualify for home oxygen. Blood cultures revealed no growth. Sputum culture revealed no growth. White count 15.1. Hemoglobin 13.7. Platelets 227. Sodium 141. Potassium 4.5. Bicarb 26. BUN 20. Creatinine 0.7. She is continued on Symbicort, albuterol, IV Solu-Medrol. Lovenox for DVT prophylaxis. NicoDerm patch in place. Empiric antibiotics in the form of ceftriaxone. Patient is seen today 02/17/2023 in follow-up on the regular medical floor. Sitting up in bed. Awake and alert in no acute distress. Feeling back to her baseline. Still with just a dry nonproductive cough currently. His maintaining good O2 saturations in the 90s on 2 L/m per nasal cannula. Blood cultures revealed no growth. Sputum culture revealed no growth. No new labs today. His been maintained on Symbicort, albuterol, prednisone taper. Antibiotics in the form of ceftriaxone. Lovenox for DVT prophylaxis. NicoDerm patch in place. Objective - Vital Signs Vital signs: Vital Signs Temp 97.7 F 02/17/23 07:22 Pulse 84 02/17/23 12:06 Resp 17 02/17/23 07:22 BP 105/73 02/17/23 07:22 Pulse Ox 92 L 02/17/23 08:20 FiO2 Intake & Output 02/16/23 02/17/23 02/17/23 18:59 06:59 18:59 Other: Voiding Method Toilet # Voids 2 - Exam GENERAL EXAM: Alert, 57-year-old female, on 2 L nasal cannula, in no apparent distress. HEAD: Normocephalic. EYES: Normal reaction of pupils, equal size. NOSE: Clear with pink turbinates. THROAT: No erythema or exudates. NECK: No masses, no JVD. CHEST: No chest wall deformity. LUNGS: Equal air entry with few scattered rhonchi bilaterally. CVS: S1 and S2 normal with no audible murmur, regular rhythm. ABDOMEN: No hepatosplenomegaly, normal bowel sounds, no guarding or rigidity. SPINE: No scoliosis or deformity SKIN: No rashes CENTRAL NERVOUS SYSTEM: No focal deficits, tone is normal in all 4 extremities. EXTREMITIES: There is no peripheral edema. No clubbing, no cyanosis. P eripheral pulses are intact. - Labs CBC & Chem 7: 02/16/23 07:22 02/16/23 07:22 Labs: Microbiology - Last 24 Hours (Table) 02/14/23 20:34 Gram Stain - Final Sputum Sputum Culture - Final Natasha albicans 02/10/23 17:30 Blood Culture - Final Blood 02/10/23 17:15 Blood Culture - Final Blood Assessment and Plan Assessment: Suspected acute COPD exacerbation secondary to atypical pneumonia. Follow-up CoVID 19 screen negative. Pro-calcitonin 0.08 and a repeat of 0.05. Acute hypoxic respiratory failure secondary to above History of splenectomy Sjogren's Lupus Fibromyalgia Chronic nicotine dependence Plan: The patient was seen and evaluated Medications reviewed Cleared for discharge from the pulmonary standpoint Evaluate for possible home oxygen Complete a prednisone taper Antibiotics per ID services Again educated regarding the importance of complete smoking cessation Follow-up in the office in 1 week I have personally seen and examined the patient, performed the documentation and the assessment and plan as written. Number of minutes spent on the visit: 10.
[2023-02-17 13:25] VITALS: BMI 39.7
[2023-02-17 15:50] VITALS: PULSE 88
--- NOTE | 2023-02-17 16:18 | P.PN ---
Subjective Progress Note Date: 02/17/23 Principal diagnosis: Pneumonia Patient is a 57-year-old female with a past medical history significant for fibromyalgia osteoarthritis history of pneumonia and also with history of splenectomy presenting to the ER for evaluation of increasing shortness of breath and cough, patient did have CT angiogram of the chest with groundglass opacity concerning for pneumonia. On today's evaluation that is 02/17/2023, the patient continues to be afebrile, the patient is breathing comfortably on 2 L nasal cannula oxygen, and the patient denies chest pain the patient cough has decreased in intensity and mostly dry in nature, the patient denies nausea no vomiting no abdominal pain or diarrhea Objective - Vital Signs Vital signs: Vital Signs Temp 97.7 F 02/17/23 07:22 Pulse 84 02/17/23 12:06 Resp 17 02/17/23 07:22 BP 105/73 02/17/23 07:22 Pulse Ox 92 L 02/17/23 08:20 FiO2 Intake & Output 02/16/23 02/17/23 02/17/23 18:59 06:59 18:59 Weight 113.398 kg Other: Voiding Method Toilet # Voids 2 - Exam GENERAL DESCRIPTION: Middle-aged female lying in bed in no distress RESPIRATORY SYSTEM: Unlabored breathing , coarse breath sounds bilaterally HEART: S1 S2 regular rate and rhythm , ABDOMEN: Soft , no tenderness EXTREMITIES: No edema feet - Labs CBC & Chem 7: 02/16/23 07:22 02/16/23 07:22 Labs: Microbiology - Last 24 Hours (Table) 02/14/23 20:34 Gram Stain - Final Sputum Sputum Culture - Final Natasha albicans 02/10/23 17:30 Blood Culture - Final Blood 02/10/23 17:15 Blood Culture - Final Blood Assessment and Plan (1) Community acquired pneumonia Current Visit: Yes Status: Acute Code(s): J18.9 - PNEUMONIA, UNSPECIFIED ORGANISM SNOMED Code(s): 273304345 Plan: 1patient presented to hospital with increasing shortness of breath and cough symptom has been going on for 2-4 presented to the hospital and has been outpatient Zithromax therapy with multiple negative COVID testing patient did have a chest x-ray as well as CT suggested multifocal airspace disease suggestive of atypical infection. 2 sputum for Gram stain and culture so far negative, patient did have elevated CRP however procalcitonin level is normal. 3patient with abnormal CT suggestive of multifocal pneumonia patient is slowly clinically improving, patient is afebrile , the patient's sputum cultures have been negative for any resistant pathogen overall improvement on Rocephin we will give a short course of oral Ceftin on discharge and close patient follow-up Time with Patient: Less than 30
--- NOTE | 2023-02-18 00:01 | P.DS ---
Providers Date of admission: 02/10/23 16:51 Attending physician: Jose J Carpenter Consults: 02/10/23 16:50 Consult Physician Routine Consulting Provider: Elizabeth Gillespie Consult Reason/Comments: hypoxia Do you want consulting provider notified?: Yes 02/11/23 13:10 Consult Physician Routine Consulting Provider: Raisa Finnegan Consult Reason/Comments: pneumonia Do you want consulting provider notified?: Yes Primary care physician: Gricelda Murdock Hospital Course: Diagnoses, Acute COPD exacerbation Community acquired pneumonia Acute hypoxic respiratory failure Leukocytosis secondary to above Obesity with BMI of 39.7 Hospital course: This is a pleasant 57 results female who was admitted with respiratory distress and dyspnea and coughing secondary to acute COPD exacerbation also community acquired pneumonia with acute hypoxic respiratory failure. Patient was treated with antibiotics of gentamicin and Zithromax and ampicillin medical breech patient showed interval improvement in her dyspnea for significantly improved Today patient back close to her baseline and she denies any new symptoms. Patient is she can go home today Patient evaluated and she holds she requires and qualify for home oxygen Patient was cleared for discharge by milking worker Patient was discharged on tapering steroids and antibiotic Problems and management plan were discussed with the patient and he verbalized understanding and acceptance Patient was found stable and can be discharged home in guarded prognosis however he needs follow-up as an outpatient. Patient was instructed to follow up with PCP Dr. Mittal within one week and patient agrees Patient was started to follow-up with Dr. Mendoza in 1-2 weeks and she agrees Physical exam Gen: patient is a AAOx3, no distress CVS: S1-S2, RRR, no murmur -Lungs: B/L CTA, no wheezing. Patient with nasal cannula for oxygen Abdomen: soft, no distention, no tenderness, positive bowel sounds Extremity: no leg edema or induration Time spent more than 35 minutes Patient Condition at Discharge: Serious Plan - Discharge Summary New Discharge Prescriptions: New cefUROXime axetiL [Ceftin] 500 mg PO BID 5 Days #10 tab Nicotine 21Mg/24Hr Patch [Habitrol] 1 patch TRANSDERM DAILY #5 patch predniSONE 10 mg PO DIRECTED #40 tab Continue oxyCODONE HCL [OxyCONTIN] 10 mg PO Q12H Morphine Sulfate [Ms Contin] 30 mg PO BID Hydroxychloroquine Sulfate [Plaquenil] 200 mg PO BID DULoxetine HCL [Cymbalta] 60 mg PO DAILY Doxylamine Succinate [Unisom] 50 mg PO HS Atorvastatin [Lipitor] 20 mg PO DAILY Levothyroxine Sodium [Synthroid] 100 mcg PO DAILY Ascorbic Acid [Vitamin C] 1,000 mg PO DAILY Vitamin B Complex 1 cap PO DAILY Magnesium 250 mg PO DAILY Metoprolol Succinate (ER) [Toprol XL] 50 mg PO DAILY #30 tab Multivit-Min/Iron/Folic/Lutein [Centrum Silver Women Tablet] 1 tab PO HS Pregabalin [Lyrica] 150 mg PO TID Albuterol Inhaler [Ventolin Hfa Inhaler] 2 puff INHALATION RT-QID PRN PRN Reason: Shortness Of Breath Discharge Medication List Ascorbic Acid [Vitamin C] 1,000 mg PO DAILY 03/22/20 [History] Atorvastatin [Lipitor] 20 mg PO DAILY 03/22/20 [History] DULoxetine HCL [Cymbalta] 60 mg PO DAILY 03/22/20 [History] Doxylamine Succinate [Unisom] 50 mg PO HS 03/22/20 [History] Hydroxychloroquine Sulfate [Plaquenil] 200 mg PO BID 03/22/20 [History] Levothyroxine Sodium [Synthroid] 100 mcg PO DAILY 03/22/20 [History] Magnesium 250 mg PO DAILY 03/22/20 [History] Morphine Sulfate [Ms Contin] 30 mg PO BID 03/22/20 [History] Vitamin B Complex 1 cap PO DAILY 03/22/20 [History] oxyCODONE HCL [OxyCONTIN] 10 mg PO Q12H 03/22/20 [History] Metoprolol Succinate (ER) [Toprol XL] 50 mg PO DAILY #30 tab 03/28/20 [Rx] Pregabalin [Lyrica] 150 mg PO TID 02/18/21 [History] Albuterol Inhaler [Ventolin Hfa Inhaler] 2 puff INHALATION RT-QID PRN 02/10/23 [History] Multivit-Min/Iron/Folic/Lutein [Centrum Silver Women Tablet] 1 tab PO HS 02/10/23 [History] Nicotine 21Mg/24Hr Patch [Habitrol] 1 patch TRANSDERM DAILY #5 patch 02/17/23 [Rx] cefUROXime axetiL [Ceftin] 500 mg PO BID 5 Days #10 tab 02/17/23 [Rx] predniSONE 10 mg PO DIRECTED #40 tab 02/17/23 [Rx] Follow up Appointment(s)/Referral(s): Law Johnson MD [STAFF PHYSICIAN] - 03/11/23 9:15 am Gricelda Murdock MD [Primary Care Provider] - 02/24/23 2:15 pm Patient Instructions/Handouts: How to Stop Smoking (ED), COPD (Chronic Obstructive Pulmonary Disease) (DC) Activity/Diet/Wound Care/Special Instructions: O2 ordered through [facility]'s [phone] Discharge Disposition: HOME SELF-CARE
== END 2023-02-17 17:04 | disposition home or self-care (01) | DRG 193 ==
LOC: EC 14:36 → 4SSUR 16:51
PROVIDERS: ADMIT Hospitalist; ATTEND Hospitalist
DX: J18.9 Pneumonia, unspecified organism (principal); J96.01 Acute respiratory failure with hypoxia; J44.0 Chronic obstructive pulmonary disease with (acute) lower respiratory infection; J44.1 Chronic obstructive pulmonary disease with (acute) exacerbation; M35.00 Sjogren syndrome, unspecified; M79.7 Fibromyalgia; T38.0X5A Adverse effect of glucocorticoids and synthetic analogues, initial encounter; M32.9 Systemic lupus erythematosus, unspecified; E03.9 Hypothyroidism, unspecified; G47.00 Insomnia, unspecified; Z20.822 Contact with and (suspected) exposure to COVID-19; Z68.39 Body mass index [BMI] 39.0-39.9, adult; E66.9 Obesity, unspecified; F17.210 Nicotine dependence, cigarettes, uncomplicated; Z87.01 Personal history of pneumonia (recurrent); Z79.899 Other long term (current) drug therapy; Z79.890 Hormone replacement therapy; Z90.81 Acquired absence of spleen; Z71.3 Dietary counseling and surveillance; Z98.1 Arthrodesis status
CPT/HCPCS: 36415; 71045; 71046; 71275; 80048; 80053; 83880; 84145; 84484; 85025; 85379; 85610; 85730; 86140; 86738; 87070; 87205; 87636; 93005; 94640; 94760; 96361; 96365; 99285

== ENCOUNTER → 2023-03-25 | Outpatient (CLI) | payer MEDICARE ==
--- NOTE | 2023-03-26 20:13 | MM ---
Reason for Exam: Screening (asymptomatic). Last mammogram was performed 3 year(s) and 6 month(s) ago. Patient History: Menarche at age 12. First Full-Term at age 34. Late child-bearing (after 29). Left ovary removed at age 42. Right ovary removed at age 42. Hysterectomy at age 42. Postmenopausal. Estrogen, starting at age 42 for 4 years. Hormonal Contraceptives for 20 years from age 13 until age 33. Sister had breast cancer, age 43. Risk Values: Maribel 5 year model risk: 2.7%. NCI Lifetime model risk: 14.9%. Prior Study Comparison: 09/08/2018 Bilateral Screening Mammogram, [facility]. 09/23/2019 Bilateral Screening Mammogram, [facility]. 10/06/2019 Bilateral Diagnostic Mammogram, [facility]. Tissue Density: The breast tissue is heterogeneously dense. This may lower the sensitivity of mammography. Findings: Analyzed By CAD. Benign oil cyst calcifications on the left. There is no suspicious group of microcalcifications or new suspicious mass in either breast. Overall Assessment: Benign, BI-RAD 2 Management: Screening Mammogram of both breasts in 1 year. . Patient should continue monthly self-breast exams. A clinical breast exam by your physician is recommended on an annual basis. This exam should not preclude additional follow-up of suspicious palpable abnormalities. Note on Maribel scores and lifetime risk: 1. A Maribel score greater than 3% is considered moderate risk. If this is the case, consider specialist referral to assess eligibility for a risk reducing agent. 2. If overall lifetime risk for the development of breast cancer is 20% or higher, the patient may qualify for future screening with alternating mammogram and breast MRI. Electronically signed and approved by: Vince Knott M.D. Radiologist
== END | disposition home or self-care (01) ==
LOC: RADMAMWWP 14:39
PROVIDERS: ATTEND Family Medicine
DX: Z12.31 Encounter for screening mammogram for malignant neoplasm of breast (principal); Z80.3 Family history of malignant neoplasm of breast; Z78.0 Asymptomatic menopausal state
CPT/HCPCS: 77063; 77067

== ENCOUNTER → 2023-05-21 | Outpatient (CLI) | payer MEDICARE ==
--- NOTE | 2023-05-21 15:21 | MR ---
EXAMINATION TYPE: MR lumbar spine wo con DATE OF EXAM: 05/21/2023 1:16 PM COMPARISON: 10/14/2021. CLINICAL INDICATION: Female, 57 years old with history of M54.50 M47.816 M19.90; PHH, Severe lower ba ck pain, Lumbago TECHNIQUE: Multi planar, multi sequence imaging was performed utilizing: T1-weighted, T2-weighted, a nd turbo inversion recovery imaging of the lumbar spine. IV Contrast: None. FINDINGS: Alignment: The lumbar vertebral bodies have preserved heights and alignment. Cord: The conus medullaris and the distal spinal cord appear unremarkable with regards to their signa l intensity and morphology. Bones/Discs: Postsurgical change with hardware at L5-S1. Mild osteophyte formation throughout the spi ne. Disc space narrowing worse at L5-S1. Facet joint arthropathy seen throughout the spine. T12-L1: No evidence of significant spinal canal stenosis or neural foraminal stenosis. L1-L2: No evidence of significant spinal canal stenosis or neural foraminal stenosis. L2-L3: Disc bulge and facet joint arthropathy result in mild spinal canal and mild bilateral neural f oraminal stenosis. L3-L4: Disc bulge and facet joint arthropathy result in moderate to severe spinal canal and moderate bilateral neural foraminal stenosis. L4-L5: Susceptibility artifact limits evaluation. No evidence of significant spinal canal stenosis or neural foraminal stenosis. L5-S1: Susceptibility artifact limits evaluation. The disc is rounded posterior morphology without si gnificant spinal canal stenosis. Facet joint arthropathy with mild neural foraminal stenosis. No significant spinal canal or neural foraminal stenosis in the remainder of the visualized levels. Other findings: None. IMPRESSION: 1. L3-L4 moderate to severe spinal canal stenosis and moderate bilateral neural foraminal stenosis. This is progressed from prior in 2020. 2. Postsurgical change at L4 and L5. No evidence for significant spinal canal or neural foraminal st enosis at L5-S1. 3. Mild multilevel disc degeneration changes.
== END | disposition home or self-care (01) ==
LOC: RADMRIMAIN 12:02
PROVIDERS: ATTEND Psychiatry & Neurology Neurology
DX: M47.816 Spondylosis without myelopathy or radiculopathy, lumbar region (principal); M99.73 Connective tissue and disc stenosis of intervertebral foramina of lumbar region; M51.36 Other intervertebral disc degeneration, lumbar region
CPT/HCPCS: 72148

== ENCOUNTER 2023-08-19 16:58 | Emergency (ER) | payer MEDICARE ==
[2023-08-19 17:09] VITALS: TEMP 98.1
--- NOTE | 2023-08-19 20:04 | XR ---
EXAMINATION TYPE: XR chest 2V DATE OF EXAM: 08/19/2023 COMPARISON: 02/16/2003 INDICATION: Difficulty breathing short of breath TECHNIQUE: Single frontal view of the chest is obtained. FINDINGS: The heart size is normal. The pulmonary vasculature is normal. The lungs are clear. IMPRESSION: 1. No acute pulmonary process.
[2023-08-19 20:14] LABS: HCT 49.9 % (34.0-46.0); HGB 16.6 gm/dL (11.4-16.0); MCH 30.5 pg (25.0-35.0); MCHC 33.3 g/dL (31.0-37.0); MCV 91.6 fL (80.0-100.0); Mean Platelet Volume 10.1; Platelet Count 216 k/uL (150-450); RBC 5.45 m/uL (3.80-5.40); RDW 13.4 % (11.5-15.5); WBC 18.3 k/uL (3.8-10.6)
[2023-08-19 20:44] LABS: ALT 28 U/L (4-34); AST 42 U/L (14-36); African American GFR (CKD) 72 (>60 ml/min/1.73 sqM); Albumin 4.9 g/dL (3.5-5.0); Alkaline Phosphatase 126 U/L (38-126); Anion Gap 15 mmol/L; Blood Urea Nitrogen 23 mg/dL (7-17); Calcium 10.3 mg/dL (8.4-10.2); Carbon Dioxide 26 mmol/L (22-30); Chloride 98 mmol/L (98-107); Glucose 72 mg/dL (74-99); Non-African American GFR(CKD) 63 (>60 ml/min/1.73 sqM); Potassium 4.3 mmol/L (3.5-5.1); Sodium 139 mmol/L (137-145)
[2023-08-19 20:56] LABS: Eosinophils # (M) 0.55 k/uL (0-0.7); Lymphocytes # (M) 6.22 k/uL (1.0-4.8); Monocytes # (M) 1.65 k/uL (0-1.0); Neutrophils # (M) 9.88 k/uL (1.3-7.7); Neutrophils % (M) 54 %; Nucleated Red Blood Cells 0 /100 WBC (0-0); Total Cells Counted 100
[2023-08-19] MEDS ORDERED: DEXAMETHASONE SOD PHOSPHATE 10 MG/ML 1 ML VIAL IM STA (21:25)
[2023-08-19] MEDS ORDERED: IPRATROPIUM-ALBUTEROL 3 ML NEB INHALATION STA (21:25)
--- NOTE | 2023-08-19 21:32 | ED ---
General Adult HPI - General Chief complaint: Shortness of Breath Stated complaint: INOCENCIO Time Seen by Provider: 08/19/23 20:59 Source: patient Mode of arrival: ambulatory Limitations: physical limitation - History of Present Illness Initial comments: Dictation was produced using [employer] dictation software. please excuse any grammatical, word or spelling errors. Chief Complaint: 58-year-old female presents emergency department for a couple weeks of dyspnea History of Present Illness: Patient is 58-year-old female with past surgical h istory of COPD presents to the ER for 1-2 weeks of dyspnea. Patient states she's had a wheeze cough or proximally to most 3 weeks. She states that she is worried that she has a recurrence of the lung pneumonia which she experienced in February of this year. Patient has oxygen at home. She does not wear a daily. She was given oxygen treatment after a bout of the lung pneumonia earlier this year. She has not needed it for the last couple months. Started to wear oxygen at home. She states she checked her oxygen which is 90% which is why she started wearing the oxygen and patient does have a painter mirror. Denies any fever constitutional symptoms. The ROS documented in this emergency department record has been reviewed and confirmed by me. Those systems with pertinent positive or negative responses have been documented in the HPI. All other systems are other negative and/or noncontributory. - Related Data Home Medications Medication Instructions Recorded Confirmed Ascorbic Acid [Vitamin C] 1,000 mg PO DAILY 03/22/20 02/10/23 Atorvastatin [Lipitor] 20 mg PO DAILY 03/22/20 02/10/23 DULoxetine HCL [Cymbalta] 60 mg PO DAILY 03/22/20 02/10/23 Doxylamine Succinate [Unisom] 50 mg PO HS 03/22/20 02/10/23 Hydroxychloroquine Sulfate 200 mg PO BID 03/22/20 02/10/23 [Plaquenil] Levothyroxine Sodium [Synthroid] 100 mcg PO DAILY 03/22/20 02/10/23 Magnesium 250 mg PO DAILY 03/22/20 02/10/23 Morphine Sulfate [Ms Contin] 30 mg PO BID 03/22/20 02/10/23 Vitamin B Complex 1 cap PO DAILY 03/22/20 02/10/23 oxyCODONE HCL [OxyCONTIN] 10 mg PO Q12H 03/22/20 02/10/23 Pregabalin [Lyrica] 150 mg PO TID 02/18/21 02/10/23 Albuterol Inhaler [Ventolin Hfa 2 puff INHALATION RT-QID PRN 02/10/23 02/10/23 Inhaler] Multivit-Min/Iron/Folic/Lutein 1 tab PO HS 02/10/23 02/10/23 [Centrum Silver Women Tablet] Previous Rx's Medication Instructions Recorded Metoprolol Succinate (ER) [Toprol 50 mg PO DAILY #30 tab 03/28/20 XL] Nicotine 21Mg/24Hr Patch [Habitrol] 1 patch TRANSDERM DAILY #5 patch 02/17/23 cefUROXime axetiL [Ceftin] 500 mg PO BID 5 Days #10 tab 02/17/23 predniSONE 10 mg PO DIRECTED #40 tab 02/17/23 Azithromycin [Zithromax Z Pack] 1 tab PO DIRECTED #6 tab 08/20/23 Allergies Allergy/AdvReac Type Severity Reaction Status Date / Time Androgenic Anabolic Steroid AdvReac Unknown Verified 08/19/23 17:03 Antihistamines - Alkylamine AdvReac Unknown Verified 08/19/23 17:03 Review of Systems ROS Statement: Those systems with pertinent positive or pertinent negative responses have been documented in the HPI. ROS Other: All systems not noted in ROS Statement are negative. Past Medical History Past Medical History: Fibromyalgia, Osteoarthritis (OA), Pneumonia, Thyroid Disorder Additional Past Medical History / Comment(s): migraines, "racing" heart rate, varicose veins, ulcer, lupus, sjogrens, thrombocytopeia, sinus issues History of Any Multi-Drug Resistant Organisms: None Reported Past Surgical History: Back Surgery, Hysterectomy, Tonsillectomy Additional Past Surgical History / Comment(s): spleenectomy, laparaoscy, alon cataracts with lens implants, cervical fusion x 2, lumbar fusion, alon carpal tunnel, rt leg "ablation" for a leak in a vein, Past Anesthesia/Blood Transfusion Reactions: No Reported Reaction Past Psychological History: No Psychological Hx Reported Smoking Status: Current every day smoker - Past Family History Mother Family Medical History: Cancer Additional Family Medical History / Comment(s): colon General Exam - General Exam Comments Initial Comments: PHYSICAL EXAM: General Impression: Alert and oriented x3, not in acute distress HEENT: Normocephalic atraumatic, extra-ocular movements intact, pupils equal and reactive to light bilaterally, mucous membranes moist. Cardiovascular: Heart regular rate and rhythm Chest: Able to complete full sentences, no retractions, diffuse lung wheezing Abdomen: abdomen soft, non-tender, non-distended, no organomegaly Musculoskeletal: Pulses present and equal in all extremities, no peripheral edema Motor: no focal deficits noted Neurological: CN II-XII grossly intact, no focal motor or sensory deficits noted Skin: Intact with no visualized rashes Psych: Normal affect and mood Limitations: physical limitation Course Vital Signs 08/19/23 08/19/23 08/19/23 17:00 21:53 22:02 Temperature 98.1 F Pulse Rate 82 83 66 Respiratory 16 Rate Blood Pressure 125/81 O2 Sat by Pulse 93 L Oximetry 08/20/23 00:00 Temperature Pulse Rate 76 Respiratory 18 Rate Blood Pressure 116/64 O2 Sat by Pulse 97 Oximetry EKG Findings - EKG Comments: EKG Findings:: My EKG interpretation: Ventricular rate 76, sinus rhythm, CO interval 136, QRS 87, QTc 47. No CO prolongation, no QTC prolongation, no ST or T-wave changes noted. Overall, this EKG is unremarkable Medical Decision Making - Medical Decision Making Was pt. sent in by a medical professional or institution (KARIME Buckley, [employer] OPERATOR, urgent care, hospital, or [facility]...) When possible be specific @ -No Did you speak to anyone other than the patient for history (EMS, parent, family, police, friend...)? What history was obtained from this source @ -No Did you review nursing and triage notes (agree or disagree)? Why? @ -I reviewed and agree with nursing and triage notes Were old charts reviewed (outside hosp., previous admission, EMS record, old EKG, old radiological studies, urgent care reports/EKG's, [facility] records)? Report findings @ -No old charts were reviewed Differential Diagnosis (chest pain, altered mental status, abdominal pain women, abdominal pain men, vaginal bleeding, musculoskeletal, weakness, fever, dyspnea, syncope, headache, dizziness, GI bleed, back pain, seizure, CVA, palpatations, mental health)? @ -Differential Dyspnea: Coronary syndrome, arrhythmia, tamponade, asthma, COPD, pulmonary embolism, pneumonia, pneumothorax, pulmonary effusion, anaphylaxis, diabetic ketoacidosis, flailed chest, pulmonary contusion, diaphragmatic rupture, anemia, neuromuscular, this is not meant to be an all-inclusive list. EKG interpreted by me (3pts min.). @ -See above X-rays interpreted by me (1pt min.). @ -Two-view chest x-ray is negative for any acute processes CT interpreted by me (1pt min.). @ -None done U/S interpreted by me (1pt. min.). @ -None done What testing was considered but not performed or refused? (CT, X-rays, U/S, labs)? Why? @ -None What meds were considered but not given or refused? Why? @ -None Did you discuss the management of the patient with other professionals (professionals i.e. , PA, ETHY[employer]E PL[employer] OPERATOR, lab, RT, psych nurse, social and political studies professor, traffic supervisor, teacher, community reinvestment act officer, protective services case worker)? Give summary @ -No Was smoking cessation discussed for >3mins.? @ -No Was critical care preformed (if so, how long)? @ -No Were there social determinants of health that impacted care today? How? (Homelessness, low income, unemployed, alcoholism, drug addiction, transportation, low edu. Level, literacy, decrease access to med. care, nursing home, rehab)? @ -No Was there de-escalation of care discussed even if they declined (Discuss DNR or withdrawal of care, Hospice)? DNR status @ -No What co-morbidities impacted this encounter? (DM, HTN, Smoking, COPD, CAD, Cancer, CVA, ARF, Chemo, Hep., AIDS, mental health diagnosis, sleep apnea, morbid obesity)? @ -None Was patient admitted / discharged? Hospital course, mention meds given and route, prescriptions, significant lab abnormalities, going to OR and other pertinent info. @ -58-year-old female presents emergency Department with chief complaint of dyspnea and concerns of recurrent double pneumonia. She has a history of COPD. Vital signs are stable. Patient has some wheezing. X-rays negative. She does have a leukocytosis of 18.3 of unclear significance. She states that she states that this is probably from her history of vitamin immune disease. Labs are otherwise unremarkable. Disposition options were discussed she feels significantly better after breathing treatment and Decadron. Patient is agreeable discharged to follow-up with primary care doctor. Patient given prescription for Z-Jules. Undiagnosed new problem with uncertain prognosis? @ -No Drug Therapy requiring intensive monitoring for toxicity (Heparin, Nitro, Insulin, Cardizem)? @ -No Were any procedures done? @ -No Diagnosis/symptom? Acute, or Chronic, or Acute on Chronic? Uncomplicated (without systemic symptoms) or Complicated (systemic symptoms)? @ -COPD exacerbation Side effects of treatment? @ -No Exacerbation, Progression, or Severe Exacerbation? @ -No Poses a threat to life or bodily function? How? (Chest pain, [place], [place], pneumonia, PE, COPD, DKA, ARF, appy, cholecystitis, CVA, Diverticulitis, Homicidal, Suicidal, threat to staff... and all critical care pts) @ -yes - Lab Data Result diagrams: 08/19/23 20:00 08/19/23 20:00 Lab Results 08/19/23 08/19/23 08/19/23 Range/Units 20:00 20:00 20:00 WBC 18.3 H (3.8-10.6) k/uL RBC 5.45 H (3.80-5.40) m/uL Hgb 16.6 H (11.4-16.0) gm/dL Hct 49.9 H (34.0-46.0) % MCV 91.6 (80.0-100.0) fL MCH 30.5 (25.0-35.0) pg MCHC 33.3 (31.0-37.0) g/dL RDW 13.4 (11.5-15.5) % Plt Count 216 (150-450) k/uL MPV 10.1 Neutrophils % (Manual) 54 % Lymphocytes % (Manual) 34 % Monocytes % (Manual) 9 % Eosinophils % (Manual) 3 % Neutrophils # (Manual) 9.88 H (1.3-7.7) k/uL Lymphocytes # (Manual) 6.22 H (1.0-4.8) k/uL Monocytes # (Manual) 1.65 H (0-1.0) k/uL Eosinophils # (Manual) 0.55 (0-0.7) k/uL Nucleated RBCs 0 (0-0) /100 WBC Manual Slide Review Performed PT (10.0-12.5) sec INR (<1.2) APTT (22.0-30.0) sec Sodium 139 (137-145) mmol/L Potassium 4.3 (3.5-5.1) mmol/L Chloride 98 (98-107) mmol/L Carbon Dioxide 26 (22-30) mmol/L Anion Gap 15 mmol/L BUN 23 H (7-17) mg/dL Creatinine 0.99 (0.52-1.04) mg/dL Est GFR (CKD-EPI)AfAm 72 (>60 ml/min/1.73 sqM) Est GFR (CKD-EPI)NonAf 63 (>60 ml/min/1.73 sqM) Glucose 72 L (74-99) mg/dL Calcium 10.3 H (8.4-10.2) mg/dL Total Bilirubin 1.0 (0.2-1.3) mg/dL AST 42 H (14-36) U/L ALT 28 (4-34) U/L Alkaline Phosphatase 126 (38-126) U/L Troponin I <0.012 (0.000-0.034) ng/mL Total Protein 8.0 (6.3-8.2) g/dL Albumin 4.9 (3.5-5.0) g/dL Influenza Type A (PCR) (Not Detectd) Influenza Type B (PCR) (Not Detectd) RSV (PCR) (Not Detectd) SARS-CoV-2 (PCR) (Not Detectd) 08/19/23 08/19/23 Range/Units 21:10 22:47 WBC (3.8-10.6) k/uL RBC (3.80-5.40) m/uL Hgb (11.4-16.0) gm/dL Hct (34.0-46.0) % MCV (80.0-100.0) fL MCH (25.0-35.0) pg MCHC (31.0-37.0) g/dL RDW (11.5-15.5) % Plt Count (150-450) k/uL MPV Neutrophils % (Manual) % Lymphocytes % (Manual) % Monocytes % (Manual) % Eosinophils % (Manual) % Neutrophils # (Manual) (1.3-7.7) k/uL Lymphocytes # (Manual) (1.0-4.8) k/uL Monocytes # (Manual) (0-1.0) k/uL Eosinophils # (Manual) (0-0.7) k/uL Nucleated RBCs (0-0) /100 WBC Manual Slide Review PT 10.2 (10.0-12.5) sec INR 0.9 (<1.2) APTT 23.6 (22.0-30.0) sec Sodium (137-145) mmol/L Potassium (3.5-5.1) mmol/L Chloride (98-107) mmol/L Carbon Dioxide (22-30) mmol/L Anion Gap mmol/L BUN (7-17) mg/dL Creatinine (0.52-1.04) mg/dL Est GFR (CKD-EPI)AfAm (>60 ml/min/1.73 sqM) Est GFR (CKD-EPI)NonAf (>60 ml/min/1.73 sqM) Glucose (74-99) mg/dL Calcium (8.4-10.2) mg/dL Total Bilirubin (0.2-1.3) mg/dL AST (14-36) U/L ALT (4-34) U/L Alkaline Phosphatase (38-126) U/L Troponin I (0.000-0.034) ng/mL Total Protein (6.3-8.2) g/dL Albumin (3.5-5.0) g/dL Influenza Type A (PCR) Not Detected (Not Detectd) Influenza Type B (PCR) Not Detected (Not Detectd) RSV (PCR) Not Detected (Not Detectd) SARS-CoV-2 (PCR) Not Detected (Not Detectd) Disposition Clinical Impression: COPD exacerbation Disposition: HOME SELF-CARE Condition: Fair Instructions (If sedation given, give patient instructions): COPD (Chronic Obstructive Pulmonary Disease) (ED) Prescriptions: Azithromycin [Zithromax Z Pack] 1 tab PO DIRECTED #6 tab Is patient prescribed a controlled substance at d/c from ED?: No Referrals: Gricelda Murdock MD [Primary Care Provider] - 1-2 days Time of Disposition: 00:25
[2023-08-19 23:57] LABS: INR 0.9 (<1.2); Partial Thromboplastin Time 23.6 sec (22.0-30.0); Prothrombin Time 10.2 sec (10.0-12.5)
[2023-08-20] MEDS ORDERED: AZITHROMYCIN 500 MG TAB PO STA (00:18)
[2023-08-20 00:21] VITALS: BP 116/64; PULSE 76; RESP 18
== END 2023-08-20 00:45 | disposition home or self-care (01) ==
LOC: EC 16:58
DX: J44.1 Chronic obstructive pulmonary disease with (acute) exacerbation (principal); E07.9 Disorder of thyroid, unspecified; I25.2 Old myocardial infarction; F17.200 Nicotine dependence, unspecified, uncomplicated; Z79.890 Hormone replacement therapy; Z20.822 Contact with and (suspected) exposure to COVID-19; Z88.8 Allergy status to other drugs, medicaments and biological substances
CPT/HCPCS: 99285; 96372; 36415; 93005; 80053; 84484; 85025; 85610; 85730; 87636; 71046; J1100

== ENCOUNTER → 2023-08-28 | Outpatient (CLI) | payer MEDICARE ==
--- NOTE | 2023-08-30 14:58 | MR ---
EXAMINATION TYPE: MR hip RT wo con DATE OF EXAM: 08/28/2023 COMPARISON: MRI right hip February 25, 2019 HISTORY: Right hip pain and limited movement for 5 years Standard multiplanar, multisequence MRI departmental protocol Multiplanar, multisequence images of the pelvis focus in the right hip were acquired without contrast . FINDINGS: There is now susceptibility artifact from metallic prosthesis in the left hip which is new from the prior MRI. There is persistent serpiginous T1 signal in the superior aspect of the right fem oral head with adjacent serpiginous increased T2 signal consistent with avascular necrosis. No bony f ragmentation is identified. There is persistent moderate axial joint space loss in the right hip. The re is tiny right hip joint effusion redemonstrated which is presumed physiologic. Rounded femoral hea d shape is maintained. Mild edema level of the greater trochanter is redemonstrated similar to the pr ior consistent with an insertional tendinosis. Muscle bulk in the thighs is symmetric and felt within normal limits. No groin hernia or adenopathy is seen bilaterally. Urinary bladder is within normal limits. No suspicious bowel dilatation. Uterus is surgically absent similar to prior. No free fluid in the pelvis is noted. Susceptibility artifact in the lower lumbar s pine is redemonstrated. IMPRESSION: Avascular necrosis and degenerative change in the right hip has similar appearance to the prior MRI.
== END | disposition home or self-care (01) ==
LOC: RADMRIMAIN 18:16
PROVIDERS: ATTEND Psychiatry & Neurology Neurology
DX: M16.11 Unilateral primary osteoarthritis, right hip (principal); M47.816 Spondylosis without myelopathy or radiculopathy, lumbar region; M87.851 Other osteonecrosis, right femur

== ENCOUNTER → 2023-11-27 | Outpatient (CLI) | payer MEDICARE ==
[2023-11-27 17:32] LABS: INR 0.9 (<1.2); Partial Thromboplastin Time 26.6 sec (22.0-30.0); Prothrombin Time 10.1 sec (10.0-12.5)
[2023-11-28 02:13] LABS: HCT 47.7 % (37.2-46.3); HGB 15.3 g/dL (12.0-15.0); MCH 29.5 pg (27.0-32.0); MCHC 32.1 g/dL (32.0-37.0); MCV 91.9 FL (80.0-97.0); Mean Platelet Volume 11.5 FL (9.5-12.2); NRBC Per 100 WBC 0 X 10*3/uL (0.00-0.01); Platelet Count 488 X 10*3/uL (140-440); RBC 5.19 X 10*6/uL (4.10-5.20); RDW 13.6 % (11.5-14.5); WBC 10.51 X 10*3/uL (4.50-10.00)
[2023-11-28 03:31] LABS: ALT 32 U/L (8-44); AST 33 U/L (13-35); Albumin 4.3 g/dL (3.8-4.9); Albumin/Globulin Ratio 1.23 Ratio (1.60-3.17); Alkaline Phosphatase 121 U/L (41-126); BUN/Creat Ratio 15.11 Ratio (12.00-20.00); Blood Urea Nitrogen 13.6 mg/dL (9.0-27.0); Calcium 10.6 mg/dL (8.7-10.3); Carbon Dioxide 24.6 mmol/L (21.6-31.8); Chloride 101 mmol/L (96-109); Globulin 3.5 g/dL (1.6-3.3); Glucose 79 mg/dL (70-110); Potassium 4.9 mmol/L (3.5-5.5); Sodium 141 mmol/L (135-145); Total Bilirubin 0.2 mg/dL (0.3-1.2); Total Protein 7.8 g/dL (6.2-8.2)
== END | disposition home or self-care (01) ==
LOC: LABPAT 16:37
PROVIDERS: ATTEND Orthopaedic Surgery
DX: Z01.818 Encounter for other preprocedural examination (principal); M16.11 Unilateral primary osteoarthritis, right hip; I49.8 Other specified cardiac arrhythmias; R94.31 Abnormal electrocardiogram [ECG] [EKG]; Z22.322 Carrier or suspected carrier of Methicillin resistant Staphylococcus aureus
CPT/HCPCS: 36415; 80053; 85027; 85610; 85730; 86850; 86900; 86901; 87070; 93005

== ENCOUNTER 2023-12-07 06:43 | Observation (INO) | payer MEDICARE ==
[2023-12-01 17:12] VITALS: BMI 39.7
[~2023-12-07 06:43] MED LIST changes: -ACETAMINOPHEN TAB 500 MG TAB PO ONE; -DEXAMETHASONE SOD PHOSPHATE 10 MG/ML 1 ML VIAL IV ONE; -GABAPENTIN 300 MG CAP PO ONE; -LIDOCAINE 1% (10MG/ML) FOR IV START INTRADERMA PRN; -MELOXICAM 7.5 MG TAB PO ONE; -ONDANSETRON 4 MG/2 ML VIAL IVP ONE; +TRANEXAMIC 1,000 MG/100ML-NACL 1,000 MG in SALINE 1 100ML.BAG IVPB PRN; -TRANEXAMIC ACID 1,000 MG in SODIUM CHLORIDE 0.9% 100 ML IVPB ONE
[2023-12-07] MEDS: LACTATED RINGERS 1,000 ML IV ONE ×3 (07:25→12:10)
[2023-12-07] MEDS: ACETAMINOPHEN TAB 500 MG TAB PO PRN (08:17)
[2023-12-07] MEDS: DEXAMETHASONE SOD PHOSPHATE 4 MG/ML 1 ML VIAL IV ONE (08:18)
[2023-12-07] MEDS: GABAPENTIN 300 MG CAP PO PRN (08:18)
[2023-12-07] MEDS: ONDANSETRON 4 MG/2 ML VIAL IVP ONE (08:18)
[2023-12-07] MEDS: MELOXICAM 7.5 MG TAB PO PRN (08:18)
[2023-12-07] MEDS: MIDAZOLAM 2 MG/2 ML VIAL IVP ONE (08:28)
[2023-12-07] MEDS ORDERED: MAGNESIUM HYDROXIDE 2,400 MG/30 ML CUP PO PRN (08:45)
[2023-12-07] MEDS ORDERED: NALOXONE 0.4 MG/ML 1 ML VIAL IV PRN (08:45)
[2023-12-07] MEDS ORDERED: HYDROmorphone 0.5 MG/0.5 ML SYRINGE IVP PRN ×2 (08:45)
[2023-12-07] MEDS ORDERED: ONDANSETRON 4 MG/2 ML VIAL IVP PRN (08:45)
[2023-12-07] MEDS ORDERED: TRANEXAMIC 1,000 MG/100ML-NACL PREMIX BAG ONE (09:10)
[2023-12-07] MEDS ORDERED: ROCURONIUM 10 MG/ML (5 ML VIAL) IV ONE (09:10)
[2023-12-07] MEDS ORDERED: NEOSTIGMINE 1 MG/ML 10 ML VIAL ONE (09:10)
[2023-12-07] MEDS ORDERED: PROPOFOL 10 MG/ML 20 ML VIAL IV ONE (09:10)
[2023-12-07] MEDS ORDERED: fentaNYL (PF) 50 MCG/ML 2 ML AMP ONE (09:10)
[2023-12-07] MEDS ORDERED: HYDROmorphone (PF) 1 MG/ML ONE (09:10)
[2023-12-07] MEDS ORDERED: ePHEDrine 50 MG/ML 1 ML VIAL ONE (09:10)
[2023-12-07] MEDS ORDERED: BUPIVACAIN-EPI 0.5%-1:200,000 30 ML VIAL ONE (09:10)
[2023-12-07] MEDS ORDERED: LIDOCAINE 1% INJ 10MG/ML (20 ML MDV) ONE (09:10)
[2023-12-07] MEDS ORDERED: GLYCOPYRROLATE 0.2 MG/ML 2 ML VIAL ONE (09:10)
[2023-12-07] MEDS ORDERED: SUCCINYLCHOLINE CHLORIDE 200 MG/10 ML VIAL IV ONE (09:10)
[2023-12-07] MEDS ORDERED: SODIUM CHLORIDE 0.9% (PF) 10 ML VIAL ONE (09:10)
[2023-12-07] MEDS ORDERED: PHENYLEPHRINE-0.9% NACL SYG 1,000 MCG/10 ML SYRINGE ONE (09:10)
[2023-12-07] MEDS ORDERED: ALBUTEROL HFA INHALER INHALATION ONE (09:10)
[2023-12-07] MEDS ORDERED: KETAMINE HCL IN 0.9 % NACL 50 MG/5 ML SYRINGE ONE (09:10)
[2023-12-07] MEDS ORDERED: DEXAMETHASONE SOD PHOSPHATE 4 MG/ML 1 ML VIAL ONE (09:10)
[2023-12-07] MEDS: ceFAZolin 1,000 MG in SODIUM CHLORIDE 0.9% 1,000 ML IRRIGATION ONE (09:12)
[2023-12-07] MEDS: ROPIVACAINE 5 MG/ML 30 ML VIAL MISCELLANE ONE ×2 (09:44→10:30)
--- NOTE | 2023-12-07 10:02 | P.ANPRN ---
Procedure Note - Anesthesia - Nerve Block Performed Right Mil Single Time Out Performed: Yes Date of Procedure: 12/07/23 Procedure Start Time: : Procedure Stop Time: :35 Location of Patient: PreOp Indication: Acute Post-Operative Pain, Requested by Surgeon Sedation Type: Sedate with meaningful contact maintained Preparation: Sterile Prep Position: Supine Needle Types: Pajunk Needle Gauge: 21 Ultrasound used to visualize needle placement: Yes Ultrasound used to observe medication spread: Yes Injectate: 0.5% Ropivacaine (see comment for volume) (Ropivacaine 0.5% 20 ml + 10 ml NS + 4 mg Dexamethasone) Blood Aspirated: No Pain Paresthesia on Injection Noted: No Resistance on Injection: Normal Image Stored and Saved: Yes Events: Uneventful and Well Tolerated
--- NOTE | 2023-12-07 10:35 | P.OP ---
Date of Procedure: 12/07/23 Preoperative Diagnosis: Avascular necrosis right hip Postoperative Diagnosis: Avascular necrosis right hip Procedure(s) Performed: Right total hip arthroplasty with a direct anterior approach Implants: [employer] Polarstem standard size 0 with a collar [employer] R3, 3 hole hemispherical acetabular shell, 48 mm [employer] Reflection 6.5 mm cancellus screw, 20 mm 2 [employer] R3, XLPE 20 acetabular liner [employer] Oxinium femoral head 32 mm, +0 All components were press-fit. The articulation is Oxinium on polyethylene. Anesthesia: spinal Surgeon: Paul Trejo Registered Nurse Bone Marrow Transplant #1: Augustina Umaña Estimated Blood Loss (ml): 700 Pathology: none sent Condition: stable Disposition: PACU Indications for Procedure: After failure of conservative treatment we discussed the surgical and nonsurgical treatment options at length. Patient wishes to proceed with a total hip arthroplasty with a direct anterior approach. Complications specific to this procedure were discussed at length, including but not limited to infection, leg length discrepancy, dislocation, nerve injury, and fracture. Covid-19 was also discussed at length with the patient, and they are aware of the current policies and procedures. The patient was given the option of delaying surgery, but they elect to proceed knowing these risks. Patient is aware of all these complications and informed consent was obtained Operative Findings: The operative findings are consistent with avascular necrosis with femoral head collapse of the right hip Description of Procedure: The patient was seen and evaluated in the preoperative area and the consent was reviewed. The operative site was marked with a skin marker. The patient verified the procedure and operative site. A GABY block was placed by anesthesia in the preoperative area. The patient was then brought to the operating room and given preoperative antibiotics intravenously. 1 g of Tranexamic acid was also given intravenously. A spinal anesthetic was administered by the anesthesia department. The patient was then placed on the Shannock table with the bony prominences well-padded. The hip area was then prepped with a ChloraPrep solution and draped in the usual sterile fashion. A universal timeout was then performed, which confirmed the patient's name, surgical site, ALLERGIES, and procedure being performed on the consent. Next the incision site was located at 1 cm distal and 4 cm lateral to the anterior superior iliac spine. The skin and subcutaneous tissues were sharply incised. Incision was carefully dissected down to the fascia overlying the tensor fascia trevor muscle. This fascia was then incised in line with the muscle fibers. Care was taken to stay laterally in order to avoid injuring the lateral femoral cutaneous nerve. Next, using blunt finger dissection, the tensor fascia trevor muscle was dissected off its investing fascia. The muscle was then carefully retracted laterally with a cobra retractor over the lateral neck of the femur. Next, the circumflex vessels were identified and cauterized using the Aquamantis device. The anterior hip capsule was then exposed. The capsule was then opened and an inverted T fashion. The retractors were then placed intracapsularly. The retractors were maintained intracapsular throughout the procedure. The proximal femur was then visualized. Fluoroscopic x-rays were then taken in order to evaluate the preoperative leg lengths. A small amount of traction was placed on the leg. The femoral neck was then osteotomized at the appropriate level above the lesser trochanter. A small wedge of bone was then removed from the remaining femoral head. Next, using a corkscrew the femoral head was removed from the acetabulum. On gross visual inspection, the femoral head had evidence of avascular necrosis with collapse of the femoral head. The femoral head was then measured. Attention was then turned to the acetabulum. The acetabulum was exposed and any remaining labrum was excised. Sequential reaming of the acetabulum was performed using fluoroscopic guidance until there was a good bed of bleeding cancellus bone. When the appropriate size was reached, a trial was then placed. The position and fit of the trial was checked with fluoroscopy. The trial was then removed. Then, using fluoroscopic guidance, the final implant was impacted at 20 of anteversion and 40 of abduction, and fully seated in the acetabulum. 2 screws were then placed in the acetabulum. Again fluoroscopy was used to check position of the screws. Next, the liner was then impacted, with a 20 elevated liner located in the anterior superior quadrant. Component locking was confirmed. Attention was then directed to the femur. With the aid of the Shannock table, the femur was externally rotated to approximately 130, extended, and adducted under the opposite leg. A side hook was then placed under the proximal femur, and the side hook elevator was used to elevate the proximal femur while releasing the capsule. Retractors were then placed. A capsular release was performed, as well as a release of the conjoined tendon, which afforded excellent visualization of the proximal femur. Next, a box osteotome was used to lateralize the proximal femur. A hand slitter was then used to locate the femoral canal. Sequential broaching was then performed with appropriate size which afforded excellent fixation in the proximal femur. A trial was then placed with appropriate head and neck, and the hip was gently reduced with the aid of the Shannock table. Fluoroscopy was then used to check position of the components, as well as to evaluate the leg lengths and offset. The leg lengths and offset were measured as closely as possible to ensure stability of the hip. The hip was then gently dislocated and the trials were then removed. Final implants were then impacted and the hip was again reduced. Final fluoroscopic x-rays confirmed that the components were in anatomic position. The leg lengths and offset were measured and were found to coincide with the trial measurements. The hip was also taken through range of motion, and found to be stable. The hip was then copiously irrigated with antibiotic solution with pulsatile lavage. The hip was then irrigated with Irrisept solution. The soft tissues were then injected with a ropivacaine solution. A second dose of 1 g of Tranexamic acid was also given intravenously. The fascia was then closed with 2-0 strata fix suture. The subcutaneous tissue was closed with 3-0 Vicryl. The subcuticular tissue was closed with 3-0 strata fix suture. The skin was then closed with Exofin skin glue. After the glue and dried, and Optifoam silver impregnated dressing was applied. The patient was then transferred to the recovery room in stable condition. The electrical assistant KARIME Crawford was required due to the complexity of surgery, and the need for skilled surgical supply assistant for positioning, draping, exposure, retraction, and closure of the wound.
[2023-12-07] MEDS: PHENYLEPHRINE 10 MG/ML VIAL IV ONE (11:17)
[2023-12-07] MEDS: HYDROmorphone 0.5 MG/0.5 ML SYRINGE IVP ONE (11:25)
--- NOTE | 2023-12-07 11:35 | FL ---
EXAMINATION TYPE: FL guidance operating room, XR Hip Limited RT Intraoperative/procedural fluoroscopi c services were provided. Total fluoroscopy time is 35.3 seconds with a total of 5 submitted images t o PACS. Please see the operative/procedural note for further details. DAP: 1.1202 Gycm2
[2023-12-07] MEDS: HYDROmorphone 0.5 MG/0.5 ML SYRINGE IVP PRN (11:59)
[2023-12-07 12:52] LABS: Basophils # (A) 0.1 k/uL (0-0.2); Basophils % (A) 0 %; Eosinophils # (A) 0.1 k/uL (0-0.7); Eosinophils % (A) 1 %; HCT 39.9 % (34.0-46.0); HGB 12.6 gm/dL (11.4-16.0); Hypochromasia Slight; Lymphocytes # (A) 2.1 k/uL (1.0-4.8); Lymphocytes % (A) 12 %; MCH 29.9 pg (25.0-35.0); MCHC 31.7 g/dL (31.0-37.0); MCV 94.1 fL (80.0-100.0); Mean Platelet Volume 8.9; Monocytes # (A) 0.3 k/uL (0-1.0); Monocytes % (A) 2 %; Neutrophils # (A) 14.9 k/uL (1.3-7.7); Neutrophils % (A) 85 %; Platelet Count 312 k/uL (150-450); RBC 4.24 m/uL (3.80-5.40); RDW 13.3 % (11.5-15.5); WBC 17.6 k/uL (3.8-10.6)
[2023-12-07] MEDS: LACTATED RINGERS 1,000 ML IV SCH (14:32)
[2023-12-07] MEDS: HYDROmorphone 1 MG/ML 1 ML SYRINGE IVP PRN (16:02)
[2023-12-07] MEDS: SODIUM CHLORIDE 0.9% 1,000 ML IV SCH (16:52)
[2023-12-07] MEDS: ASPIRIN 81 MG PO SCH (21:20)
[2023-12-07] MEDS: SENNOSIDES-DOCUSATE SODIUM 1 EACH TAB PO SCH (21:20)
[2023-12-07] MEDS: oxyCODONE ER 10 MG TAB.ER.12H PO SCH (22:56)
--- NOTE | 2023-12-08 08:50 | XR ---
FL guidance operating room, XR Hip Limited RT Intraoperative/procedural fluoroscopic services were pr ovided. Total fluoroscopy time is 35.3 seconds with a total of 5 submitted images to PACS. Please see the operative/procedural note for further details. DAP: 1.1202 Gycm2
[2023-12-08] MEDS ORDERED: ALBUTEROL NEBULIZED 2.5 MG/3 ML INHALATION PRN (11:02)
[2023-12-08 12:58] LABS: HCT 32.5 % (37.2-46.3); HGB 10.3 g/dL (12.0-15.0); MCH 28.9 pg (27.0-32.0); MCHC 31.7 g/dL (32.0-37.0); MCV 91.3 FL (80.0-97.0); Mean Platelet Volume 12.8 FL (9.5-12.2); NRBC Per 100 WBC 0 X 10*3/uL (0.00-0.01); Platelet Count 270 X 10*3/uL (140-440); RBC 3.56 X 10*6/uL (4.10-5.20); RDW 14.1 % (11.5-14.5); WBC 19.99 X 10*3/uL (4.50-10.00)
--- NOTE | 2023-12-08 13:09 | P.PN ---
Subjective Progress Note Date: 12/08/23 This is a 58-year-old fe male who is status post right total hip arthroplasty. This is postoperative day #1 and patient is seen and evaluated at bedside with Dr. Paul Trejo. Patient states that she is in a lot of pain today and was unable to work with physical therapy. Patient denies any fever/chills, chest pain, shortness breath, abdominal pain, numbness, weakness or tingling. Objective - Vital Signs Vital signs: Vital Signs Temp 98.9 F 12/08/23 07:33 Pulse 90 12/08/23 07:33 Resp 16 12/08/23 07:33 BP 116/74 12/08/23 07:33 Pulse Ox 98 12/08/23 07:33 FiO2 Intake & Output 12/07/23 12/08/23 12/08/23 18:59 06:59 18:59 Intake Total 3331 Output Total 700 Balance 2631 Weight 109.6 kg Intake: IV 2551 Intake, IV Titration 530 Amount Sodium Chloride 0.9% 1, 480 000 ml @ 70 mls/hr IV . [id number] ON LICENSE OF [facility] Rx#:[id number] ceFAZolin 2 gm In Sodium 50 Chloride 0.9% 50 ml @ 100 mls/hr IVPB ONCE PRN Rx# :[id number] Oral 250 Output: Estimated Blood Loss 700 Other: Voiding Method Bedside Commode Bedside Commode # Voids 2 - Exam Vital signs are stable. Patient is in no acute distress and is alert and oriented 3. Calf is soft and nontender to palpation. Dressing is clean, dry, and intact. Patient has full foot and ankle motion without pain or difficulty. Sensation intact. Neurovascular status and circulatory status are intact. - Labs CBC & Chem 7: 12/08/23 07:04 Labs: Abnormal Lab Results - Last 24 Hours (Table) 12/08/23 Range/Units 07:04 WBC 19.99 H (4.50-10.00) X 10*3/uL RBC 3.56 L (4.10-5.20) X 10*6/uL Hgb 10.3 L (12.0-15.0) g/dL Hct 32.5 L (37.2-46.3) % MCHC 31.7 L (32.0-37.0) g/dL MPV 12.8 H (9.5-12.2) FL Assessment and Plan (1) Avascular necrosis of bone of right hip Current Visit: Yes Status: Acute Code(s): M87.051 - IDIOPATHIC ASEPTIC NECROSIS OF RIGHT FEMUR SNOMED Code(s): 117056864 (2) S/P total hip arthroplasty Current Visit: No Status: Acute Code(s): Z96.649 - PRESENCE OF UNSPECIFIED ARTIFICIAL HIP JOINT SNOMED Code(s): 142188092647 Plan: Continue routine postop care and pain control. Continue anticoagulation with aspirin. Weightbearing as tolerated with a walker Leave dressing in place for 7 days. Appreciate input from internal medicine. Anticipate discharge home with homecare in the next 24-48 hours.
[2023-12-08] MEDS: HYDROXYCHLOROQUINE SULFATE 200 MG TAB PO SCH (14:12)
[2023-12-08] MEDS: DULoxetine HCL 60 MG CAPSULE.DR PO SCH (14:12)
[2023-12-08] MEDS: PREGABALIN 75 MG CAP PO SCH (14:12)
[2023-12-08] MEDS: LEVOTHYROXINE 100 MCG TAB PO SCH (14:12)
[2023-12-08] MEDS: METOPROLOL SUCCINATE (ER) 50 MG TAB.ER.24H PO SCH (14:12)
[2023-12-08] MEDS: KETOROLAC 15 MG/ML 1 ML VIAL IVP PRN (14:18)
[2023-12-08 14:46] LABS: Basophils # (M) 0 X 10*3/uL (0.00-0.10); Eosinophils # (M) 0 X 10*3/uL (0.04-0.35); Neutrophils # (M) 12.59 X 10*3/uL (1.80-7.70); Neutrophils % (M) 63 %; RBC Morphology Normal (Normal)
[2023-12-08] MEDS: MORPHINE SULFATE ER 30 MG TABLET PO SCH (17:41)
[2023-12-08] MEDS: NICOTINE 7MG/24HR PATCH TRANSDERM SCH (18:00)
--- NOTE | 2023-12-09 00:19 | P.CONS ---
History of Present Illness - Reason for Consult Consult date: 12/08/23 Medical management - Chief Complaint Right total hip arthroplasty - History of Present Illness Patient is a 58-year-old female with past medical history of COPD, fibromyalgia, hypothyroidism, migraine headaches, history of lupus, Sjogren's, ITP, anxiety/depression currently someday smoker and prior history of cervical fusion, lumbar fusion and right knee arthroscopy and left THR in 2019 was a dmitted to hospital for elective right total hip arthroplasty. Patient is still complaining of right hip pain and also requesting to start back on her home medications including Lyrica and morphine. Patient otherwise denies any nausea or vomiting. No headache or dizziness. No complaints of chest pain or shortness of breath. Laboratory data showed WBC 17.6 hemoglobin 12.6 and platelets 312 Review of Systems Constitutional: Patient denies any fever or chills . no Generalized weakness. Abdomen: Patient denied any nausea or vomiting or abd. pain Cardiovascular: Patient denies any chest pain or short of breath no palpitations. Respiratory: patient denied any cough . no sputum production. No shortness of breath Neurologic: Patient denied any numbness or tingling or headache. Musculoskeletal: Patient complains of hip pain and generalized pain. Skin: Negative Psychiatric: Anxiety Endocrine: No heat or cold intolerance. No recent weight gain. Genitourinary: No dysuria or hematuria. All other 14 point ROS negative except the above Past Medical History Past Medical History: COPD, Fibromyalgia, Osteoarthritis (OA), Pneumonia, Thyroid Disorder Additional Past Medical History / Comment(s): migraines, "racing" heart rate - had heart monitor for 2 days then prescribed metoprolol, varicose veins, ulcer, lupus, sjogrens, ITP, thrombocytopenia - stable now from lupus, sinus issues, hypothyroidism, DDD, recurring sacral rash from lupus(per [facility]) 1-2x/yr History of Any Multi-Drug Resistant Organisms: None Reported Past Surgical History: Back Surgery, Hysterectomy, Tonsillectomy Additional Past Surgical History / Comment(s): splenectomy(2014), several laparoscopic surgeries for ovarian cysts, alon cataracts with lens implants, cervical fusion x 2, lumbar fusion, alon carpal tunnel, rt leg "ablation" for a leak in a vein, Lt. THR 2019, Rt. knee arthroscopy Past Anesthesia/Blood Transfusion Reactions: No Reported Reaction Additional Past Anesthesia/Blood Transfusion Reaction / Comm: hypotensive after THR thought to be from nadolol, pt. now takes metoprolol Past Psychological History: Anxiety, Depression Smoking Status: Current some day smoker Past Alcohol Use History: Rare Additional Past Alcohol Use History / Comment(s): smokes 5 cigarettes/day trying to quit, started smoking 1980 smoked 1/2-1ppd Past Drug Use History: None Reported - Past Family History Mother Family Medical History: Cancer, Coronary Artery Disease (CAD) Additional Family Medical History / Comment(s): colon Medications and Allergies Home Medications Medication Instructions Recorded Confirmed Type Ascorbic Acid [Vitamin C] 1,000 mg PO DAILY 03/22/20 12/07/23 History Atorvastatin [Lipitor] 20 mg PO DAILY 03/22/20 12/07/23 History DULoxetine HCL [Cymbalta] 60 mg PO DAILY 03/22/20 12/07/23 History Hydroxychloroquine Sulfate 200 mg PO BID 03/22/20 12/07/23 History [Plaquenil] Levothyroxine Sodium [Synthroid] 100 mcg PO DAILY 03/22/20 12/07/23 History Magnesium 250 mg PO DAILY 03/22/20 12/07/23 History Morphine Sulfate [Ms Contin] 30 mg PO BID 03/22/20 12/07/23 History Vitamin B Complex 1 cap PO DAILY 03/22/20 12/07/23 History oxyCODONE HCL [OxyCONTIN] 10 mg PO Q12H 03/22/20 12/07/23 History Metoprolol Succinate (ER) [Toprol 50 mg PO DAILY #30 tab 03/28/20 12/07/23 Rx XL] Pregabalin [Lyrica] 150 mg PO TID 02/18/21 12/07/23 History Albuterol Inhaler [Ventolin Hfa 2 puff INHALATION RT-QID PRN 02/10/23 12/07/23 History Inhaler] Multivit-Min/Iron/Folic/Lutein 1 tab PO HS 02/10/23 12/07/23 History [Centrum Silver Women Tablet] Furosemide [Lasix] 20 mg PO DAILY PRN 12/01/23 12/07/23 History Pilocarpine [Salagen] 5 mg PO TID PRN 12/01/23 12/07/23 History diphenhydrAMINE [Benadryl] 50 mg PO HS PRN 12/01/23 12/07/23 History Aspirin [Adult Low Dose Aspirin EC] 81 mg PO BID 30 Days #60 tab 12/07/23 Rx Allergies Allergy/AdvReac Type Severity Reaction Status Date / Time Androgenic Anabolic Steroid AdvReac Unknown Verified 12/07/23 07:32 Antihistamines - Alkylamine AdvReac Unknown Verified 12/07/23 07:32 Physical Exam Vitals: Vital Signs Temp Pulse Pulse Resp BP BP Pulse Ox 12/08/23 07:33 98.9 F 90 16 116/74 98 12/08/23 07:25 80 13 12/08/23 02:00 98.8 F 80 116/60 97 12/07/23 19:14 97.6 F 81 13 91/59 97 12/07/23 15:55 84 104/67 94 L 12/07/23 15:47 95 12/07/23 15:40 82 99/68 99 12/07/23 15:25 81 104/69 94 L 12/07/23 15:09 80 106/71 95 12/07/23 14:55 86 109/74 97 12/07/23 14:40 86 107/73 97 12/07/23 14:24 82 106/72 97 12/07/23 14:09 82 110/71 98 12/07/23 13:56 97.3 F L 87 19 109/70 96 12/07/23 13:30 77 19 110/60 99 12/07/23 13:15 83 20 114/65 97 12/07/23 13:00 75 18 112/66 97 12/07/23 12:45 84 19 110/61 98 12/07/23 12:30 76 17 145/71 99 12/07/23 12:15 73 16 124/66 98 12/07/23 12:00 77 20 148/43 96 12/07/23 11:45 74 16 147/65 97 12/07/23 11:30 97.2 F L 78 18 111/63 97 12/07/23 11:15 76 15 84/42 99 Intake and Output 12/07/23 12/08/23 12/08/23 22:59 06:59 14:59 Intake Total 780 Balance 780 Intake: Intake, IV Titration 530 Amount Sodium Chloride 0.9% 1, 480 000 ml @ 70 mls/hr IV . [id number] [facility] Rx#:[id number] ceFAZolin 2 gm In Sodium 50 Chloride 0.9% 50 ml @ 100 mls/hr IVPB ONCE PRN Rx# :[id number] Oral 250 Other: Voiding Method Bedside Commode Bedside Commode # Voids 2 PHYSICAL EXAMINATION: Patient is lying in the bed comfortably, appears to be in mild distress due to pain., awake alert and oriented.. HEENT: Normocephalic. Neck is supple. Pupils reactive. Nostrils clear. Oral cavity is moist. Neck reveals no JVD, carotid bruits, or thyromegaly. CHEST EXAMINATION: Trachea is central. Symmetrical expansion. Lung burger clear to auscultation and percussion. CARDIAC: Normal S1, S2 with no gallops. No murmurs ABDOMEN: Soft. Bowel sounds present. Nontender. No organomegaly. No abdominal bruits. Extremities: reveal no edema. No clubbing or cyanosis Neurologically awake, alert, oriented x3 with well-coordinated movements. No focal deficits noted. Anxious. Skin: No rash or skin lesions. Psychiatric: Coperative. Nonsuicidal, anxious. Musculoskeletal: No joint swelling or deformity. Right hip surgical site intact. No swelling. Results CBC & Chem 7: 12/08/23 07:04 Labs: Abnormal Lab Results - Last 24 Hours (Table) 12/07/23 Range/Units 12:38 WBC 17.6 H (3.8-10.6) k/uL Neutrophils # 14.9 H (1.3-7.7) k/uL Assessment and Plan Assessment: Status post right total hip arthroplasty with direct anterior approach due to avascular necrosis. Postoperative day 1 Leukocytosis likely due to postsurgical inflammation. Fibromyalgia Chronic pain COPD not in exacerbation Hypothyroidism Obesity with BMI 38.4 History of migraine headaches Lupus Sjogren's syndrome History of ITP Anxiety/depression Currently someday smoker DVT prophylaxis patient is on aspirin twice daily. Plan: Patient will be continued on current pain management and would like to be started back on her home regimen including morphine and Lyrica. Continue with bowel regimen and encourage incentive spirometry. Continue GI and DVT prophylaxis. Ordered CBC and BMP tomorrow. Will continue to follow and further recommendations based on clinical course. Thank you for your consult. Time with Patient: Greater than 30
[2023-12-09 08:21] VITALS: BP 111/71; PULSE 97; RESP 15; TEMP 98.4
[2023-12-09 08:56] LABS: BUN/Creat Ratio 15.43 Ratio (12.00-20.00); Blood Urea Nitrogen 10.8 mg/dL (9.0-27.0); Calcium 8.6 mg/dL (8.7-10.3); Carbon Dioxide 24.7 mmol/L (21.6-31.8); Chloride 108 mmol/L (96-109); Glucose 98 mg/dL (70-110); Sodium 142 mmol/L (135-145)
[2023-12-09] MEDS: ATORVASTATIN 20 MG TAB PO SCH (09:02)
--- NOTE | 2023-12-09 10:33 | P.DS ---
Providers Date of admission: 12/08/23 13:20 Expected date of discharge: 12/09/23 Attending physician: Paul Trejo Consults: 12/07/23 15:07 Consult Physician Routine Consulting Provider: Jose J Carpenter Consult Reason/Comments: Medical management Do you want consulting provider notified?: Yes Primary care physician: Gricelda Murdock - Discharge Diagnosis(es) (1) Avascular necrosis of bone of right hip Current Visit: Yes Status: Acute (2) S/P total hip arthroplasty Current Visit: No Status: Acute Hospital Course: This is a 58-year-old female with known history of avascular necrosis of the right hip. The patient presented for evaluation as an outpatient. After discussion and consideration patient elects to proceed with total hip arthroplasty. The patient is seen preoperatively by Dr. Trejo and medically cleared for surgery by their primary care physician. Patient is admitted to [facility] on 12/07/2023 for total hip arthroplasty. The procedure is performed without complication or sequelae. The patient is doing well postoperatively. Labs and vital signs are stable on day of discharge. On day of discharge patient's hip incision is healing well. There is minimal erythema. There is no drainage noted at this time. There is minimal soft tissue swelling to the hip and thigh. Patient has full foot and ankle motion without difficulty or pain. Calf is soft and nontender to palpation. Neurovascular status to the right lower extremity is intact. Patient has a pain contract with another physician who will manage postoperative pain. Patient is discharged home in good condition. Please see med rec for accurate list of home medications. Plan - Discharge Summary Discharge Rx Participant: Yes New Discharge Prescriptions: New Aspirin [Adult Low Dose Aspirin EC] 81 mg PO BID 30 Days #60 tab Ketorolac [Toradol] 10 mg PO Q6HR #12 tab No Action oxyCODONE HCL [OxyCONTIN] 10 mg PO Q12H Morphine Sulfate [Ms Contin] 30 mg PO BID Hydroxychloroquine Sulfate [Plaquenil] 200 mg PO BID DULoxetine HCL [Cymbalta] 60 mg PO DAILY Atorvastatin [Lipitor] 20 mg PO DAILY Levothyroxine Sodium [Synthroid] 100 mcg PO DAILY Ascorbic Acid [Vitamin C] 1,000 mg PO DAILY Vitamin B Complex 1 cap PO DAILY Magnesium 250 mg PO DAILY Metoprolol Succinate (ER) [Toprol XL] 50 mg PO DAILY #30 tab Multivit-Min/Iron/Folic/Lutein [Centrum Silver Women Tablet] 1 tab PO HS diphenhydrAMINE [Benadryl] 50 mg PO HS PRN PRN Reason: Insomnia Furosemide [Lasix] 20 mg PO DAILY PRN PRN Reason: swelling Pregabalin [Lyrica] 150 mg PO TID Albuterol Inhaler [Ventolin Hfa Inhaler] 2 puff INHALATION RT-QID PRN PRN Reason: Shortness Of Breath Pilocarpine [Salagen] 5 mg PO TID PRN PRN Reason: Dry Mouth Discharge Medication List Ascorbic Acid [Vitamin C] 1,000 mg PO DAILY 03/22/20 [History] Atorvastatin [Lipitor] 20 mg PO DAILY 03/22/20 [History] DULoxetine HCL [Cymbalta] 60 mg PO DAILY 03/22/20 [History] Hydroxychloroquine Sulfate [Plaquenil] 200 mg PO BID 03/22/20 [History] Levothyroxine Sodium [Synthroid] 100 mcg PO DAILY 03/22/20 [History] Magnesium 250 mg PO DAILY 03/22/20 [History] Morphine Sulfate [Ms Contin] 30 mg PO BID 03/22/20 [History] Vitamin B Complex 1 cap PO DAILY 03/22/20 [History] oxyCODONE HCL [OxyCONTIN] 10 mg PO Q12H 03/22/20 [History] Metoprolol Succinate (ER) [Toprol XL] 50 mg PO DAILY #30 tab 03/28/20 [Rx] Pregabalin [Lyrica] 150 mg PO TID 02/18/21 [History] Albuterol Inhaler [Ventolin Hfa Inhaler] 2 puff INHALATION RT-QID PRN 02/10/23 [History] Multivit-Min/Iron/Folic/Lutein [Centrum Silver Women Tablet] 1 tab PO HS 02/10/23 [History] Furosemide [Lasix] 20 mg PO DAILY PRN 12/01/23 [History] Pilocarpine [Salagen] 5 mg PO TID PRN 12/01/23 [History] diphenhydrAMINE [Benadryl] 50 mg PO HS PRN 12/01/23 [History] Aspirin [Adult Low Dose Aspirin EC] 81 mg PO BID 30 Days #60 tab 12/07/23 [Rx] Ketorolac [Toradol] 10 mg PO Q6HR #12 tab 12/09/23 [Rx] Follow up Appointment(s)/Referral(s): Gricelda Murdock MD [Primary Care Provider] - 3 Days (office not answering please call to schedule appointment ) [facility], [NON-STAFF] - 1 Week ([facility] will call you to arrange a visit. ) Paul Trejo DO [Doctor of Osteopathic Medicine] - 12/21/23 1:00 pm (With Augustina) Patient Instructions/Handouts: How to Use an Incentive Spirometer (DC), Anterior Hip Replacement (DC) Activity/Diet/Wound Care/Special Instructions: Weightbearing as tolerated with walker. Leave dressing intact. Dressing may be removed by home care nurse or by patient in 7 days. Then change dressing twice daily until follow up. May shower with initial dressing intact and after removal. If dressing become saturated, please remove. Please take aspirin 325mg twice daily for 30 days to prevent blood clots. Pain management per Dr. Power. Recommend use of compression stockings daily until follow up to help prevent swelling and blood clots. May remove at night before sleeping. Please follow-up with [facility] in 2 weeks and call with any questions or concerns, . Discharge Disposition: HOME WITH HOME HEALTH SERVICES
--- NOTE | 2023-12-14 21:50 | P.PN ---
Subjective Progress Note Date: 12/09/23 Patient is a 58-year-old female with past medical history of COPD, fibromyalgia, hypothyroidism, migraine headaches, history of lupus, Sjogren's, ITP, anxiety/depression currently someday smoker and prior history of cervical fusion, lumbar fusion and right knee arthroscopy and left THR in 2019 was admitted to hospital for elective right total hip arthroplasty. Patient is still complaining of right hip pain and also requesting to start back on her home medications including Lyrica and morphine. Patient otherwise denies any nausea or vomiting. No headache or dizziness. No complaints of chest pain or shortness of breath. Laboratory data showed WBC 17.6 hemoglobin 12.6 and platelets 312 12/09/2023 Patient is s/p right total hip arthroplasty due to avascular necrosis. Currently patient is resting in the bed. Awake alert and oriented x 3. On room air. Pain is well-controlled. Able to ambulate with PT OT. No complaints of nausea or vomiting. No headache or dizziness lightheadedness. Patient is being current on home pain medication regimen as well. Otherwise laboratory pressure sodium 142 potassium 4.0 chloride 108 bicarb is 24.7 BUN 10.8 and creatinine 0.7 calcium 8.6. Patient is being discharged home today. Current medications reviewed. Objective - Vital Signs Vital signs: Vital Signs Temp 98.4 F 12/09/23 07:14 Pulse 97 12/09/23 10:40 Resp 15 12/09/23 10:40 BP 111/71 12/09/23 07:14 Pulse Ox 97 12/09/23 07:14 FiO2 Intake & Output 12/09/23 12/09/23 12/10/23 06:59 18:59 06:59 Other: Voiding Method Bedside Commode Bedside Commode # Voids 2 - Exam PHYSICAL EXAMINATION: Patient is lying in the bed comfortably, appears to be in mild distress due to pain., awake alert and oriented.. HEENT: Normocephalic. Neck is supple. Pupils reactive. Nostrils clear. Oral cavity is moist. Neck reveals no JVD, carotid bruits, or thyromegaly. CHEST EXAMINATION: Trachea is central. Symmetrical expansion. Lung burger clear to auscultation and percussion. CARDIAC: Normal S1, S2 with no gallops. No murmurs ABDOMEN: Soft. Bowel sounds present. Nontender. No organomegaly. No abdominal bruits. Extremities: reveal no edema. No clubbing or cyanosis Neurologically awake, alert, oriented x3 with well-coordinated movements. No fo nitin deficits noted. Anxious. Skin: No rash or skin lesions. Psychiatric: Coperative. Nonsuicidal, anxious. Musculoskeletal: No joint swelling or deformity. Right hip surgical site intact. No swelling. - Labs CBC & Chem 7: 12/08/23 07:04 12/09/23 04:30 Labs: Abnormal Lab Results - Last 24 Hours (Table) 12/08/23 12/09/23 Range/Units 07:04 04:30 Neutrophils # (Manual) 12.59 H (1.80-7.70) X 10*3/uL Calcium 8.6 L (8.7-10.3) mg/dL Assessment and Plan Assessment: Status post right total hip arthroplasty with direct anterior approach due to avascular necrosis. Postoperative day 2 Leukocytosis likely due to postsurgical inflammation. Fibromyalgia Chronic pain COPD not in exacerbation Hypothyroidism Obesity with BMI 38.4 History of migraine headaches Lupus Sjogren's syndrome History of ITP Anxiety/depression Currently someday smoker DVT prophylaxis patient is on aspirin twice daily. Plan: Patient will be continued on current pain management and would like to be started back on her home regimen including morphine and Lyrica. Continue with bowel regimen and encourage incentive spirometry. Continue GI and DVT prophylaxis. Patient is able to ambulate with PT. Pain is controlled with medications. Patient is being discharged home today. Discharge medication reconciliation was done. Patient was advised to follow-up with primary care physician in the next 3 to 5 days.
== END 2023-12-09 12:56 | disposition home health service (06) ==
LOC: OR 06:43 → 4SSUR 12:52 → OR 12-08 13:20
PROVIDERS: ADMIT Orthopaedic Surgery; ATTEND Orthopaedic Surgery
DX: M16.11 Unilateral primary osteoarthritis, right hip (principal); M87.9 Osteonecrosis, unspecified; J44.9 Chronic obstructive pulmonary disease, unspecified; M79.7 Fibromyalgia; E03.9 Hypothyroidism, unspecified; G43.909 Migraine, unspecified, not intractable, without status migrainosus; M35.00 Sjogren syndrome, unspecified; D69.3 Immune thrombocytopenic purpura; F41.9 Anxiety disorder, unspecified; G89.29 Other chronic pain; D72.829 Elevated white blood cell count, unspecified; F32.9 Major depressive disorder, single episode, unspecified; E66.9 Obesity, unspecified; Z68.38 Body mass index [BMI] 38.0-38.9, adult; F17.210 Nicotine dependence, cigarettes, uncomplicated; Z87.01 Personal history of pneumonia (recurrent); Z86.2 Personal history of diseases of the blood and blood-forming organs and certain disorders involving the immune mechanism; Z79.899 Other long term (current) drug therapy; Z79.890 Hormone replacement therapy; Z79.82 Long term (current) use of aspirin; Z88.8 Allergy status to other drugs, medicaments and biological substances; Z82.49 Family history of ischemic heart disease and other diseases of the circulatory system
CPT/HCPCS: 94760; 97116; 97161; 97535 ×2; 97166; 64447; 80048; 85025 ×2; 73501; 73502; 27130; G0378 ×2; C1776; S4990 ×2; J2250; J0330; J1100; J2710; J0690 ×3; J2405; J2001; J3010; J1170 ×3; J2795; J1885 ×2; J2704; J2371 ×2

== ENCOUNTER → 2024-06-16 | Outpatient (CLI) | payer MEDICARE ==
--- NOTE | 2024-06-16 13:14 | US ---
EXAMINATION TYPE: US bladder DATE OF EXAM: 06/16/2024 COMPARISON: NONE CLINICAL INDICATION: Female, 58 years old with history of R33.9 Retention of urine; urinary retention x 6 months TECHNIQUE: Multiple sonographic images of the bladder are obtained. FINDINGS: EXAM MEASUREMENTS: Post Void Residual Volume: 107.0 mL FELT CEMENTER NOTES: Bladder is sonolucent Color Doppler performed to assess ureteral jets. Bilateral Jets seen: Yes Normal Post Void Residual (less than 50ml): 107.0ml No bladder wall thickening or calculus. IMPRESSION: There is a small post void residual.
== END | disposition home or self-care (01) ==
LOC: RADUSWWP 12:36
PROVIDERS: ATTEND Family Medicine
DX: R33.9 Retention of urine, unspecified (principal)
CPT/HCPCS: 76857

== ENCOUNTER → 2024-09-07 | Outpatient (CLI) | payer MEDICARE ==
--- NOTE | 2024-09-07 13:17 | CTL ---
EXAMINATION TYPE: CT Low Dose Lung DATE OF EXAM ORDERED: 09/07/2024 COMPARISON: CTA chest 02/10/2023, 02/18/2021 CLINICAL INDICATION: Female, 59 years old with history of NICOTINE DEPENDENCE CURRENT SMOKER F17.210; PHH, SMOKER, Lung cancer screening, History of Smoking/tobacco use. TECHNIQUE: Low dose computed tomography scan was performed through the chest at 1 mm thick sections a nd reconstructed images in multiple planes at 1 mm and [address] DLP: 98.[address] CTDI: 2.6 mGy Automated exposure control for dose reduction was used. CT DIAGNOSTIC QUALITY: Satisfactory FINDINGS: Nodules: No clinically significant pulmonary nodules. LUNGS: COPD: Severity: None Fibrosis: Severity: None Lymph nodes: None Other findings: Linear scarring and/or atelectasis within the right middle lobe. RIGHT PLEURAL SPACE: Effusion: None Calcification: None Thickening: None Pneumothorax: None LEFT PLEURAL SPACE: Effusion: None Calcification: None Thickening: None Pneumothorax: None HEART: Heart Size: Normal Coronary Calcification: None Pericardial Effusion: None OTHER FINDINGS: Upper abdomen: Surgical clips in the left upper quadrant. Bony thorax: Mild multilevel degenerative disc disease. Partial visualization of anterior cervical fu hu hardware. Supraclavicular region: None Other: None IMPRESSION: No clinically significant pulmonary nodules. CT LUNG RAD AND CT CHEST RECOMMENDATION: Lung-Rad 1 Negative: Continue annual screening with LDCT in 12 months. S Modifier (other clinically significant findings): None [facility], , 09/07/2024 1:15 PM
== END | disposition home or self-care (01) ==
LOC: RADCTMAIN 11:35
PROVIDERS: ATTEND Internal Medicine
DX: Z12.2 Encounter for screening for malignant neoplasm of respiratory organs (principal); F17.210 Nicotine dependence, cigarettes, uncomplicated
CPT/HCPCS: 71271

== ENCOUNTER 2024-10-06 11:07 | Inpatient (IN) | payer MEDICARE ==
[2024-10-06] MEDS: methylPREDNISolone SOD SUCCI 125 MG/2 ML VIAL IV STA (11:50)
--- NOTE | 2024-10-06 11:57 | ED ---
SOB HPI - General Chief Complaint: Shortness of Breath Stated Complaint: INOCENCIO Time Seen by Provider: 10/06/24 11:54 Source: patient, family, EMS, RN notes reviewed, old records reviewed Mode of arrival: EMS Limitations: no limitations - History of Present Illness Initial Comments: 59-year-old female with a past medical history significant of COPD presenting the ER via EMS for evaluation of dyspnea. Patient states for the past week she has had progressively worsening shortness of breath. She states dyspnea is worse with exertion. She states she is unable to walk to the bathroom without feeling extremely short of breath. Patient wears 3.5 L of nasal cannula oxygen intermittently throughout the day and at night. Family, at bedside, states she has been more dependent on this over the past week. She denies peripheral edema. No current diuretics. Patient also reports a productive cough. She has tried Ventolin without relief. No fevers. She admits a tight chest discomfort last night with no radiation. She has no current chest discomfort. Patient was given DuoNeb nebulizer by EMS prior to arrival. No other complaints at this time. - Related Data Home Medications Medication Instructions Recorded Confirmed Atorvastatin [Lipitor] 20 mg PO DAILY 03/22/20 10/06/24 DULoxetine HCL [Cymbalta] 60 mg PO DAILY 03/22/20 10/06/24 Hydroxychloroquine Sulfate 400 mg PO DAILY 03/22/20 10/06/24 [Plaquenil] Levothyroxine Sodium [Synthroid] 100 mcg PO DAILY 03/22/20 10/06/24 Morphine Sulfate [Ms Contin] 30 mg PO BID 03/22/20 10/06/24 Pregabalin [Lyrica] 150 mg PO TID 02/18/21 10/06/24 Albuterol Inhaler [Ventolin Hfa 2 puff INHALATION RT-QID PRN 02/10/23 10/06/24 Inhaler] Clindamycin Phos/Benzoyl Perox 1 applic TOPICAL DAILY PRN 10/06/24 10/06/24 [Benzaclin Gel 1-5%] Fluticasone/Umeclidin/Vilanter 1 puff INHALATION RT-DAILY 10/06/24 10/06/24 [Trelegy Ellipta 100-62.5-25] oxyCODONE HCL [Oxycodone HCl] 10 mg PO BID 10/06/24 10/06/24 Previous Rx's Medication Instructions Recorded Metoprolol Succinate (ER) [Toprol 50 mg PO DAILY #30 tab 03/28/20 XL] Allergies Allergy/AdvReac Type Severity Reaction Status Date / Time Androgenic Anabolic Steroid AdvReac Unknown Verified 10/06/24 13:14 Antihistamines - Alkylamine AdvReac Unknown Verified 10/06/24 13:14 Review of Systems ROS Statement: Those systems with pertinent positive or pertinent negative responses have been documented in the HPI. ROS Other: All systems not noted in ROS Statement are negative. Past Medical History Past Medical History: Fibromyalgia, Osteoarthritis (OA), Pneumonia, Thyroid Disorder Additional Past Medical History / Comment(s): migraines, "racing" heart rate, varicose veins, ulcer, lupus, sjogrens, thrombocytopeia, sinus issues History of Any Multi-Drug Resistant Organisms: None Reported Past Surgical History: Orthopedic Surgery Additional Past Surgical History / Comment(s): spleenectomy, laparaoscy, alon cataracts with lens implants, cervical fusion x 2, lumbar fusion, alon carpal tunnel, rt leg "ablation" for a leak in a vein, Past Anesthesia/Blood Transfusion Reactions: No Reported Reaction Additional Past Anesthesia/Blood Transfusion Reaction / Comment(s): hypotensive after THR thought to be from nadolol, pt. now takes metoprolol Past Psychological History: No Psychological Hx Reported Smoking Status: Current every day smoker, Vaper Past Alcohol Use History: Occasional Past Drug Use History: None Reported - Past Family History Mother Family Medical History: Cancer, Coronary Artery Disease (CAD) Additional Family Medical History / Comment(s): colon General Exam Limitations: no limitations General appearance: alert, in no apparent distress Respiratory exam: Present: wheezes (All lung burger) Cardiovascular Exam: Present: regular rate, normal rhythm, normal heart sounds. Absent: systolic murmur, diastolic murmur, rubs, gallop, clicks Extremities exam: Present: normal inspection, full ROM, normal capillary refill. Absent: tenderness, pedal edema, joint swelling, calf tenderness Neurological exam: Present: alert, oriented X3, CN II-XII intact Skin exam: Present: warm, dry, intact, normal color. Absent: rash Course Vital Signs 10/06/24 10/06/24 10/06/24 11:08 12:02 12:10 Temperature 97.9 F Pulse Rate 92 101 H 92 Respiratory 18 Rate Blood Pressure 138/87 O2 Sat by Pulse 94 L Oximetry - Reevaluation(s) Reevaluation #1: 10/06/24 14:05 Case discussed with [place], Dr. Carpenter for admission. Medical Decision Making - Medical Decision Making Was pt. sent in by a medical professional or institution (, PA, SENIOR SYSTEMS DEVELOPER, urgent care, hospital, or long term...) When possible be specific @ -No Did you speak to anyone other than the patient for history (EMS, parent, family, police, friend...)? What history was obtained from this source @ -Family, at bedside, aiding in HPI and past medical history. Did you review nursing and triage notes (agree or disagree)? Why? @ -I reviewed and agree with nursing and triage notes Were old charts reviewed (outside hosp., previous admission, EMS record, old EKG, old radiological studies, urgent care reports/EKG's, long term records)? Report findings @ -No old charts were reviewed Differential Diagnosis (chest pain, altered mental status, abdominal pain women, abdominal pain men, vaginal bleeding, weakness, fever, dyspnea, syncope, headache, dizziness, GI bleed, back pain, seizure, CVA, palpatations, mental health, musculoskeletal)? @ -Differential Dyspnea:Coronary syndrome, arrhythmia, tamponade, asthma, COPD, pulmonary embolism, pneumonia, pneumothorax, pulmonary effusion, anaphylaxis, diabetic ketoacidosis, flailed chest, pulmonary contusion, diaphragmatic rupture, anemia, neuromuscular, this is not meant to be an all-inclusive list. EKG interpreted by me (3pts min.). @ -As above X-rays interpreted by me (1pt min.). @ -CXR interpreted me negative for acute cardiopulmonary process. CT interpreted by me (1pt min.). @ -None done U/S interpreted by me (1pt. min.). @ -None done What testing was considered but not performed or refused? (CT, X-rays, U/S, labs)? Why? @ -None What meds were considered but not given or refused? Why? @ -None Did you discuss the management of the patient with other professionals (professionals i.e. , KARIME, SENIOR SYSTEMS DEVELOPER, lab, RT, psych nurse, social media developer, program host, teacher, plant protection officer, child welfare caseworker)? Give summary @ -Yes, case discussed with [place] Carpenter for admission. Was smoking cessation discussed for >3mins.? @ -I discussed smoking cessation for greater than 3 minutes. The risk of smoking were discussed with the patient including but not limited to risks of cancer, stroke, coronary artery disease and COPD. Also discussed with patient were multiple methods of quitting smoking. Lastly we discussed the financial cost of smoking. Was critical care preformed (if so, how long)? @ -No Were there social determinants of health that impacted care today? How? (Homelessness, low income, unemployed, alcoholism, drug addiction, transportation, low edu. Level, literacy, decrease access to med. care, residential, rehab)? @ -No Was there de-escalation of care discussed even if they declined (Discuss DNR or withdrawal of care, Hospice)? DNR status @ -No What co-morbidities impacted this encounter? (DM, HTN, Smoking, COPD, CAD, Cancer, CVA, ARF, Chemo, Hep., AIDS, mental health diagnosis, sleep apnea, morbid obesity)? @ -COPD, thyroid disorder, fibromyalgia Was patient admitted / discharged? Hospital course, mention meds given and route, prescriptions, significant lab abnormalities, going to OR and other pertinent info. @ - Admitted. 59-year-old female presented to the ER for evaluation of shortness of breath. History and physical exam completed. Vitals upon arrival stable. Patient's oxygen saturation 94% on 3.5L nasal cannula oxygen. She states this is typical amount of oxygen she uses. Patient is wheezing on exam and mild signs of respiratory distress. Laboratory studies obtained remarkable for a WBC of 14.8 with a left shift this is likely due to patient's smoking habits. Troponin undetectable. BNP 154. Chest x-ray and negative for acute process. Viral swabs negative. Patient given DuoNeb treatment and IV Solu- Medrol in the ER with mild improvement of symptoms. Admission considered and discussed with [place]. [place] for COPD exacerbation. Patient is agreeable for admission. Patient started on azithromycin. Case discussed with the attending of Dr. Ham. Undiagnosed new problem with uncertain prognosis? @ -No Drug Therapy requiring intensive monitoring for toxicity (Heparin, Nitro, Insulin, Cardizem)? @ -No Were any procedures done? @ -No Diagnosis/symptom? @ -COPD exacerbation/nicotine dependence Acute, or Chronic, or Acute on Chronic? @ -Acute on chronic Uncomplicated (without systemic symptoms) or Complicated (systemic symptoms)? @ -Complicated Side effects of treatment? @ -No Exacerbation, Progression, or Severe Exacerbation? @ -Exacerbation Poses a threat to life or bodily function? How? (Chest pain, [place], [place], pneumonia, PE, COPD, DKA, ARF, appy, cholecystitis, CVA, Diverticulitis, Homicidal, Suicidal, threat to staff... and all critical care pts) @ -Yes, COPD can lead to respiratory failure. - Lab Data Result diagrams: 10/06/24 11:59 10/06/24 11:59 Lab Results 10/06/24 10/06/24 10/06/24 Range/Units 11:59 11:59 11:59 WBC 14.8 H (3.8-10.6) k/uL RBC 4.86 (3.80-5.40) m/uL Hgb 14.7 (11.4-16.0) gm/dL Hct 45.1 (34.0-46.0) % MCV 92.8 (80.0-100.0) fL MCH 30.3 (25.0-35.0) pg MCHC 32.6 (31.0-37.0) g/dL RDW 13.0 (11.5-15.5) % Plt Count 298 (150-450) k/uL MPV 9.5 Neutrophils % 56 % Lymphocytes % 29 % Monocytes % 6 % Eosinophils % 6 % Basophils % 1 % Neutrophils # 8.3 H (1.3-7.7) k/uL Lymphocytes # 4.3 (1.0-4.8) k/uL Monocytes # 0.9 (0-1.0) k/uL Eosinophils # 0.9 H (0-0.7) k/uL Basophils # 0.1 (0-0.2) k/uL PT 10.6 (10.0-12.5) sec INR 1.0 (<1.2) APTT 25.2 (22.0-30.0) sec Sodium 137 (137-145) mmol/L Potassium 5.6 H (3.5-5.1) mmol/L Chloride 103 (98-107) mmol/L Carbon Dioxide 28 (22-30) mmol/L Anion Gap 6 mmol/L BUN 10 (7-17) mg/dL Creatinine 0.60 (0.52-1.04) mg/dL Est GFR (CKD-EPI)AfAm >90 (>60 ml/min/1.73 sqM) Est GFR (CKD-EPI)NonAf >90 (>60 ml/min/1.73 sqM) Glucose 106 H (74-99) mg/dL Plasma Lactic Acid Tani (0.7-2.0) mmol/L Calcium 9.9 (8.4-10.2) mg/dL Total Bilirubin 1.3 (0.2-1.3) mg/dL AST 40 H (14-36) U/L ALT 23 (4-34) U/L Alkaline Phosphatase 127 H (38-126) U/L Troponin I (0.000-0.034) ng/mL NT-Pro-B Natriuret Pep 154 pg/mL Total Protein 7.6 (6.3-8.2) g/dL Albumin 4.6 (3.5-5.0) g/dL Influenza Type A (PCR) (Not Detectd) Influenza Type B (PCR) (Not Detectd) RSV (PCR) (Not Detectd) SARS-CoV-2 (PCR) (Not Detectd) 10/06/24 10/06/24 10/06/24 Range/Units 11:59 11:59 11:59 WBC (3.8-10.6) k/uL RBC (3.80-5.40) m/uL Hgb (11.4-16.0) gm/dL Hct (34.0-46.0) % MCV (80.0-100.0) fL MCH (25.0-35.0) pg MCHC (31.0-37.0) g/dL RDW (11.5-15.5) % Plt Count (150-450) k/uL MPV Neutrophils % % Lymphocytes % % Monocytes % % Eosinophils % % Basophils % % Neutrophils # (1.3-7.7) k/uL Lymphocytes # (1.0-4.8) k/uL Monocytes # (0-1.0) k/uL Eosinophils # (0-0.7) k/uL Basophils # (0-0.2) k/uL PT (10.0-12.5) sec INR (<1.2) APTT (22.0-30.0) sec Sodium (137-145) mmol/L Potassium (3.5-5.1) mmol/L Chloride (98-107) mmol/L Carbon Dioxide (22-30) mmol/L Anion Gap mmol/L BUN (7-17) mg/dL Creatinine (0.52-1.04) mg/dL Est GFR (CKD-EPI)AfAm (>60 ml/min/1.73 sqM) Est GFR (CKD-EPI)NonAf (>60 ml/min/1.73 sqM) Glucose (74-99) mg/dL Plasma Lactic Acid Tani 1.1 (0.7-2.0) mmol/L Calcium (8.4-10.2) mg/dL Total Bilirubin (0.2-1.3) mg/dL AST (14-36) U/L ALT (4-34) U/L Alkaline Phosphatase (38-126) U/L Troponin I <0.012 (0.000-0.034) ng/mL NT-Pro-B Natriuret Pep pg/mL Total Protein (6.3-8.2) g/dL Albumin (3.5-5.0) g/dL Influenza Type A (PCR) Not Detected (Not Detectd) Influenza Type B (PCR) Not Detected (Not Detectd) RSV (PCR) Not Detected (Not Detectd) SARS-CoV-2 (PCR) Not Detected (Not Detectd) - EKG Data -: EKG Interpreted by [facility] EKG Comments: EKG taken at 11: 26 showing a sinus rhythm no acute ST segment abnormalities. No T wave abnormalities. Normal axis. Ventricular rate 89, OK interval 115, QRS duration 89, QT/QTc 339/386. - Radiology Data Radiology results: report reviewed, image reviewed Disposition Clinical Impression: COPD exacerbation, Nicotine dependence Disposition: ADMITTED IP TO THIS HOSP Condition: Stable Referrals: Gricelda Murdock MD [Primary Care Provider] - 1-2 days Time of Disposition: 14:05
[2024-10-06] MEDS: IPRATROPIUM-ALBUTEROL 3 ML NEB INHALATION STA (12:02)
--- NOTE | 2024-10-06 12:14 | XR ---
Chest, 2 view. HISTORY: Difficulty breathing COMPARISON: 08/19/2023 TECHNIQUE: PA and lateral views the chest are obtained. FINDINGS: The lungs are clear and there is no consolidative or interstitial opacity. There is no pleural effusion or pneumothorax. The heart, pulmonary vasculature, mediastinum and chitra appear normal. The osseous structures are intact. IMPRESSION: No significant abnormality seen. No acute cardiopulmonary disease. [facility], , 10/06/2024 12:12 PM
[2024-10-06 12:30] LABS: Basophils # (A) 0.1 k/uL (0-0.2); Basophils % (A) 1 %; Eosinophils # (A) 0.9 k/uL (0-0.7); Eosinophils % (A) 6 %; HCT 45.1 % (34.0-46.0); HGB 14.7 gm/dL (11.4-16.0); Lymphocytes # (A) 4.3 k/uL (1.0-4.8); Lymphocytes % (A) 29 %; MCH 30.3 pg (25.0-35.0); MCHC 32.6 g/dL (31.0-37.0); MCV 92.8 fL (80.0-100.0); Mean Platelet Volume 9.5; Monocytes # (A) 0.9 k/uL (0-1.0); Monocytes % (A) 6 %; Neutrophils # (A) 8.3 k/uL (1.3-7.7); Neutrophils % (A) 56 %; Platelet Count 298 k/uL (150-450); RBC 4.86 m/uL (3.80-5.40); WBC 14.8 k/uL (3.8-10.6)
[2024-10-06 12:45] LABS: ALT 23 U/L (4-34); African American GFR (CKD) >90 (>60 ml/min/1.73 sqM); Anion Gap 6 mmol/L; Blood Urea Nitrogen 10 mg/dL (7-17); Calcium 9.9 mg/dL (8.4-10.2); Carbon Dioxide 28 mmol/L (22-30); Chloride 103 mmol/L (98-107); Glucose 106 mg/dL (74-99); Non-African American GFR(CKD) >90 (>60 ml/min/1.73 sqM); Sodium 137 mmol/L (137-145); Total Bilirubin 1.3 mg/dL (0.2-1.3)
[2024-10-06 12:51] LABS: NT-Pro-B-Type Natriuretic Pept 154 pg/mL
[2024-10-06 12:58] LABS: Partial Thromboplastin Time 25.2 sec (22.0-30.0); Prothrombin Time 10.6 sec (10.0-12.5)
[2024-10-06 13:10] LABS: AST 40 U/L (14-36); Albumin 4.6 g/dL (3.5-5.0); Alkaline Phosphatase 127 U/L (38-126); Potassium 5.6 mmol/L (3.5-5.1); Total Protein 7.6 g/dL (6.3-8.2)
[2024-10-06] MEDS ORDERED: NALOXONE 0.4 MG/ML 1 ML VIAL IV PRN (14:10)
[2024-10-06] MEDS ORDERED: ONDANSETRON 4 MG/2 ML VIAL IVP PRN (14:11)
[2024-10-06] MEDS: AZITHROMYCIN 500 MG TAB PO STA (14:24)
[2024-10-06] MEDS: SODIUM CHLORIDE 0.9% 1,000 ML IV SCH (14:24)
[2024-10-06] MEDS: HYDROmorphone 1 MG/ML 1 ML SYRINGE IVP STA (14:43)
[2024-10-06] MEDS ORDERED: IPRATROPIUM-ALBUTEROL 3 ML NEB INHALATION PRN (15:11)
[2024-10-06] MEDS: NICOTINE 14MG/24HR PATCH TRANSDERM SCH (15:24)
[2024-10-06] MEDS: PREGABALIN 75 MG CAP PO SCH (15:52)
[2024-10-06] MEDS: IPRATROPIUM-ALBUTEROL 3 ML NEB INHALATION SCH (15:54)
[2024-10-06] MEDS: methylPREDNISolone SOD SUCCI 125 MG/2 ML VIAL IV SCH (18:08)
[2024-10-06] MEDS: HEPARIN SODIUM,PORCINE 5,000 UNIT/ML 1 ML VIAL SQ SCH (20:06)
[2024-10-06] MEDS: SYMBICORT 160-4.5 MCG INHALER INHALATION SCH (20:48)
--- NOTE | 2024-10-06 20:57 | P.CNPUL ---
History of Present Illness Consult date: 10/06/24 Reason for consult: dyspnea, COPD History of present illness: This is a 59-year-old female patient, known history of COPD followed up in our office by Dr. Wilde, maintained on Trelegy Ellipta 1 puff a day and oxygen overnight. The patient ran out of her inhaler and she stopped the inhaler approximately a month ago. She is a chronic smoker and she smokes 1 pack of cigarettes a day. Most recent low-dose CAT scan of the chest that was done on this patient 09/07/2024 showed a chronic right middle lobe scar. No evidence of any pulm nodules or lesions. The patient is coming in with increased dyspnea cough chest tightness and wheezing. Chest x-ray done in the emergency that showed no acute abnormalities. Viral screen has been negative. proBNP level is 154. Troponins are negative. Electrolytes are showing a potassium level of 5.6, otherwise normal. Normal renal function. White cell count is 14.8. Accordingly, the patient was hospitalized for an acuity of exacerbation. She is actively bronchospastic and wheezy. She is on DuoNeb nebulizers [id number]. She is on Rocephin and Zithromax and IV Solu-Medrol. Limited sputum production. No nausea. No vomiting. No diarrhea. No chest pain. Noted the patient has been maintained on Plaquenil for history of Sjogren's disease. The patient also has previous splenectomy. Her last hospitalization for COPD and complication was back in January 2023. Review of Systems Constitutional: Reports fatigue Eyes: denies as per HPI, denies blurred vision, denies bulging eye, denies decreased vision, denies diplopia, denies discharge, denies dry eye, denies irritation, denies itching, denies pain, denies photophobia, denies loss of peripheral vision, denies loss of vision, denies tunnel vision/blind spots Ears: deny: decreased hearing, ear discharge, earache, tinnitus Breasts: absent: as per HPI, change in shape, gynecomastia, masses, nipple discharge, pain, skin changes, swelling Cardiovascular: Reports decreased exercise tolerance, Reports dyspnea on exertion Respiratory: Reports cough, Reports dyspnea, Reports home oxygen, Reports respiratory infections, Reports wheezing Gastrointestinal: Reports as per HPI Genitourinary: Reports as per HPI Menstruation: Reports as per HPI Musculoskeletal: Reports as per HPI Musculoskeletal: absent: ankle pain, ankle stiffness, ankle swelling, as per HPI, elbow pain, elbow stiffness, elbow swelling, foot pain, foot stiffness, foot swelling, hand pain, hand stiffness, hand swelling, hip pain, hip stiffness, hip swelling, knee pain, knee stiffness, knee swelling, shoulder pain, shoulder stiffness, shoulder swelling, wrist pain, wrist stiffness, wrist swelling Integumentary: Reports as per HPI Neurological: Reports as per HPI Psychiatric: Reports as per HPI Endocrine: Reports as per HPI Hematologic/Lymphatic: Reports as per HPI Allergic/Immunologic: Reports as per HPI Past Medical History Past Medical History: Fibromyalgia, Osteoarthritis (OA), Pneumonia, Thyroid Disorder Additional Past Medical History / Comment(s): migraines, "racing" heart rate, varicose veins, ulcer, lupus, sjogrens, thrombocytopeia, sinus issues History of Any Multi-Drug Resistant Organisms: None Reported Past Surgical History: Orthopedic Surgery Additional Past Surgical History / Comment(s): spleenectomy, laparaoscy, alon cataracts with lens implants, cervical fusion x 2, lumbar fusion, alon carpal tunnel, rt leg "ablation" for a leak in a vein, Past Anesthesia/Blood Transfusion Reactions: No Reported Reaction Additional Past Anesthesia/Blood Transfusion Reaction / Comment(s): hypotensive after THR thought to be from nadolol, pt. now takes metoprolol Past Psychological History: No Psychological Hx Reported Smoking Status: Current every day smoker, Vaper Past Alcohol Use History: Occasional Past Drug Use History: None Reported - Past Family History Mother Family Medical History: Cancer, Coronary Artery Disease (CAD) Additional Family Medical History / Comment(s): colon Medications and Allergies Home Medications Medication Instructions Recorded Confirmed Type Atorvastatin [Lipitor] 20 mg PO DAILY 03/22/20 10/06/24 History DULoxetine HCL [Cymbalta] 60 mg PO DAILY 03/22/20 10/06/24 History Hydroxychloroquine Sulfate 400 mg PO DAILY 03/22/20 10/06/24 History [Plaquenil] Levothyroxine Sodium [Synthroid] 100 mcg PO DAILY 03/22/20 10/06/24 History Morphine Sulfate [Ms Contin] 30 mg PO BID 03/22/20 10/06/24 History Metoprolol Succinate (ER) [Toprol 50 mg PO DAILY #30 tab 03/28/20 10/06/24 Rx XL] Pregabalin [Lyrica] 150 mg PO TID 02/18/21 10/06/24 History Albuterol Inhaler [Ventolin Hfa 2 puff INHALATION RT-QID PRN 02/10/23 10/06/24 History Inhaler] Clindamycin Phos/Benzoyl Perox 1 applic TOPICAL DAILY PRN 10/06/24 10/06/24 Hist ory [Benzaclin Gel 1-5%] Fluticasone/Umeclidin/Vilanter 1 puff INHALATION RT-DAILY 10/06/24 10/06/24 History [Trelegy Ellipta 100-62.5-25] oxyCODONE HCL [Oxycodone HCl] 10 mg PO BID 10/06/24 10/06/24 History Allergies Allergy/AdvReac Type Severity Reaction Status Date / Time Androgenic Anabolic Steroid AdvReac Unknown Verified 10/06/24 13:14 Antihistamines - Alkylamine AdvReac Unknown Verified 10/06/24 13:14 Physical Exam Vitals: Vital Signs Temp Pulse Pulse Resp BP BP Pulse Ox 10/06/24 20:50 82 10/06/24 20:00 97.8 F 82 20 131/80 94 L 10/06/24 18:17 97.8 F 87 20 122/72 95 10/06/24 16:15 97 20 113/83 94 L 10/06/24 16:04 78 10/06/24 15:54 90 10/06/24 12:10 92 10/06/24 12:02 101 H 10/06/24 11:08 97.9 F 92 18 138/87 94 L Intake and Output 10/06/24 10/06/24 10/06/24 06:59 14:59 22:59 Other: Weight 120.202 kg The patient appeared well nourished and normally developed. Vital signs as documented. Obese with a BMI of 42 Head exam is unremarkable. No scleral icterus or corneal arcus noted. Neck is without jugular venous distension, thyromegaly, or carotid bruits. Carotid upstrokes are brisk bilaterally. Lungs are showing diminished breath sounds along with diffuse expiratory wheezes throughout the lung burger bilaterally Cardiac exam reveals the PMI to be normally sized and situated. Rhythm is regular. First and second heart sounds normal. No murmurs, rubs or gallops. Abdominal exam reveals normal bowel sounds, no masses, no organomegaly and no aortic enlargement. Extremities are nonedematous and both femoral and pedal pulses are normal. Examination of the skin revealed no evidence of significant rashes, suspicious appearing nevi or other concerning lesions. Neurologically, the patient is awake and alert and the patient does not have any focal neurological deficit. Cranial nerves are essentially intact. Results - Laboratory Findings CBC and BMP: 10/06/24 11:59 10/06/24 11:59 PT/INR, D-dimer PT 10.6 sec (10.0-12.5) 10/06/24 11:59 INR 1.0 (<1.2) 10/06/24 11:59 Abnormal lab findings: Abnormal Labs 10/06/24 10/06/24 11:59 11:59 WBC 14.8 H Neutrophils # 8.3 H Eosinophils # 0.9 H Potassium 5.6 H Glucose 106 H AST 40 H Alkaline Phosphatase 127 H Assessment and Plan Plan: Acute exacerbation of COPD with secondary shortness of breath and acute bronchospasm and wheezing COPD maintained on Trelegy Ellipta on outpatient basis in addition to O2 overnight Acute hypoxic respiratory failure and the patient is currently on O2 at 3 L/min nasal cannula. Chronic right middle lobe scar as evident on a low-dose CAT scan of the chest from August 2024 Fibromyalgia Sjogren's disease maintained on Plaquenil Previous history of splenectomy Hyperlipidemia Fibromyalgia Osteoarthritis Hypothyroidism Leukocytosis likely secondary to above Hyperlipidemia Previous splenectomy Chronic smoker Plan Supplemental O2 to maintain saturation above 90% currently on 3 L DuoNeb nebulized treatments 4 times a day IV Solu-Medrol Rocephin and Zithromax Resume home medications Allow the patient to utilize Trelegy Ellipta from home Smoking cessation counseling Nicotine patch IV fluids with normal saline at rate of 75 cc an hour Will follow
[2024-10-06] MEDS: MORPHINE SULFATE ER 30 MG TABLET PO SCH (21:29)
--- NOTE | 2024-10-07 01:55 | HP ---
HISTORY AND PHYSICAL CHIEF COMPLAINT: Shortness of breath and weakness. HISTORY OF PRESENT ILLNESS: This is a 59-year-old woman with a past medical history of COPD, is not feeling well over the past several days. The patient has increasing shortness of breath and cough and increased amount of sputum. The patient came to [facility] and was admitted for further evaluation and treatment. White count was elevated. COVID-19 was negative. There is no history of any headache, loss of consciousness, or seizures at this time. The patient is using 3.3 L oxygen at home. PAST MEDICAL HISTORY: Reviewed include fibromyalgia, DJD, history of pneumonia, Lupus, Sjogren's. HOME MEDICATIONS: Oxycodone. Rest of medications and doses reviewed. ALLERGIES: Antihistamines. FAMILY HISTORY: History of CAD, cancer. SOCIAL HISTORY: History of vaping, smoking. REVIEW OF SYSTEMS: Fourteen-point review of systems is negative except as mentioned earlier. PHYSICAL EXAMINATION: VITAL SIGNS: Pulse is 101, blood pressure 130/88, respirations 18. HEENT: Conjunctivae normal. NECK: No JVD. CARDIOVASCULAR: S1, S2. RESPIRATIONS: Breath sounds diminished at the bases. Bilateral scattered rhonchi and crackles. Bronchovascular breathing in the posterior aspects also present. ABDOMEN: Soft, nontender. LEGS: No edema. NERVOUS SYSTEM: No focal deficits. LABORATORY DATA: Reviewed. ASSESSMENT: 1. Chronic obstructive pulmonary disease acute exacerbation with possible acute bilateral pneumonia with possibly atypical pneumonia or bronchopneumonia. 2. Elevated WBC. 3. Fibromyalgia. 4. History of pneumonia. 5. History of splenectomy. 6. History of cervical fusion. 7. History of lupus. 8. History of Sjogren's. RECOMMENDATIONS: This is a 59-year-old woman, who presented with multiple complex medical issues. We will monitor the patient closely. The patient had most likely pneumonia because of the profound immunosuppression and as well as coarse crackles and bronchovascular breathing heard on the back. Otherwise, I would recommend resume the home medications, bronchodilators, Pulmonary consultation, Infectious Disease evaluation. Prognosis guarded. Further recommendations to follow. MMODL / IJN: [id number] /
[2024-10-07 04:29] LABS: Mycoplasma IgG Antibody (EIA) 2.56 INDEX (<=0.90); Mycoplasma IgM Antibody 0.13 INDEX (<=0.90)
[2024-10-07] MEDS: PANTOPRAZOLE 40 MG TABLET PO SCH (06:43)
[2024-10-07] MEDS: LEVOTHYROXINE 100 MCG TAB PO SCH (06:43)
[2024-10-07 08:46] LABS: Basophils # (A) 0.02 X 10*3/uL (0.00-0.10); Basophils % (A) 0.1 %; Eosinophils # (A) 0.01 X 10*3/uL (0.04-0.35); Eosinophils % (A) 0.1 %; HCT 41.4 % (37.2-46.3); HGB 13.6 g/dL (12.0-15.0); Lymphocytes # (A) 3.82 X 10*3/uL (0.90-5.00); Lymphocytes % (A) 22.3 %; MCHC 32.9 g/dL (32.0-37.0); MCV 91.2 FL (80.0-97.0); Mean Platelet Volume 11.8 FL (9.5-12.2); Monocytes # (A) 0.43 X 10*3/uL (0.20-1.00); Monocytes % (A) 2.5 %; NRBC Per 100 WBC 0 X 10*3/uL (0.00-0.01); Neutrophils # (A) 12.75 X 10*3/uL (1.80-7.70); Neutrophils % (A) 74.5 %; Platelet Count 311 X 10*3/uL (140-440); RBC 4.54 X 10*6/uL (4.10-5.20); RDW 13.5 % (11.5-14.5); WBC 17.11 X 10*3/uL (4.50-10.00)
[2024-10-07 09:15] LABS: Blood Urea Nitrogen 13.8 mg/dL (9.0-27.0); Carbon Dioxide 24.6 mmol/L (21.6-31.8); Chloride 104 mmol/L (96-109); Glucose 148 mg/dL (70-110); Potassium 4.6 mmol/L (3.5-5.5); Sodium 141 mmol/L (135-145)
[2024-10-07 09:16] LABS: Calcium 9.4 mg/dL (8.7-10.3)
--- NOTE | 2024-10-07 09:25 | P.CONS ---
History of Present Illness - Reason for Consult Consult date: 10/06/24 Pneumonia Requesting physician: Jose J Carpenter - Chief Complaint Shortness of breath x 1 week - History of Present Illness Patient is a 59-year-old female with a past medical history significant fibromyalgia osteoarthritis pneumonia and thyroid disorder patient did have a history of smoking and trying to cut back has been brought into the hospital via EMS for evaluation of dyspnea apparently the patient has been dealing with increasing shortness of that has been progressive getting worse over the last 1 week shortness of breath on exertion and even at rest patient usually wears 3.5 L nasal cannula oxygen intermittently throughout the day at night patient also complaining of a cough which has been mild to moderate intensity with occasional sputum production denies having any pleuritic chest pain, patient denies having any nausea vomiting no abdominal pain no diarrhea on presentation to the hospital the patient was afebrile no fever have been recorded subsequently patient was not tachycardic hypotensive she was mildly hypoxic with O2 sats of 94% and is currently on a 3 to nasal cannula oxygen patient did have white count of 14.8 with a left shift creatinine 0.60 electrolyte has been normal AST mildly elevated rest liver enzymes normal patient tested negative for influenza RSV and COVID patient did have a chest x- ray no significant abdominal was seen no acute cardiopulmonary disease process patient was started on Rocephin and Zithromax infectious is consulted concerning for pneumonia Review of Systems Positive point and negatives has been mentioned in the HPI, complete review of systems was performed and all other systems are negative Past Medical History Past Medical History: Fibromyalgia, Osteoarthritis (OA), Pneumonia, Thyroid Disorder Additional Past Medical History / Comment(s): migraines, "racing" heart rate, varicose veins, ulcer, lupus, sjogrens, thrombocytopeia, sinus issues History of Any Multi-Drug Resistant Organisms: None Reported Past Surgical History: Orthopedic Surgery Additional Past Surgical History / Comment(s): spleenectomy, laparaoscy, alon ca taracts with lens implants, cervical fusion x 2, lumbar fusion, alon carpal tunnel, rt leg "ablation" for a leak in a vein, Past Anesthesia/Blood Transfusion Reactions: No Reported Reaction Additional Past Anesthesia/Blood Transfusion Reaction / Comm: hypotensive after THR thought to be from nadolol, pt. now takes metoprolol Past Psychological History: No Psychological Hx Reported Smoking Status: Current every day smoker, Vaper Past Alcohol Use History: Occasional Past Drug Use History: None Reported - Past Family History Mother Family Medical History: Cancer, Coronary Artery Disease (CAD) Additional Family Medical History / Comment(s): colon Medications and Allergies Home Medications Medication Instructions Recorded Confirmed Type Atorvastatin [Lipitor] 20 mg PO DAILY 03/22/20 10/06/24 History DULoxetine HCL [Cymbalta] 60 mg PO DAILY 03/22/20 10/06/24 History Hydroxychloroquine Sulfate 400 mg PO DAILY 03/22/20 10/06/24 History [Plaquenil] Levothyroxine Sodium [Synthroid] 100 mcg PO DAILY 03/22/20 10/06/24 History Morphine Sulfate [Ms Contin] 30 mg PO BID 03/22/20 10/06/24 History Metoprolol Succinate (ER) [Toprol 50 mg PO DAILY #30 tab 03/28/20 10/06/24 Rx XL] Pregabalin [Lyrica] 150 mg PO TID 02/18/21 10/06/24 History Albuterol Inhaler [Ventolin Hfa 2 puff INHALATION RT-QID PRN 02/10/23 10/06/24 History Inhaler] Clindamycin Phos/Benzoyl Perox 1 applic TOPICAL DAILY PRN 10/06/24 10/06/24 History [Benzaclin Gel 1-5%] Fluticasone/Umeclidin/Vilanter 1 puff INHALATION RT-DAILY 10/06/24 10/06/24 History [Trelegy Ellipta 100-62.5-25] oxyCODONE HCL [Oxycodone HCl] 10 mg PO BID 10/06/24 10/06/24 History Allergies Allergy/AdvReac Type Severity Reaction Status Date / Time Androgenic Anabolic Steroid AdvReac Unknown Verified 10/06/24 13:14 Antihistamines - Alkylamine AdvReac Unknown Verified 10/06/24 13:14 Physical Exam Vitals: Vital Signs Temp Pulse Resp BP Pulse Ox 10/06/24 12:10 92 10/06/24 12:02 101 H 10/06/24 11:08 97.9 F 92 18 138/87 94 L Intake and Output 10/06/24 10/06/24 10/06/24 06:59 14:59 22:59 Other: Weight 120.202 kg GENERAL DESCRIPTION: Middle-aged female lying in bed, no distress. No tachypnea or accessory muscle of respiration use. HEENT: Shows Pallor , no scleral icterus. Oral mucous membrane is dry. NECK: Trachea central, no thyromegaly. LUNGS: Unlabored breathing. Coarse breath sounds bilaterally HEART: S1, S2, regular rate and rhythm. No loud murmur ABDOMEN: Soft, no tenderness , guarding or rigidity, no organomegaly EXTREMITIES: No edema of feet. SKIN: No rash, no masses palpable. NEUROLOGICAL: The patient is awake, alert, oriented x3, mood and affect normal. Results CBC & Chem 7: 10/07/24 04:25 10/07/24 04:25 Labs: Abnormal Lab Results - Last 24 Hours (Table) 10/06/24 10/06/24 Range/Units 11:59 11:59 WBC 14.8 H (3.8-10.6) k/uL Neutrophils # 8.3 H (1.3-7.7) k/uL Eosinophils # 0.9 H (0-0.7) k/uL Potassium 5.6 H (3.5-5.1) mmol/L Glucose 106 H (74-99) mg/dL AST 40 H (14-36) U/L Alkaline Phosphatase 127 H (38-126) U/L Assessment and Plan (1) Leukocytosis Current Visit: Yes Status: Acute Code(s): D72.829 - ELEVATED WHITE BLOOD CELL COUNT, UNSPECIFIED SNOMED Code(s): 329279839 (2) Community acquired pneumonia Current Visit: No Status: Acute Code(s): J18.9 - PNEUMONIA, UNSPECIFIED ORGANISM SNOMED Code(s): 398888679 Plan: 1patient presented to hospital with increasing shortness of breath cough patient did have elevated white count though initial chest x-ray reported negative for any acute infiltrate likely dealing with COPD exacerbation with purulent tracheobronchitis and pneumonia not entirely excluded. 2try to obtain a sputum for Gram stain and culture. 3patient be empirically treated with Rocephin and Zithromax while waiting for the workup to be completed. We will follow on clinical condition and cultures to further adjust medication if needed Thank you for this consultation we will follow the patient along with you Dictation was produced using [employer] software. please excuse any grammatical, word or spelling errors. Time with Patient: Greater than 30
[2024-10-07] MEDS: HYDROXYCHLOROQUINE SULFATE 200 MG TAB PO SCH (10:17)
[2024-10-07] MEDS: MULTIVITAMINS, THERA 1 EACH TAB PO SCH (10:18)
[2024-10-07] MEDS: ATORVASTATIN 20 MG TAB PO SCH (10:18)
[2024-10-07] MEDS: METOPROLOL SUCCINATE (ER) 50 MG TAB.ER.24H PO SCH (10:18)
[2024-10-07] MEDS: DULoxetine HCL 60 MG CAPSULE.DR PO SCH (10:18)
[2024-10-07] MEDS: AZITHROMYCIN 500 MG in SODIUM CHLORIDE 0.9% 250 ML IVPB SCH (11:32)
[2024-10-07] MEDS: ACETAMINOPHEN TAB 325 MG TAB PO PRN (13:01)
--- NOTE | 2024-10-07 16:01 | P.PN ---
Subjective Progress Note Date: 10/07/24 This is a 59-year-old female patient, known history of COPD followed up in our office by Dr. Wilde, maintained on Trelegy Ellipta 1 puff a day and oxygen overnight. The patient ran out of her inhaler and she stopped the inhaler approximately a month ago. She is a chronic smoker and she smokes 1 pack of cigarettes a day. Most recent low-dose CAT scan of the chest that was done on this patient 09/07/2024 showed a chronic right middle lobe scar. No evidence of any pulm nodules or lesions. The patient is coming in with increased dyspnea cough chest tightness and wheezing. Chest x-ray done in the emergency that showed no acute abnormalities. Viral screen has been negative. proBNP level is 154. Troponins are negative. Electrolytes are showing a potassium level of 5.6, otherwise normal. Normal renal function. White cell count is 14.8. Accordingly, the patient was hospitalized for an acuity of exacerbation. She is actively bronchospastic and wheezy. She is on DuoNeb nebulizers aroun d-the-clock. She is on Rocephin and Zithromax and IV Solu-Medrol. Limited sputum production. No nausea. No vomiting. No diarrhea. No chest pain. Noted the patient has been maintained on Plaquenil for history of Sjogren's disease. The patient also has previous splenectomy. Her last hospitalization for COPD and complication was back in January 2023. On 10/07/2024, the patient is slightly improved compared to yesterday. The patient is being treated for acute COPD exacerbation. No new complaints otherwise for now. She remains on bronchodilators. She remains on empiric antibiotic coverage with a combination of Rocephin and Zithromax. She is on Symbicort as maintenance and she is also receiving IV Solu-Medrol 40 mg every 8 hours. She has a nicotine patch. She is also on normal citrate of 75 cc an hour. Labs from today shows a white cell count of 17, hemoglobin 13.6 and electrolytes all within normal limits with a BUN of 13 and a creatinine of 0.6. proBNP level was 154. Legionella urine antigen was negative. Viral screen was also negative. Objective - Vital Signs Vital signs: Vital Signs Temp 97.8 F 10/07/24 07:00 Pulse 80 10/07/24 12:22 Resp 16 12/20/24 07:00 BP 133/65 10/07/24 07:00 Pulse Ox 95 10/07/24 07:00 FiO2 Intake & Output 10/06/24 10/07/24 10/07/24 18:59 06:59 18:59 Weight 120.202 kg Other: Voiding Method Toilet # Voids 3 1 - Exam The patient appeared well nourished and normally developed. Vital signs as documented. Obese with a BMI of 42 Head exam is unremarkable. No scleral icterus or corneal arcus noted. Neck is without jugular venous distension, thyromegaly, or carotid bruits. Carot id upstrokes are brisk bilaterally. Lungs are showing diminished breath sounds along with diffuse expiratory wheezes throughout the lung burger bilaterally Cardiac exam reveals the PMI to be normally sized and situated. Rhythm is regular. First and second heart sounds normal. No murmurs, rubs or gallops. Abdominal exam reveals normal bowel sounds, no masses, no organomegaly and no aortic enlargement. Extremities are nonedematous and both femoral and pedal pulses are normal. Examination of the skin revealed no evidence of significant rashes, suspicious appearing nevi or other concerning lesions. Neurologically, the patient is awake and alert and the patient does not have any focal neurological deficit. Cranial nerves are essentially intact. - Labs CBC & Chem 7: 10/07/24 04:25 10/07/24 04:25 Labs: Abnormal Lab Results - Last 24 Hours (Table) 10/06/24 10/06/24 10/07/24 Range/Units 11:59 11:59 04:25 WBC 17.11 H (4.50-10.00) X 10*3/uL Immature Gran # 0.08 H (0.00-0.04) X 10*3/uL Neutrophils # 12.75 H (1.80-7.70) X 10*3/uL Eosinophils # 0.01 L (0.04-0.35) X 10*3/uL Potassium 5.6 H (3.5-5.1) mmol/L Anion Gap (4.00-12.00) mmol/L BUN/Creatinine Ratio (12.00-20.00) Ratio Glucose 106 H (74-99) mg/dL AST 40 H (14-36) U/L Alkaline Phosphatase 127 H (38-126) U/L Mycoplasma pneumon IgG 2.56 H (<=0.90) INDEX 10/07/24 Range/Units 04:25 WBC (4.50-10.00) X 10*3/uL Immature Gran # (0.00-0.04) X 10*3/uL Neutrophils # (1.80-7.70) X 10*3/uL Eosinophils # (0.04-0.35) X 10*3/uL Potassium (3.5-5.1) mmol/L Anion Gap 12.40 H (4.00-12.00) mmol/L BUN/Creatinine Ratio 23.00 H (12.00-20.00) Ratio Glucose 148 H (74-99) mg/dL AST (14-36) U/L Alkaline Phosphatase (38-126) U/L Mycoplasma pneumon IgG (<=0.90) INDEX Assessment and Plan Plan: Acute exacerbation of COPD with secondary shortness of breath and acute bronchospasm and wheezing COPD maintained on Trelegy Ellipta on outpatient basis in addition to O2 overnight Acute hypoxic respiratory failure and the patient is currently on O2 at 3 L/min nasal cannula. Chronic right middle lobe scar as evident on a low-dose CAT scan of the chest from August 2024 Fibromyalgia Sjogren's disease maintained on Plaquenil Previous history of splenectomy Hyperlipidemia Fibromyalgia Osteoarthritis Hypothyroidism Leukocytosis likely secondary to above Hyperlipidemia Previous splenectomy Chronic smoker Plan Slightly improved compared to yesterday will continue same management Supplemental O2 to maintain saturation above 90% currently on 3 L DuoNeb nebulized treatments 4 times a day IV Solu-Medrol 40 mg every 8 hours Rocephin and Zithromax Resume home medications Allow the patient to utilize Trelegy Ellipta from home Smoking cessation counseling Nicotine patch IV fluids with normal saline at rate of 75 cc an hour Will follow
[2024-10-07] MEDS: methylPREDNISolone SOD SUCCI 40 MG/ML 1 ML VIAL IV SCH (16:31)
--- NOTE | 2024-10-08 03:37 | PN ---
PROGRESS NOTE DATE OF SERVICE: 10/07/2024 SUBJECTIVE: This 59-year-old woman was admitted with COPD exacerbation, also had an atypical pneumonia. The patient is on antibiotics steroids, improving significantly. No chest pain, no palpitation. OBJECTIVE: VITAL SIGNS: Pulse is 80, blood pressure 110/70, respirations 16. CHEST: Bilateral scattered rhonchi and crackles. ABDOMEN: Soft, nontender. NERVOUS SYSTEM: No focal deficits. LABORATORY DATA: WBC 17. Rest of the labs are noted. Mycoplasma IgG is positive. The rest are negative. ASSESSMENT: 1. Chronic obstructive pulmonary disease acute exacerbation with possible acute bilateral pneumonia with possible atypical pneumonia or bronchopneumonia. 2. Elevated WBC. 3. Fibromyalgia. 4. History of pneumonia. 5. History of splenectomy. 6. History of cervical fusion. 7. History of lupus. 8. History of Sjogren syndrome. 9. Immunosuppression. RECOMMENDATIONS: This is a 59-year-old woman who presented with multiple complex medical issues. We will monitor the patient closely. I will recommend repeat labs. Otherwise, continue with empiric antibiotics. We will cut down the steroids and closely follow with Pulmonary. Guarded prognosis. Further recommendations to follow. MMODL / IJN: [id number] /
[2024-10-08 10:43] LABS: African American GFR (CKD) >90 (>60 ml/min/1.73 sqM); Anion Gap 6 mmol/L; Basophils # (A) 0.1 k/uL (0-0.2); Basophils % (A) 0 %; Blood Urea Nitrogen 14 mg/dL (7-17); Calcium 9.6 mg/dL (8.4-10.2); Carbon Dioxide 26 mmol/L (22-30); Chloride 107 mmol/L (98-107); Eosinophils # (A) 0.1 k/uL (0-0.7); Eosinophils % (A) 0 %; Glucose 166 mg/dL (74-99); HCT 43.1 % (34.0-46.0); HGB 13.5 gm/dL (11.4-16.0); Hypochromasia Slight; Lymphocytes # (A) 4.5 k/uL (1.0-4.8); Lymphocytes % (A) 17 %; MCHC 31.4 g/dL (31.0-37.0); MCV 95.5 fL (80.0-100.0); Mean Platelet Volume 9.7; Monocytes # (A) 0.8 k/uL (0-1.0); Monocytes % (A) 3 %; Neutrophils # (A) 20.8 k/uL (1.3-7.7); Neutrophils % (A) 79 %; Non-African American GFR(CKD) >90 (>60 ml/min/1.73 sqM); Platelet Count 289 k/uL (150-450); Potassium 4.3 mmol/L (3.5-5.1); RBC 4.51 m/uL (3.80-5.40); RDW 13.2 % (11.5-15.5); Sodium 139 mmol/L (137-145); WBC 26.4 k/uL (3.8-10.6)
[2024-10-08] MEDS: INFLUENZA VACC (6 MOS-64 YRS) 45 MCG/0.5 ML SYRINGE IM ONE (13:07)
--- NOTE | 2024-10-08 15:00 | P.PN ---
Subjective Progress Note Date: 10/08/24 Principal diagnosis: Reason for follow-up is leukocytosis possible pneumonia Patient is a 59-year-old female with a past medical history significant fibromyalgia osteoarthritis pneumonia and thyroid disorder patient did have a history of smoking presented to hospital for evaluation increasing shortness of breath noticed to have elevated white count COVID RSV influenza negative chest x-ray not show any acute infiltrate. On today's evaluation that is 10/08/2024, patient did not have any fever and denies any chills, patient is breathing slightly comfortably on 3 L current oxygen, patient with patient did have a cough bring up some greenish sputum but no sputum has been collected, no nausea vomiting abdominal pain or diarrhea. Patient white count is up to 26.4 creatinine 0.56 Objective - Vital Signs Vital signs: Vital Signs Temp 97.5 F L 10/08/24 07:00 Pulse 81 10/08/24 08:51 Resp 18 10/08/24 07:00 BP 155/89 10/08/24 07:00 Pulse Ox 92 L 10/08/24 07:00 FiO2 Intake & Output 10/07/24 10/08/24 10/08/24 18:59 06:59 18:59 Intake Total 118 Balance 118 Intake: Oral 118 Other: Voiding Method Toilet Toilet Toilet # Voids 2 2 - Exam GENERAL DESCRIPTION: Middle-age female lying in bed in no distress RESPIRATORY SYSTEM: Unlabored breathing , bilateral expiratory wheeze which has slightly decreased in intensity HEART: S1 S2 regular rate and rhythm , ABDOMEN: Soft , no tenderness - Labs CBC & Chem 7: 10/08/24 10:01 10/08/24 10:01 Labs: Abnormal Lab Results - Last 24 Hours (Table) 10/08/24 10/08/24 Range/Units 10:01 10:01 WBC 26.4 H (3.8-10.6) k/uL Neutrophils # 20.8 H (1.3-7.7) k/uL Glucose 166 H (74-99) mg/dL Assessment and Plan (1) Leukocytosis Current Visit: Yes Status: Acute Code(s): D72.829 - ELEVATED WHITE BLOOD CELL COUNT, UNSPECIFIED SNOMED Code(s): 466725649 (2) Community acquired pneumonia Current Visit: No Status: Acute Code(s): J18.9 - PNEUMONIA, UNSPECIFIED ORGANISM SNOMED Code(s): 407194030 Plan: 1patient presented to hospital with increasing shortness of breath cough jimena ent did have elevated white count though initial chest x-ray reported negative for any acute infiltrate likely dealing with COPD exacerbation with purulent tracheobronchitis and pneumonia not entirely excluded. 2patient did have worsening of the white count possible related to steroids as patient mentions some improvement clinically sputum culture have been requested again 3patient to continue Rocephin and Zithromax and monitor clinical course closely Dictation was produced using [employer] dictation software. please excuse any grammatical, word or spelling errors. Time with Patient: Less than 30
--- NOTE | 2024-10-08 15:00 | P.PN ---
Subjective Progress Note Date: 10/07/24 Principal diagnosis: Reason for follow-up is leukocytosis possible pneumonia Patient is a 59-year-old female with a past medical history significant fibromyalgia osteoarthritis pneumonia and thyroid disorder patient did have a history of smoking presented to hospital for evaluation increasing shortness of breath noticed to have elevated white count COVID RSV influenza negative chest x-ray not show any acute infiltrate. On today's evaluation that is 10/07/2024, the patient continues to be afebrile, the patient is on 3 L current oxygen and breathing slightly comfortably, the Pt denies having any chest pain he did have a cough but not bring up any sputum, the patient denies having any abdominal pain no vomiting or any diarrhea has been reported by the nursing staff Patient white count 17.1 creatinine 0.6 Objective - Vital Signs Vital signs: Vital Signs Temp 97.8 F 10/07/24 07:00 Pulse 80 10/07/24 12:22 Resp 16 10/07/24 07:00 BP 133/65 10/07/24 07:00 Pulse Ox 95 10/07/24 07:00 FiO2 Intake & Output 10/06/24 10/07/24 10/07/24 18:59 06:59 18:59 Weight 120.202 kg Other: Voiding Method Toilet # Voids 3 1 - Exam GENERAL DESCRIPTION: Middle-age female lying in bed in no distress RESPIRATORY SYSTEM: Unlabored breathing , bilateral expiratory wheeze HEART: S1 S2 regular rate and rhythm , ABDOMEN: Soft , no tenderness EXTREMITIES: No edema feet - Labs CBC & Chem 7: 10/08/24 10:01 10/08/24 10:01 Labs: Abnormal Lab Results - Last 24 Hours (Table) 10/06/24 10/06/24 10/07/24 Range/Units 11:59 11:59 04:25 WBC 17.11 H (4.50-10.00) X 10*3/uL Immature Gran # 0.08 H (0.00-0.04) X 10*3/uL Neutrophils # 12.75 H (1.80-7.70) X 10*3/uL Eosinophils # 0.01 L (0.04-0.35) X 10*3/uL Potassium 5.6 H (3.5-5.1) mmol/L Anion Gap (4.00-12.00) mmol/L BUN/Creatinine Ratio (12.00-20.00) Ratio Glucose 106 H (74-99) mg/dL AST 40 H (14-36) U/L Alkaline Phosphatase 127 H (38-126) U/L Mycoplasma pneumon IgG 2.56 H (<=0.90) INDEX 10/07/24 Range/Units 04:25 WBC (4.50-10.00) X 10*3/uL Immature Gran # (0.00-0.04) X 10*3/uL Neutrophils # (1.80-7.70) X 10*3/uL Eosinophils # (0.04-0.35) X 10*3/uL Potassium (3.5-5.1) mmol/L Anion Gap 12.40 H (4.00-12.00) mmol/L BUN/Creatinine Ratio 23.00 H (12.00-20.00) Ratio Glucose 148 H (74-99) mg/dL AST (14-36) U/L Alkaline Phosphatase (38-126) U/L Mycoplasma pneumon IgG (<=0.90) INDEX Assessment and Plan (1) Leukocytosis Current Visit: Yes Status: Acute Code(s): D72.829 - ELEVATED WHITE BLOOD CELL COUNT, UNSPECIFIED SNOMED Code(s): 154698289 (2) Community acquired pneumonia Current Visit: No Status: Acute Code(s): J18.9 - PNEUMONIA, UNSPECIFIED ORGANISM SNOMED Code(s): 749180993 Plan: 1patient presented to hospital with increasing shortness of breath cough patient did have elevated white count though initial chest x-ray reported negative for any acute infiltrate likely dealing with COPD exacerbation with purulent tracheobronchitis and pneumonia not entirely excluded. 2try to obtain a sputum for Gram stain and culture. Patient did have worsening of the white count possible related to steroids 3patient to continue Rocephin and Zithromax while waiting for the workup to be completed. Dictation was produced using [employer] dictation software. please excuse any grammatical, word or spelling errors. Time with Patient: Less than 30
--- NOTE | 2024-10-08 15:10 | P.PN ---
Subjective Progress Note Date: 10/08/24 This is a 59-year-old female patient, known history of COPD followed up in our office by Dr. Wilde, maintained on Trelegy Ellipta 1 puff a day and oxygen overnight. The patient ran out of her inhaler and she stopped the inhaler approximately a month ago. She is a chronic smoker and she smokes 1 pack of cigarettes a day. Most recent low-dose CAT scan of the chest that was done on this patient 09/07/2024 showed a chronic right middle lobe scar. No evidence of any pulm nodules or lesions. The patient is coming in with increased dyspnea cough chest tightness and wheezing. Chest x-ray done in the emergency that showed no acute abnormalities. Viral screen has been negative. proBNP level is 154. Troponins are negative. Electrolytes are showing a potassium level of 5.6, otherwise normal. Normal renal function. White cell count is 14.8. Accordingly, the patient was hospitalized for an acuity of exacerbation. She is actively bronchospastic and wheezy. She is on DuoNeb nebulizers aroun d-the-clock. She is on Rocephin and Zithromax and IV Solu-Medrol. Limited sputum production. No nausea. No vomiting. No diarrhea. No chest pain. Noted the patient has been maintained on Plaquenil for history of Sjogren's disease. The patient also has previous splenectomy. Her last hospitalization for COPD and complication was back in January 2023. On 10/07/2024, the patient is slightly improved compared to yesterday. The patient is being treated for acute COPD exacerbation. No new complaints otherwise for now. She remains on bronchodilators. She remains on empiric antibiotic coverage with a combination of Rocephin and Zithromax. She is on Symbicort as maintenance and she is also receiving IV Solu-Medrol 40 mg every 8 hours. She has a nicotine patch. She is also on normal citrate of 75 cc an hour. Labs from today shows a white cell count of 17, hemoglobin 13.6 and electrolytes all within normal limits with a BUN of 13 and a creatinine of 0.6. proBNP level was 154. Legionella urine antigen was negative. Viral screen was also negative. On 10/08/2024, the patient is slowly improving. No new complaints. She remains on bronchodilators. She remains on steroids. Solu-Medrol dose was dropped as the patient was becoming irritable and anxious. She is currently at a dose of 40 mg IV every 8 hours of Solu-Medrol. She remains on Rocephin and Zithromax. She remains on bronchodilators. No tremors. No altered mentation. No chest pain. No other new complaints otherwise for now. Objective - Vital Signs Vital signs: Vital Signs Temp 97.5 F L 10/08/24 07:00 Pulse 81 10/08/24 08:51 Resp 18 10/08/24 07:00 BP 155/89 10/08/24 07:00 Pulse Ox 92 L 10/08/24 07:00 FiO2 Intake & Output 10/07/24 10/08/24 10/08/24 18:59 06:59 18:59 Intake Total 118 Balance 118 Intake: Oral 118 Other: Voiding Method Toilet Toilet # Voids 2 2 - Exam The patient appeared well nourished and normally developed. Vital signs as documented. Obese with a BMI of 42 Head exam is unremarkable. No scleral icterus or corneal arcus noted. Neck is without jugular venous distension, thyromegaly, or carotid bruits. Carotid upstrokes are brisk bilaterally. Lungs are showing diminished breath sounds along with diffuse expiratory wheezes throughout the lung burger bilaterally Cardiac exam reveals the PMI to be normally sized and situated. Rhythm is regular. First and second heart sounds normal. No murmurs, rubs or gallops. Abdominal exam reveals normal bowel sounds, no masses, no organomegaly and no aortic enlargement. Extremities are nonedematous and both femoral and pedal pulses are normal. Examination of the skin revealed no evidence of significant rashes, suspicious appearing nevi or other concerning lesions. Neurologically, the patient is awake and alert and the patient does not have any focal neurological deficit. Cranial nerves are essentially intact. - Labs CBC & Chem 7: 10/08/24 10:01 10/08/24 10:01 Labs: Abnormal Lab Results - Last 24 Hours (Table) 10/08/24 10/08/24 Range/Units 10: 10: WBC 26.4 H (3.8-10.6) k/uL Neutrophils # 20.8 H (1.3-7.7) k/uL Glucose 166 H (74-99) mg/dL Assessment and Plan Plan: Acute exacerbation of COPD with secondary shortness of breath and acute bronchospasm and wheezing COPD maintained on Trelegy Ellipta on outpatient basis in addition to O2 overnight Acute hypoxic respiratory failure and the patient is currently on O2 at 3 L/min nasal cannula. Chronic right middle lobe scar as evident on a low-dose CAT scan of the chest from August 2024 Fibromyalgia Sjogren's disease maintained on Plaquenil Previous history of splenectomy Hyperlipidemia Fibromyalgia Osteoarthritis Hypothyroidism Leukocytosis likely secondary to above Hyperlipidemia Previous splenectomy Chronic smoker Plan Continues to improve Solu-Medrol was tapered due to side effects and currently she is on 40 mg every 8 hours Supplemental O2 to maintain saturation above 90% currently on 3 L DuoNeb nebulized treatments 4 times a day Continue IV Solu-Medrol 40 mg every 8 hours Rocephin and Zithromax Resume home medications Allow the patient to utilize Trelegy Ellipta from home Smoking cessation counseling Nicotine patch IV fluids to KVO Will follow
--- NOTE | 2024-10-09 11:32 | P.PN ---
Subjective Progress Note Date: 10/08/24 59-year-old female patient, known history of COPD followed up in our office by Dr. Wilde, maintained on Trelegy Ellipta 1 puff a day and oxygen overnight. The patient ran out of her inhaler and she stopped the inhaler approximately a month ago. She is a chronic smoker and she smokes 1 pack of cigarettes a day. Most recent low-dose CAT scan of the chest that was done on this patient 09/07/2024 showed a chronic right middle lobe scar. No evidence of any pulm nodules or lesions. The patient is coming in with increased dyspnea cough chest tightness and wheezing. Chest x-ray done in the emergency that showed no acute abnormalities. Viral screen has been negative. proBNP level is 154. Troponins are negative. Electrolytes are showing a potassium level of 5.6, otherwise normal. Normal renal function. White cell count is 14.8. Accordingly, the patient was hospitalized for an acuity of exacerbation. She is actively bronchospastic and wheezy. She is on DuoNeb nebulizers [id number]. She is on Rocephin and Zithromax and IV Solu-Medrol. Limited sputum production. No nausea. No vomiting. No diarrhea. No chest pain. Noted the patient has been maintained on Plaquenil for history of Sjogren's disease. The patient also has previous splenectomy. Her last hospitalization for COPD and complication was back in January 2023. Objective - Vital Signs Vital signs: Vital Signs Temp 97.5 F L 10/08/24 07:00 Pulse 81 10/08/24 08:51 Resp 18 10/08/24 07:00 BP 155/89 10/08/24 07:00 Pulse Ox 92 L 10/08/24 07:00 FiO2 Intake & Output 10/07/24 10/08/24 10/08/24 18:59 06:59 18:59 Intake Total 118 Balance 118 Intake: Oral 118 Other: Voiding Method Toilet Toilet Toilet # Voids 2 2 - Exam Head exam is unremarkable. No scleral icterus or corneal arcus noted. Neck is without jugular venous distension, thyromegaly, or carotid bruits. Carotid upstrokes are brisk bilaterally. Lungs are showing diminished breath sounds along with diffuse expiratory wheezes throughout the lung burger bilaterally Cardiac exam reveals the PMI to be normally sized and situated. Rhythm is regular. First and second heart sounds normal. No murmurs, rubs or gallops. Abdominal exam reveals normal bowel sounds, no masses, no organomegaly and no aortic enlargement. Extremities are nonedematous and both femoral and pedal pulses are normal. Examination of the skin revealed no evidence of significant rashes, suspicious appearing nevi or other concerning lesions. Neurologically, the patient is awake and alert and the patient does not have any focal neurological deficit. Cranial nerves are essentially intact. - Labs CBC & Chem 7: 10/08/24 10:10/08/24 10:01 Labs: Abnormal Lab Results - Last 24 Hours (Table) 10/08/24 10/08/24 Range/Units 10: 10:01 WBC 26.4 H (3.8-10.6) k/uL Neutrophils # 20.8 H (1.3-7.7) k/uL Glucose 166 H (74-99) mg/dL Assessment and Plan Assessment: Acute exacerbation of COPD with acute bronchospasm --History of COPD maintained on Trelegy Ellipta on outpatient basis in addition to O2 overnight -Currently on methylprednisone 40 mg IV every 8 hours; bronchodilator nebulizer treatments along with Symbicort 160-4.5 mcg twice daily -Patient remains on IV Rocephin and azithromycin for severe purulent bronchitis/COPD Acute hypoxic respiratory failure and the patient is currently on O2 at 3 L/min nasal cannula; will plan to titrate dosing as able. Leukocytosis; white blood count elevated at 26.4; likely associated with steroid use Fibromyalgia; Lyrica 150 mg 3 times daily Sjogren's disease; patient has maintained on Plaquenil Hyperlipidemia; Lipitor 20 mg daily Hypothyroidism; levothyroxine 100 mcg daily Hypertension; metoprolol 50 mg daily Osteoarthritis/chronic back pain; Cymbalta 60 mg daily along with oxycodone 10 mg 3 times daily DVT prophylaxis; SCD/heparin CODE STATUS; full code
--- NOTE | 2024-10-09 13:14 | P.PN ---
Subjective Progress Note Date: 10/09/24 This is a 59-year-old female patient, known history of COPD followed up in our office by Dr. Wilde, maintained on Trelegy Ellipta 1 puff a day and oxygen overnight. The patient ran out of her inhaler and she stopped the inhaler approximately a month ago. She is a chronic smoker and she smokes 1 pack of cigarettes a day. Most recent low-dose CAT scan of the chest that was done on this patient 09/07/2024 showed a chronic right middle lobe scar. No evidence of any pulm nodules or lesions. The patient is coming in with increased dyspnea cough chest tightness and wheezing. Chest x-ray done in the emergency that showed no acute abnormalities. Viral screen has been negative. proBNP level is 154. Troponins are negative. Electrolytes are showing a potassium level of 5.6, otherwise normal. Normal renal function. White cell count is 14.8. Accordingly, the patient was hospitalized for an acuity of exacerbation. She is actively bronchospastic and wheezy. She is on DuoNeb nebulizers aroun d-the-clock. She is on Rocephin and Zithromax and IV Solu-Medrol. Limited sputum production. No nausea. No vomiting. No diarrhea. No chest pain. Noted the patient has been maintained on Plaquenil for history of Sjogren's disease. The patient also has previous splenectomy. Her last hospitalization for COPD and complication was back in January 2023. On 10/07/2024, the patient is slightly improved compared to yesterday. The patient is being treated for acute COPD exacerbation. No new complaints otherwise for now. She remains on bronchodilators. She remains on empiric antibiotic coverage with a combination of Rocephin and Zithromax. She is on Symbicort as maintenance and she is also receiving IV Solu-Medrol 40 mg every 8 hours. She has a nicotine patch. She is also on normal citrate of 75 cc an hour. Labs from today shows a white cell count of 17, hemoglobin 13.6 and electrolytes all within normal limits with a BUN of 13 and a creatinine of 0.6. proBNP level was 154. Legionella urine antigen was negative. Viral screen was also negative. On 10/08/2024, the patient is slowly improving. No new complaints. She remains on bronchodilators. She remains on steroids. Solu-Medrol dose was dropped as the patient was becoming irritable and anxious. She is currently at a dose of 40 mg IV every 8 hours of Solu-Medrol. She remains on Rocephin and Zithromax. She remains on bronchodilators. No tremors. No altered mentation. No chest pain. No other new complaints otherwise for now. 10/09/2024, patient is stable, less bronchospastic and wheezy and has no specific new complaints. Remains on IV Solu-Medrol 40 mg every 8 hours. Remains on Symbicort and DuoNeb updrafts. No new labs are available from today. White cell count is to be monitored. Objective - Vital Signs Vital signs: Vital Signs Temp 98.0 F 10/09/24 06:50 Pulse 74 10/09/24 08:43 Resp 17 10/09/24 06:50 BP 150/83 10/09/24 06:50 Pulse Ox 95 10/09/24 06:50 FiO2 Intake & Output 10/08/24 10/09/24 10/09/24 18:59 06:59 18:59 Intake Total 658 118 Balance 658 118 Intake: Oral 658 118 Other: Voiding Method Toilet Toilet # Voids 3 2 - Exam The patient appeared well nourished and normally developed. Vital signs as documented. Obese with a BMI of 42 Head exam is unremarkable. No scleral icterus or corneal arcus noted. Neck is without jugular venous distension, thyromegaly, or carotid bruits. Carotid upstrokes are brisk bilaterally. Lungs are showing diminished breath sounds along with diffuse expiratory wheezes throughout the lung burger bilaterally Cardiac exam reveals the PMI to be normally sized and situated. Rhythm is regular. First and second heart sounds normal. No murmurs, rubs or gallops. Abdominal exam reveals normal bowel sounds, no masses, no organomegaly and no aortic enlargement. Extremities are nonedematous and both femoral and pedal pulses are normal. Examination of the skin revealed no evidence of significant rashes, suspicious appearing nevi or other concerning lesions. Neurologically, the patient is awake and alert and the patient does not have any focal neurological deficit. Cranial nerves are essentially intact. - Labs CBC & Chem 7: 10/08/24 10:01 10/08/24 10:01 Labs: Abnormal Lab Results - Last 24 Hours (Table) 12/21/24 12/21/24 Range/Units 10:01 10:01 WBC 26.4 H (3.8-10.6) k/uL Neutrophils # 20.8 H (1.3-7.7) k/uL Glucose 166 H (74-99) mg/dL Assessment and Plan Plan: Acute exacerbation of COPD with secondary shortness of breath and acute bronchospasm and wheezing COPD maintained on Trelegy Ellipta on outpatient basis in addition to O2 overnight Acute hypoxic respiratory failure and the patient is currently on O2 at 3 L/min nasal cannula. Chronic right middle lobe scar as evident on a low-dose CAT scan of the chest from August 2024 Fibromyalgia Sjogren's disease maintained on Plaquenil Previous history of splenectomy Hyperlipidemia Fibromyalgia Osteoarthritis Hypothyroidism Leukocytosis likely secondary to above Hyperlipidemia Previous splenectomy Chronic smoker Plan Continues to improve, not absolutely ready for discharge yet. Continue steroids and the patient is on Solu-Medrol 40 mg every 8 hours Supplemental O2 to maintain saturation above 90% currently on 3 L DuoNeb nebulized treatments 4 times a day Continue IV Solu-Medrol 40 mg every 8 hours Rocephin and Zithromax Resume home medications Allow the patient to utilize Trelegy Ellipta from home Smoking cessation counseling Nicotine patch IV fluids to KVO Will follow
[2024-10-09 13:49] LABS: Basophils % (A) 0 %; Eosinophils # (A) 0.1 k/uL (0-0.7); Eosinophils % (A) 0 %; HGB 13.9 gm/dL (11.4-16.0); Hypochromasia Slight; Lymphocytes # (A) 3.4 k/uL (1.0-4.8); Lymphocytes % (A) 17 %; MCH 30.2 pg (25.0-35.0); MCHC 31.6 g/dL (31.0-37.0); MCV 95.7 fL (80.0-100.0); Mean Platelet Volume 9.3; Monocytes # (A) 1.1 k/uL (0-1.0); Monocytes % (A) 6 %; Neutrophils # (A) 15.1 k/uL (1.3-7.7); Neutrophils % (A) 75 %; Platelet Count 310 k/uL (150-450); RDW 13.2 % (11.5-15.5); WBC 20.1 k/uL (3.8-10.6)
[2024-10-09 14:04] LABS: African American GFR (CKD) >90 (>60 ml/min/1.73 sqM); Anion Gap 9 mmol/L; Blood Urea Nitrogen 17 mg/dL (7-17); Calcium 9.5 mg/dL (8.4-10.2); Carbon Dioxide 26 mmol/L (22-30); Chloride 105 mmol/L (98-107); Glucose 95 mg/dL (74-99); Non-African American GFR(CKD) >90 (>60 ml/min/1.73 sqM); Potassium 4.2 mmol/L (3.5-5.1); Sodium 140 mmol/L (137-145)
--- NOTE | 2024-10-09 17:19 | P.PN ---
Subjective Progress Note Date: 10/09/24 59-year-old female patient, known history of COPD followed up in our office by Dr. Wilde, maintained on Trelegy Ellipta 1 puff a day and oxygen overnight. The patient ran out of her inhaler and she stopped the inhaler approximately a month ago. She is a chronic smoker and she smokes 1 pack of cigarettes a day. Most recent low-dose CAT scan of the chest that was done on this patient 09/07/2024 showed a chronic right middle lobe scar. No evidence of any pulm nodules or lesions. The patient is coming in with increased dyspnea cough chest tightness and wheezing. Chest x-ray done in the emergency that showed no acute abnormalities. Viral screen has been negative. proBNP level is 154. Troponins are negative. Electrolytes are showing a potassium level of 5.6, otherwise normal. Normal renal function. White cell count is 14.8. Accordingly, the patient was hospitalized for an acuity of exacerbation. She is actively bronchospastic and wheezy. She is on DuoNeb nebulizers [id number]. She is on Rocephin and Zithromax and IV Solu-Medrol. Limited sputum production. No nausea. No vomiting. No diarrhea. No chest pain. Noted the patient has been maintained on Plaquenil for history of Sjogren's disease. The patient also has previous splenectomy. Her last hospitalization for COPD and complication was back in January 2023. 10/09/2024 --patient is stable, less bronchospastic and wheezy and has no specific new complaints. Remains on IV Solu-Medrol 40 mg every 8 hours. Remains on Symbicort and DuoNeb updrafts. No new labs are available from today. White cell count is to be monitored. Continues to improve, not absolutely ready for discharge yet. Continue steroids and the patient is on Solu-Medrol 40 mg every 8 hours Supplemental O2 to maintain saturation above 90% currently on 3 L DuoNeb nebulized treatments 4 times a day Objective - Vital Signs Vital signs: Vital Signs Temp 98.0 F 10/09/24 06:50 Pulse 74 10/09/24 08:43 Resp 17 10/09/24 06:50 BP 150/83 10/09/24 06:50 Pulse Ox 95 10/09/24 06:50 FiO2 Intake & Output 10/08/24 10/09/24 10/09/24 18:59 06:59 18:59 Intake Total 658 118 Balance 658 118 Intake: Oral 658 118 Other: Voiding Method Toilet Toilet # Voids 3 2 - Exam Head exam is unremarkable. No scleral icterus or corneal arcus noted. Neck is without jugular venous distension, thyromegaly, or carotid bruits. Carotid upstrokes are brisk bilaterally. Lungs are showing diminished breath sounds along with diffuse expiratory wheezes throughout the lung burger bilaterally Cardiac exam reveals the PMI to be normally sized and situated. Rhythm is regular. First and second heart sounds normal. No murmurs, rubs or gallops. Abdominal exam reveals normal bowel sounds, no masses, no organomegaly and no aortic enlargement. Extremities are nonedematous and both femoral and pedal pulses are normal. Examination of the skin revealed no evidence of significant rashes, suspicious appearing nevi or other concerning lesions. Neurologically, the patient is awake and alert and the patient does not have any focal neurological deficit. Cranial nerves are essentially intact. - Labs CBC & Chem 7: 10/09/24 13:36 10/09/24 13:36 Assessment and Plan Assessment: Acute exacerbation of COPD with acute bronchospasm --History of COPD maintained on Trelegy Ellipta on outpatient basis in addition to O2 overnight -Currently on methylprednisone 40 mg IV every 8 hours; bronchodilator nebulizer treatments along with Symbicort 160-4.5 mcg twice daily -Patient remains on IV Rocephin and azithromycin for severe purulent bronchitis/COPD Acute hypoxic respiratory failure and the patient is currently on O2 at 3 L/min nasal cannula; will plan to titrate dosing as able. Leukocytosis; white blood count elevated at 26.4; likely associated with steroid use Fibromyalgia; Lyrica 150 mg 3 times daily Sjogren's disease; patient has maintained on Plaquenil Hyperlipidemia; Lipitor 20 mg daily Hypothyroidism; levothyroxine 100 mcg daily Hypertension; metoprolol 50 mg daily Osteoarthritis/chronic back pain; Cymbalta 60 mg daily along with oxycodone 10 mg 3 times daily DVT prophylaxis; SCD/heparin CODE STATUS; full code
[2024-10-10 08:43] LABS: BUN/Creat Ratio 20.71 Ratio (12.00-20.00); Blood Urea Nitrogen 14.5 mg/dL (9.0-27.0); Calcium 9.2 mg/dL (8.7-10.3); Carbon Dioxide 26.7 mmol/L (21.6-31.8); Chloride 103 mmol/L (96-109); Glucose 145 mg/dL (70-110); Potassium 4.5 mmol/L (3.5-5.5); Sodium 139 mmol/L (135-145)
[2024-10-10] MEDS: predniSONE 20 MG TAB PO SCH (08:49)
[2024-10-10 09:15] LABS: Basophils # (A) 0.01 X 10*3/uL (0.00-0.10); Basophils % (A) 0.1 %; Eosinophils # (A) 0 X 10*3/uL (0.04-0.35); Eosinophils % (A) 0 %; HCT 41.1 % (37.2-46.3); HGB 13.2 g/dL (12.0-15.0); Lymphocytes # (A) 3.59 X 10*3/uL (0.90-5.00); Lymphocytes % (A) 20.4 %; MCH 29.7 pg (27.0-32.0); MCHC 32.1 g/dL (32.0-37.0); MCV 92.6 FL (80.0-97.0); Mean Platelet Volume 12.9 FL (9.5-12.2); Monocytes # (A) 0.78 X 10*3/uL (0.20-1.00); Monocytes % (A) 4.4 %; NRBC Per 100 WBC 0 X 10*3/uL (0.00-0.01); Neutrophils # (A) 13.08 X 10*3/uL (1.80-7.70); Neutrophils % (A) 74.5 %; Platelet Count 306 X 10*3/uL (140-440); RBC 4.44 X 10*6/uL (4.10-5.20); WBC 17.57 X 10*3/uL (4.50-10.00)
--- NOTE | 2024-10-10 11:29 | P.PN ---
Subjective Progress Note Date: 10/10/24 This is a 59-year-old female patient, known history of COPD followed up in our office by Dr. Wilde, maintained on Trelegy Ellipta 1 puff a day and oxygen overnight. The patient ran out of her inhaler and she stopped the inhaler approximately a month ago. She is a chronic smoker and she smokes 1 pack of cigarettes a day. Most recent low-dose CAT scan of the chest that was done on this patient 09/07/2024 showed a chronic right middle lobe scar. No evidence of any pulm nodules or lesions. The patient is coming in with increased dyspnea cough chest tightness and wheezing. Chest x-ray done in the emergency that showed no acute abnormalities. Viral screen has been negative. proBNP level is 154. Troponins are negative. Electrolytes are showing a potassium level of 5.6, otherwise normal. Normal renal function. White cell count is 14.8. Accordingly, the patient was hospitalized for an acuity of exacerbation. She is actively bronchospastic and wheezy. She is on DuoNeb nebulizers around -the-clock. She is on Rocephin and Zithromax and IV Solu-Medrol. Limited sputum production. No nausea. No vomiting. No diarrhea. No chest pain. Noted the patient has been maintained on Plaquenil for history of Sjogren's disease. The patient also has previous splenectomy. Her last hospitalization for COPD and complication was back in January 2023. On 10/07/2024, the patient is slightly improved compared to yesterday. The patient is being treated for acute COPD exacerbation. No new complaints otherwise for now. She remains on bronchodilators. She remains on empiric antibiotic coverage with a combination of Rocephin and Zithromax. She is on Symbicort as maintenance and she is also receiving IV Solu-Medrol 40 mg every 8 hours. She has a nicotine patch. She is also on normal citrate of 75 cc an hour. Labs from today shows a white cell count of 17, hemoglobin 13.6 and electrolytes all within normal limits with a BUN of 13 and a creatinine of 0.6. proBNP level was 154. Legionella urine antigen was negative. Viral screen was also negative. On 10/08/2024, the patient is slowly improving. No new complaints. She remains on bronchodilators. She remains on steroids. Solu-Medrol dose was dropped as the patient was becoming irritable and anxious. She is currently at a dose of 40 mg IV every 8 hours of Solu-Medrol. She remains on Rocephin and Zithromax. She remains on bronchodilators. No tremors. No altered mentation. No chest pain. No other new complaints otherwise for now. 10/09/2024, patient is stable, less bronchospastic and wheezy and has no specific new complaints. Remains on IV Solu-Medrol 40 mg every 8 hours. Remains on Symbicort and DuoNeb updrafts. No new labs are available from today. White cell count is to be monitored. The patient is seen today October 09, 2024 in follow-up on the regular medical floor. She is currently sitting up in bed. Awake and alert in no acute distress. Denies any worsening shortness of breath, cough or congestion. Feeling back to her baseline. Sputum results revealed no growth. White count 17.5. Hemoglobin 13.2. Platelets 306. Sodium 139. Potassium 4.5. Bicarb 27. BUN 15. Creatinine 0.7. Glucose 145. She is continued on DuoNeb inhalations, Symbicort, Solu-Medrol. Antibiotics in the form of ceftriaxone. Heparin for DVT prophylaxis. NicoDerm patch in place. Procalcitonin negative at 0.03. Objective - Vital Signs Vital signs: Vital Signs Temp 98.2 F 10/10/24 07:29 Pulse 82 10/10/24 08:36 Resp 15 10/10/24 07:29 BP 136/93 10/10/24 07:29 Pulse Ox 96 10/10/24 07:29 FiO2 Intake & Output 10/09/24 10/10/24 10/10/24 18:59 06:59 18:59 Intake Total 236 540 Balance 236 540 Intake: Oral 236 540 Other: Voiding Method Toilet - Exam GENERAL EXAM: Alert, active, pleasant 59year-old female, on 3 L nasal cannula, comfortable in no apparent distress. HEAD: Normocephalic. EYES: Normal reaction of pupils, equal size. NOSE: Clear with pink turbinates. THROAT: No erythema or exudates. NECK: No masses, no JVD. CHEST: No chest wall deformity. LUNGS: Equal air entry with no crackles, wheeze, rhonchi or dullness. CVS: S1 and S2 normal with no audible murmur, regular rhythm. ABDOMEN: No hepatosplenomegaly, normal bowel sounds, no guarding or rigidity. SPINE: No scoliosis or deformity SKIN: No rashes CENTRAL NERVOUS SYSTEM: No focal deficits, tone is normal in all 4 extremities. EXTREMITIES: There is no peripheral edema. No clubbing, no cyanosis. Peripheral pulses are intact. - Labs CBC & Chem 7: 10/10/24 04:05 10/10/24 04:05 Labs: Abnormal Lab Results - Last 24 Hours (Table) 10/09/24 10/10/24 10/10/24 Range/Units 13:36 04:05 04:05 WBC 20.1 H 17.57 H (3.8-10.6) k/uL MPV 12.9 H (9.5-12.2) FL Immature Gran # 0.11 H (0.00-0.04) X 10*3/uL Neutrophils # 15.1 H 13.08 H (1.3-7.7) k/uL Monocytes # 1.1 H (0-1.0) k/uL Eosinophils # 0 L (0.04-0.35) X 10*3/uL BUN/Creatinine Ratio 20.71 H (12.00-20.00) Ratio Glucose 145 H (70-110) mg/dL Microbiology - Last 24 Hours (Table) 10/09/24 09:35 Gram Stain - Preliminary Sputum Assessment and Plan Assessment: Acute exacerbation of chronic obstructive pulmonary disease. Procalcitonin negative at 0.03 Acute on chronic hypoxic respiratory failure secondary to above and the patient is currently on O2 at 3 L/min nasal cannula COPD maintained on Trelegy Ellipta on outpatient basis in addition to O2 overnight Chronic right middle lobe scar as evident on a low-dose CAT scan of the chest from August 2024 Fibromyalgia Sjogren's disease maintained on Plaquenil Previous history of splenectomy Hyperlipidemia Fibromyalgia Osteoarthritis Hypothyroidism Leukocytosis likely secondary to above Hyperlipidemia Previous splenectomy Chronic smoker Plan: The patient was seen and evaluated Labs and medications reviewed Feeling back to her baseline Cleared for discharge Continue her home oxygen, pulmonary medications Complete a prednisone taper Procalcitonin negative No need for antibiotics Educated regarding the importance of smoking cessation NicoDerm patch remains in place Follow-up with Dr. Johnson in our office in 1 week This patient was seen independently by the pulmonary nurse practitioner addressing pulmonary issues I have personally seen and examined the patient, performed the documentation and the assessment and plan as written. Number of minutes spent on the visit: 25 Dictation was produced using [employer] dictation software. Please excuse any grammatical, word or spelling errors.
--- NOTE | 2024-10-10 13:02 | XR ---
EXAMINATION TYPE: XR chest 1V portable DATE OF EXAM: 10/10/2024 12:56 PM COMPARISON: Chest radiographs from 10/06/2024, CT low-dose lung 09/07/2024 TECHNIQUE: XR chest 1V portable Portable AP radiograph of the chest. CLINICAL INDICATION:Female, 59 years old with history of pneumonia; FINDINGS: Lungs/Pleura: There is no evidence of pleural effusion, focal consolidation, or pneumothorax. Pulmonary vascularity: Unremarkable. Heart/mediastinum: Cardiomediastinal silhouette is unremarkable. Musculoskeletal: No acute osseous pathology. IMPRESSION: No acute cardiopulmonary disease/process. [facility], , 10/10/2024 12:59 PM
[2024-10-10 15:52] VITALS: BP 145/94; PULSE 78; RESP 16; TEMP 97.8
--- NOTE | 2024-10-10 22:52 | P.PN ---
Subjective Progress Note Date: 10/09/24 Principal diagnosis: Reason for follow-up is leukocytosis possible pneumonia Patient is a 59-year-old female with a past medical history significant fibromyalgia osteoarthritis pneumonia and thyroid disorder patient did have a history of smoking presented to hospital for evaluation increasing shortness of breath noticed to have elevated white count COVID RSV influenza negative chest x-ray not show any acute infiltrate. On today's evaluation that is 10/09/2024, Patient is afebrile patient is currently on 3 L nasal oxygen and breathing slightly comfortable no chest pain she did have a cough with minimal sputum production no nausea no vomiting no abdominal pain or diarrhea. Patient white count is down to 20.1 creatinine 0.59 Objective - Vital Signs Vital signs: Vital Signs Temp 98.3 F 10/09/24 20:00 Pulse 84 10/09/24 20:33 Resp 17 10/09/24 20:00 BP 131/82 10/09/24 20:00 Pulse Ox 94 L 10/09/24 20:00 FiO2 Intake & Output 10/09/24 10/09/24 10/10/24 06:59 18:59 06:59 Intake Total 236 540 Balance 236 540 Intake: Oral 236 540 Other: Voiding Method Toilet # Voids 2 - Exam GENERAL DESCRIPTION: Middle-age female lying in bed in no distress RESPIRATORY SYSTEM: Unlabored breathing , bilateral expiratory wheeze which has slightly decreased in intensity HEART: S1 S2 regular rate and rhythm , ABDOMEN: Soft , no tenderness - Labs CBC & Chem 7: 10/10/24 04:05 10/10/24 04:05 Labs: Abnormal Lab Results - Last 24 Hours (Table) 10/09/24 Range/Units 13:36 WBC 20.1 H (3.8-10.6) k/uL Neutrophils # 15.1 H (1.3-7.7) k/uL Monocytes # 1.1 H (0-1.0) k/uL Assessment and Plan (1) Leukocytosis Status: Acute Code(s): D72.829 - ELEVATED WHITE BLOOD CELL COUNT, UNSPECIFIED SNOMED Code(s): 070829282 (2) Community acquired pneumonia Status: Acute Code(s): J18.9 - PNEUMONIA, UNSPECIFIED ORGANISM SNOMED Code(s): 011603998 Plan: 1patient presented to hospital with increasing shortness of breath cough patient did have elevated white count though initial chest x-ray reported negative for any acute infiltrate likely dealing with COPD exacerbation with purulent tracheobronchitis and pneumonia not entirely excluded. 2patient did have improvement in her white count sputum cultures currently pending continue with current treatment including bronchodilator and Rocephin and monitor clinical course closely Dictation was produced using [employer] dictation software. please excuse any grammatical, word or spelling errors. Time with Patient: Less than 30
--- NOTE | 2024-10-10 22:53 | P.PN ---
Subjective Progress Note Date: 10/10/24 Principal diagnosis: Reason for follow-up is leukocytosis possible pneumonia Patient is a 59-year-old female with a past medical history significant fibromyalgia osteoarthritis pneumonia and thyroid disorder patient did have a history of smoking presented to hospital for evaluation increasing shortness of breath noticed to have elevated white count COVID RSV influenza negative chest x-ray not show any acute infiltrate. On today's evaluation that is 10/10/2024, the patient continues to be afebrile patient is breathing slightly comfortably and is currently on 3 L nasal cannula oxygen. Denies having any chest pain cough decreased in intensity no nausea vomiting no abdominal pain and no diarrhea. Patient white count 17.57 creatinine 0.7 urine for Legionella antigen negative sputum cultures currently pending chest x-ray repeat did not show any acute abnormality Objective - Vital Signs Vital signs: Vital Signs Temp 97.8 F 10/10/24 14:00 Pulse 78 10/10/24 14:00 Resp 16 10/10/24 14:00 BP 145/94 10/10/24 14:00 Pulse Ox 94 L 10/10/24 14:00 FiO2 Intake & Output 10/10/24 10/10/24 10/11/24 06:59 18:59 06:59 Intake Total 540 Balance 540 Intake: Oral 540 Other: Voiding Method Toilet - Exam GENERAL DESCRIPTION: Middle-age female lying in bed in no distress RESPIRATORY SYSTEM: Unlabored breathing , bilateral expiratory wheeze which has slightly decreased in intensity HEART: S1 S2 regular rate and rhythm , ABDOMEN: Soft , no tenderness - Labs CBC & Chem 7: 10/10/24 04:05 10/10/24 04:05 Labs: Abnormal Lab Results - Last 24 Hours (Table) 10/10/24 10/10/24 Range/Units 04:05 04:05 WBC 17.57 H (4.50-10.00) X 10*3/uL MPV 12.9 H (9.5-12.2) FL Immature Gran # 0.11 H (0.00-0.04) X 10*3/uL Neutrophils # 13.08 H (1.80-7.70) X 10*3/uL Eosinophils # 0 L (0.04-0.35) X 10*3/uL BUN/Creatinine Ratio 20.71 H (12.00-20.00) Ratio Glucose 145 H (70-110) mg/dL Microbiology - Last 24 Hours (Table) 10/09/24 09:35 Gram Stain - Preliminary Sputum Assessment and Plan (1) Leukocytosis Status: Acute Code(s): D72.829 - ELEVATED WHITE BLOOD CELL COUNT, UNSPECIFIED SNOMED Code(s): 068195278 (2) Community acquired pneumonia Status: Acute Code(s): J18.9 - PNEUMONIA, UNSPECIFIED ORGANISM SNOMED Code(s): 309509922 Plan: 1patient presented to hospital with increasing shortness of breath cough patient did have elevated white count though initial chest x-ray reported negative for any acute infiltrate likely dealing with COPD exacerbation with purulent tracheobronchitis and pneumonia not entirely excluded. 2patient white count is trending down chest x-ray repeat did not show any acute infiltrate possibly dealing with acute purulent tracheobronchitis with COPD exacerbation has received about 5 days of antibiotics which should be more than enough and no need for antibiotic on discharge Dictation was produced using [employer] dictation software. please excuse any grammatical, word or spelling errors. Time with Patient: Less than 30
--- NOTE | 2024-10-13 10:26 | P.DS ---
Providers Date of admission: 10/07/24 14:27 Expected date of discharge: 10/10/24 Attending physician: Jose J Carpenter Consults: 10/06/24 15:09 Consult Physician Routine Consulting Provider: Elizabeth Gillespie Consult Reason/Comments: copd Do you want consulting provider notified?: Yes 10/06/24 15:10 Consult Physician Routine Consulting Provider: Raisa Finnegan Consult Reason/Comments: pneumonia Do you want consulting provider notified?: Yes Primary care physician: Gricelda Murdock Hospital Course: Final diagnosis Acute exacerbation of COPD with acute bronchospasm Acute on chronic hypoxic respiratory failure and the patient is currently on O2 at 3 L/min nasal cannula; will plan to titrate dosing as able. Leukocytosis, secondary to steroid use Fibromyalgia Sjogren's disease; patient has maintained on Plaquenil Hyperlipidemia Hypothyroidism Hypertension Osteoarthritis/chronic back pain DVT prophylaxis; SCD/heparin CODE STATUS; full code Discharge disposition Patient is being discharged in a stable condition with guarded prognosis to home. Patient will follow-up with Dr. Murdock in the outpatient setting upon discharge. Patient is to continue with prednisone taper and outpatient follow- up with pulmonary as scheduled. Total time taken is greater than 35 minutes. Hospital course This is a 59-year-old female who was recently admitted with increasing shortness of breath COPD exacerbation with pulmonary following. Patient maintained on [id number] DuoNeb treatments along with IV steroids. Patient showing some improvement and has been cleared by pulmonary for discharge. Patient will continue on prednisone taper along with her Trelegy inhaler and outpatient follow-up. Please refer to other consultation notes for further HPI. Currently no reports of chest pain, shortness of breath, or palpitations. Patient is afebrile. No reports of nausea or vomiting and patient is tolerating diet. Patient will be discharged home. Guarded prognosis given significant COPD. Physical exam: Gen: This is a 59-year-old female who is awake, alert and oriented x 3, well- developed, elderly appearing, morbidly obese HEENT: Head is atraumatic, normocephalic. Pupils equal, round. Sclerae is anicteric. NECK: Supple. No JVD. No lymphadenopathy. No thyromegaly. LUNGS: Diminished breath sounds bilaterally with a few scattered expiratory wheezes and coarse rhonchi. No intercostal retractions. HEART: Regular rate and rhythm. No murmur. ABDOMEN: Soft. Obese. Bowel sounds are present. No masses. No tenderness. EXTREMITIES: No pedal edema. No calf tenderness. NEUROLOGICAL: Patient is awake, alert and oriented x3. Cranial nerves 2 through 12 are grossly intact. Please refer to medication reconciliation sheet for a list of medications. The impression and plan of care has been dictated by Lenore Frost, Nurse Practitioner as directed. Dr. Jayden MD I have performed a history and examination and MDM of this patient, discussed the same with the dictator, and agree with the dictator's assessment and plan as written ,documented as a scribe. Based on total visit time, I have performed more than 50% of the visit. Patient Condition at Discharge: Stable Plan - Discharge Summary Discharge Rx Participant: Yes New Discharge Prescriptions: New Ipratropium-Albuterol Nebulize [Duoneb 0.5 mg-3 mg/3 ml Soln] 3 ml INHALATION RT-QID #100 each Ipratropium-Albuterol Nebulize [Duoneb 0.5 mg-3 mg/3 ml Soln] 3 ml INHALATION RT-QID PRN each PRN Reason: Shortness Of Breath Or Wheezing Nicotine 14Mg/24Hr Patch [Habitrol] 1 patch TRANSDERM DAILY #30 patch Acetaminophen Tab [Tylenol] 650 mg PO Q6HR PRN tab PRN Reason: Fever and/ or Mild Pain Multivitamins, Thera [Multivitamin (formulary)] 1 each PO DAILY@1200 #30 tab predniSONE See Taper PO DIRECTED #30 tab Continue Morphine Sulfate [Ms Contin] 30 mg PO BID Hydroxychloroquine Sulfate [Plaquenil] 400 mg PO DAILY DULoxetine HCL [Cymbalta] 60 mg PO DAILY Atorvastatin [Lipitor] 20 mg PO DAILY Levothyroxine Sodium [Synthroid] 100 mcg PO DAILY Metoprolol Succinate (ER) [Toprol XL] 50 mg PO DAILY #30 tab Clindamycin Phos/Benzoyl Perox [Benzaclin Gel 1-5%] 1 applic TOPICAL DAILY PRN PRN Reason: Acne oxyCODONE HCL [oxyCODONE HCL (IR)] 10 mg PO BID Fluticasone/Umeclidin/Vilanter [Trelegy Ellipta 100-62.5-25] 1 puff INHALATION RT-DAILY Pregabalin [Lyrica] 150 mg PO TID Albuterol Inhaler [Ventolin Hfa Inhaler] 2 puff INHALATION RT-QID PRN PRN Reason: Shortness Of Breath Discharge Medication List Atorvastatin [Lipitor] 20 mg PO DAILY 03/22/20 [History] DULoxetine HCL [Cymbalta] 60 mg PO DAILY 03/22/20 [History] Hydroxychloroquine Sulfate [Plaquenil] 400 mg PO DAILY 03/22/20 [History] Levothyroxine Sodium [Synthroid] 100 mcg PO DAILY 03/22/20 [History] Morphine Sulfate [Ms Contin] 30 mg PO BID 03/22/20 [History] Metoprolol Succinate (ER) [Toprol XL] 50 mg PO DAILY #30 tab 03/28/20 [Rx] Pregabalin [Lyrica] 150 mg PO TID 02/18/21 [History] Albuterol Inhaler [Ventolin Hfa Inhaler] 2 puff INHALATION RT-QID PRN 02/10/23 [History] Clindamycin Phos/Benzoyl Perox [Benzaclin Gel 1-5%] 1 applic TOPICAL DAILY PRN 10/06/24 [History] Fluticasone/Umeclidin/Vilanter [Trelegy Ellipta 100-62.5-25] 1 puff INHALATION RT-DAILY 10/06/24 [History] oxyCODONE HCL [oxyCODONE HCL (IR)] 10 mg PO BID 10/06/24 [History] Acetaminophen Tab [Tylenol] 650 mg PO Q6HR PRN tab 10/10/24 [Rx] Ipratropium-Albuterol Nebulize [Duoneb 0.5 mg-3 mg/3 ml Soln] 3 ml INHALATION RT-QID #100 each 10/10/24 [Rx] Ipratropium-Albuterol Nebulize [Duoneb 0.5 mg-3 mg/3 ml Soln] 3 ml INHALATION RT-QID PRN each 10/10/24 [Rx] Multivitamins, Thera [Multivitamin (formulary)] 1 each PO DAILY@1200 #30 tab 10/10/24 [Rx] Nicotine 14Mg/24Hr Patch [Habitrol] 1 patch TRANSDERM DAILY #30 patch 10/10/24 [Rx] predniSONE See Taper PO DIRECTED #30 tab 10/10/24 [Rx] Follow up Appointment(s)/Referral(s): Law Johnson MD [STAFF PHYSICIAN] - 10/18/24 9:30 am Gricelda Murdock MD [Primary Care Provider] - 1-2 days Activity/Diet/Wound Care/Special Instructions: Activity limited until follow-up Follow-up with primary care provider on discharge Follow-up with pulmonary outpatient Continue taking medications as prescribed Discharge Disposition: HOME SELF-CARE
== END 2024-10-10 17:08 | disposition home or self-care (01) | DRG 190 ==
LOC: EC 11:07 → 6NMEDSUR 13:46 → OBSVTOIN 10-07 14:27
PROVIDERS: ADMIT Hospitalist; ATTEND Hospitalist
DX: J44.1 Chronic obstructive pulmonary disease with (acute) exacerbation (principal); J18.9 Pneumonia, unspecified organism; J96.21 Acute and chronic respiratory failure with hypoxia; D84.9 Immunodeficiency, unspecified; J44.0 Chronic obstructive pulmonary disease with (acute) lower respiratory infection; M19.90 Unspecified osteoarthritis, unspecified site; M35.00 Sjogren syndrome, unspecified; M79.7 Fibromyalgia; Z11.52 Encounter for screening for COVID-19; Z79.51 Long term (current) use of inhaled steroids; Z79.890 Hormone replacement therapy; I10 Essential (primary) hypertension; Z79.899 Other long term (current) drug therapy; Z82.49 Family history of ischemic heart disease and other diseases of the circulatory system; Z90.81 Acquired absence of spleen; Z87.01 Personal history of pneumonia (recurrent); Z96.1 Presence of intraocular lens; Z98.1 Arthrodesis status; G89.29 Other chronic pain; F17.210 Nicotine dependence, cigarettes, uncomplicated; E78.5 Hyperlipidemia, unspecified; J40 Bronchitis, not specified as acute or chronic; E03.9 Hypothyroidism, unspecified; T38.0X5A Adverse effect of glucocorticoids and synthetic analogues, initial encounter; Z79.52 Long term (current) use of systemic steroids; X58.XXXA Exposure to other specified factors, initial encounter; Z88.6 Allergy status to analgesic agent
CPT/HCPCS: 36415; 71045; 71046; 80048; 80053; 83605; 83880; 84145; 84484; 85025; 85610; 85730; 86738; 87070; 87205; 87449; 87636; 90656; 93005; 94640; 96361; 96365; 96366; 96375; 96376; 99285

== ENCOUNTER → 2025-01-19 | Outpatient (CLI) | payer MEDICARE ==
--- NOTE | 2025-01-19 14:25 | MM ---
Reason for Exam: Screening (asymptomatic). Last mammogram was performed 1 year(s) and 10 month(s) ago. Patient History: Menarche at age 12. First Full-Term at age 34. Late child-bearing (after 29). Left ovary removed at age 42. Right ovary removed at age 42. Hysterectomy at age 42. Postmenopausal. Patient has history of breast feeding. Estrogen, starting at age 42 for 4 years. Hormonal Contraceptives for 20 years from age 13 until age 33. Maternal aunt had ovarian cancer at or over age 50. Sister had breast cancer, age 43. Risk Values: Maribel 5 year model risk: 2.9%. NCI Lifetime model risk: 14.3%. Prior Study Comparison: 07/24/2017 Screening Mammogram, [facility]. 09/08/2018 Bilateral Screening Mammogram, [facility] 09/23/2019 Bilateral Screening Mammogram, [facility]. 10/06/2019 Bilateral Diagnostic Mammogram, [facility]. 03/25/2023 Bilateral MG 3D screening mammo w/cad, [facility]. Tissue Density: The breasts are heterogeneously dense, which may obscure small masses. Findings: Analyzed By CAD. There is no suspicious group of microcalcifications or new suspicious mass in either breast. Overall Assessment: Benign, BI-RAD 2 Management: Screening Mammogram of both breasts in 1 year. . Patient should continue monthly self-breast exams. A clinical breast exam by your physician is recommended on an annual basis. This exam should not preclude additional follow-up of suspicious palpable abnormalities. Note on Maribel scores and lifetime risk: 1. A Maribel score greater than 3% is considered moderate risk. If this is the case, consider specialist referral to assess eligibility for a risk reducing agent. 2. If overall lifetime risk for the development of breast cancer is 20% or higher, the patient may qualify for future screening with alternating mammogram and breast MRI. [facility], , 01/19/2025 2:22 PM. Electronically signed and approved by: Tam Mayberry M.D. Radiolog[facility]
== END | disposition home or self-care (01) ==
LOC: RADMAMWWP 13:45
PROVIDERS: ATTEND Family Medicine
DX: Z12.31 Encounter for screening mammogram for malignant neoplasm of breast (principal); R92.333 Mammographic heterogeneous density, bilateral breasts; Z78.0 Asymptomatic menopausal state; Z80.3 Family history of malignant neoplasm of breast; Z92.0 Personal history of contraception
CPT/HCPCS: 77063; 77067

== ENCOUNTER → 2025-04-07 | Outpatient (CLI) | payer MEDICARE ==
[2025-04-08 01:52] LABS: Appearance,Urine Cloudy (Clear); Bilirubin,Urine Negative (Negative); Blood,Urine Negative (Negative); Color,Urine Dark Yellow (Yellow); Ketones,Urine Trace (Negative); Nitrite,Urine Negative (Negative); PH, Urine 5.5
[2025-04-08 02:12] LABS: Bacteria,Urine 3+ (None Seen)
== END | disposition home or self-care (01) ==
LOC: LABWHC1 09:04
PROVIDERS: ATTEND Family Medicine
DX: N39.0 Urinary tract infection, site not specified (principal)
CPT/HCPCS: 81001